=== PATIENT | male | born 1955 | race Caucasian/White ===

== ENCOUNTER → 2016-09-04 | Outpatient (CLI) | payer BC ==
[~2016-09-04] MED LIST: INVEGA TRINZA IM ONE
[2016-09-04 12:34] VITALS: BP 121/65; PULSE 86; RESP 16; TEMP 97.6
== END | disposition home or self-care (01) ==
LOC: PROCWHC3 11:57
PROVIDERS: ATTEND Psychiatry & Neurology Psychiatry
DX: F20.9 Schizophrenia, unspecified (principal)
CPT/HCPCS: 96372

== ENCOUNTER 2016-10-13 19:11 | Inpatient (IN) | payer BC ==
[2016-10-13] MEDS ORDERED: SODIUM CHLORIDE 0.9% 1,000 ML IV ONE (19:15)
[2016-10-13 19:44] LABS: Glucose,Whole Blood 87 mg/dL (75-99)
[2016-10-13 19:47] LABS: Basophils % (A) 0 %; CH 32.8; CHCM 34.3; Eosinophils % (A) 0 %; HCT 37.2 % (39.0-53.0); HDW 3.08; HGB 12.6 gm/dL (13.0-17.5); Luc # (Auto) 0.18; Luc % (Auto) 3; Lymphocytes # (A) 1.1 k/uL (1.0-4.8); Lymphocytes % (A) 20 %; MCH 32.5 pg (25.0-35.0); MCHC 33.8 g/dL (31.0-37.0); MCV 96.1 fL (80.0-100.0); Mean Platelet Volume 7.4; Monocytes # (A) 0.3 k/uL (0-1.0); Monocytes % (A) 6 %; Neutrophils # (A) 3.7 k/uL (1.3-7.7); Neutrophils % (A) 70 %; RBC 3.87 m/uL (4.30-5.90); RDW 12.3 % (11.5-15.5); WBC 5.4 k/uL (3.8-10.6); WBC (Perox) 5.71
[2016-10-13 20:05] LABS: ALT 32 U/L (21-72); AST 27 U/L (17-59); Acetaminophen <10.0 ug/mL; Alcohol <10 mg/dL; Alkaline Phosphatase 53 U/L (38-126); Anion Gap 12 mmol/L; Blood Urea Nitrogen 17 mg/dL (9-20); Carbon Dioxide 25 mmol/L (22-30); Chloride 107 mmol/L (98-107); Glucose 88 mg/dL (74-99); Non-African American GFR(MDRD) >60 (>60 ml/min/1.73 sqM); Potassium 3.7 mmol/L (3.5-5.1); Salicylate <1.0 mg/dL; Sodium 144 mmol/L (137-145); Total Bilirubin 0.4 mg/dL (0.2-1.3); Total Protein 6.4 g/dL (6.3-8.2)
[2016-10-13 20:11] LABS: Creatine Kinase 41 U/L (55-170)
--- NOTE | 2016-10-13 20:14 | CT ---
EXAMINATION TYPE: CT brain wo con DATE OF EXAM: 10/13/2016 8:08 PM COMPARISON: NONE HISTORY: 61-year-old male shows signs of altered mental status. Confusion. Poor historian. TECHNIQUE: Examination was done in axial plane without intravenous contrast. Coronal and sagittal r econstructions performed. CT DLP: 988.3 mGycm Automated exposure control for dose reduction was used. FINDINGS: There is no evidence of acute intracranial hemorrhage, acute ischemic changes, mass, mass-effect, or extra-axial fluid collection. There is no effacement of cerebral sulci or basal subarachnoid cister ns. There is no hydrocephalus. There is no midline shift. Perez-white matter distinction is preserv ed. Mild age-related supratentorial volume loss. Old blowout fracture medial right orbital wall. Minimal mucosal thickening posterior left ethmoid air cells. Mastoid air cells well pneumatized. IMPRESSION: No acute intracranial abnormality seen. Mild age-related atrophy.
[2016-10-13 20:22] LABS: INR 1.1 (<1.1)
[2016-10-13 20:23] LABS: Creatine Kinase MB 0.4 ng/mL (0.0-2.4); Partial Thromboplastin Time 22.1 sec (22.0-30.0); Troponin I <0.012 ng/mL (0.000-0.034)
--- NOTE | 2016-10-13 20:31 | XR ---
EXAMINATION TYPE: XR chest 2V DATE OF EXAM: 10/13/2016 8:15 PM COMPARISON: None HISTORY: 61 year-old male altered mental status, confusion, swollen legs TECHNIQUE: Frontal and lateral views FINDINGS: The cardiomediastinal silhouette, aorta, and pulmonary vasculature are within normal limits. There is mild bronchial wall thickening and mild hyperinflation. Otherwise, lungs and pleural spaces are anastasiya r. Subtle nipple shadow seen at the peripheral left base. IMPRESSION: Hyperinflation that could be from depth of inspiration or underlying emphysema. Some bronchial wall t hickening suggests bronchitis or chronic asthma. No infiltrates seen.
[2016-10-13 21:32] LABS: Appearance,Urine Clear (Clear); Bilirubin,Urine Negative (Negative); Glucose,Urine (UA) Negative (Negative); Ketones,Urine Negative (Negative); Leukocyte Esterase,Urine Trace (Negative); Mucus,Urine Rare /hpf; Nitrite,Urine Negative (Negative); PH, Urine 6.5 (5.0-8.0); Particle Count 1265; Protein,Urine Trace (Negative); RBC,Urine 79 /hpf (0-5); Specific Gravity,Urine 1.014 (1.001-1.035); UA Billing (MACRO vs. MICRO) MICRO; Urobilinogen,Urine <2.0 mg/dL (<2.0); WBC,Urine 12 /hpf (0-5)
--- NOTE | 2016-10-13 21:34 | ED ---
Altered Mental Status HPI - General Source: patient, EMS, RN notes reviewed Mode of arrival: EMS Limitations: altered mental status - History of Present Illness MD Complaint: altered mental status, other <Bryn Jeong - Last Filed: 10/13/16 21:34> <Binu Dorman - Last Filed: 10/13/16 22:59> - General Chief Complaint: Altered Mental Status Stated Complaint: Altered mental Time Seen by Provider: 10/13/16 19:11 - History of Present Illness Initial Comments: This is a 61-year-old male with a history of schizophrenia who is brought in by EMS for evaluation after being found walking on the street in just his underwear nares home. Patient denies any fevers chills nausea vomiting sweats or trauma he denies any drugs or alcohol. He is not very conversant however with answers. He apparently is on medications but states they are not working. He has no other complaints at this time. (Bryn Jeong) - Related Data Home Medications Medication Instructions Recorded Confirmed Simvastatin [Zocor] 40 mg PO HS 02/09/16 10/13/16 Paliperidone Palmitate [Invega 410 mg IM Q90D 09/04/16 10/13/16 Trinza] Acetaminophen with Codeine 1 tab PO TID PRN 10/13/16 10/13/16 [Tylenol w/codeine #4] Diazepam [Valium] 5 mg PO TID PRN 10/13/16 10/13/16 Allergies Allergy/AdvReac Type Severity Reaction Status Date / Time NSAIDS (Non-Steroidal AdvReac Nausea Verified 10/13/16 19:54 Anti-Inflamma Review of Systems ROS Other: All systems not noted in ROS Statement are negative. <Bryn Jeong - Last Filed: 10/13/16 21:34> ROS Other: All systems not noted in ROS Statement are negative. <Binu Dorman - Last Filed: 10/13/16 22:59> ROS Statement: Those systems with pertinent positive or pertinent negative responses have been documented in the HPI. Past Medical History Past Medical History: Hyperlipidemia History of Any Multi-Drug Resistant Organisms: None Reported Past Surgical History: Orthopedic Surgery Additional Past Surgical History / Comment(s): bilateral ankles, removal of skin cancer on l sabianism Past Psychological History: Anxiety, Bipolar, Depression, Schizoaffective Disorder Smoking Status: Former smoker Past Alcohol Use History: None Reported Past Drug Use History: None Reported <Bryn Jeong - Last Filed: 10/13/16 21:34> General Exam Limitations: altered mental status General appearance: alert Head exam: Present: atraumatic, normocephalic, normal inspection Eye exam: Present: normal appearance, PERRL, EOMI. Absent: scleral icterus, conjunctival injection, periorbital swelling ENT exam: Present: normal exam, mucous membranes moist Neck exam: Present: normal inspection. Absent: tenderness, meningismus, lymphadenopathy Respiratory exam: Present: normal lung sounds bilaterally. Absent: respiratory distress, wheezes, rales, rhonchi, stridor Cardiovascular Exam: Present: regular rate, normal rhythm, normal heart sounds. Absent: systolic murmur, diastolic murmur, rubs, gallop, clicks GI/Abdominal exam: Present: soft, normal bowel sounds. Absent: distended, tenderness, guarding, rebound, rigid Extremities exam: Present: normal inspection, full ROM, normal capillary refill. Absent: tenderness, pedal edema, joint swelling, calf tenderness Back exam: Present: normal inspection Neurological exam: Present: alert, oriented X3, CN II-XII intact Psychiatric exam: Present: depressed, flat affect Skin exam: Present: warm, dry, intact, normal color. Absent: rash <Bryn Jeong - Last Filed: 10/13/16 21:34> <Binu Dorman - Last Filed: 10/13/16 22:59> - General Exam Comments Initial Comments: Is a well-developed well-nourished awake alert but slow to respond male. (Bryn Jeong) Course <Bryn Jeogn - Last Filed: 10/13/16 21:34> <Binu Dorman - Last Filed: 10/13/16 22:59> Vital Signs 10/13/16 10/13/16 10/13/16 19:15 20:15 21:00 Temperature 97.5 F L Pulse Rate 72 70 67 Respiratory 18 18 18 Rate Blood Pressure 114/57 114/58 106/60 O2 Sat by Pulse 97 100 98 Oximetry 10/13/16 22:30 Temperature Pulse Rate 72 Respiratory 18 Rate Blood Pressure 115/58 O2 Sat by Pulse 99 Oximetry - Reevaluation(s) Reevaluation #1: 10/13/16 21:35 The patient will be evaluated by psychiatric service. Patient will be endorsed to Dr. Dorman who will make the final disposition (Bryn Jeong) Medical Decision Making - Lab Data Result diagrams: 10/13/16 19:25 10/13/16 19:25 - EKG Data -: EKG Interpreted by [facility] EKG shows normal: sinus rhythm (Sinus rhythm with a rate of 77 appear of 01 66 QRS duration 80 QT/QTC of 370/[address] complex [address]-t wave changes.) <Bryn Jeong - Last Filed: 10/13/16 21:34> - Lab Data Result diagrams: 10/13/16 19:25 10/13/16 19:25 <Binu Dorman - Last Filed: 10/13/16 22:59> - Lab Data Lab Results 10/13/16 10/13/16 10/13/16 Range/Units 19:25 19:25 19:25 WBC 5.4 (3.8-10.6) k/uL RBC 3.87 L (4.30-5.90) m/uL Hgb 12.6 L (13.0-17.5) gm/dL Hct 37.2 L (39.0-53.0) % MCV 96.1 (80.0-100.0) fL MCH 32.5 (25.0-35.0) pg MCHC 33.8 (31.0-37.0) g/dL RDW 12.3 (11.5-15.5) % Plt Count 199 (150-450) k/uL Neutrophils % 70 % Lymphocytes % 20 % Monocytes % 6 % Eosinophils % 0 % Basophils % 0 % Neutrophils # 3.7 (1.3-7.7) k/uL Lymphocytes # 1.1 (1.0-4.8) k/uL Monocytes # 0.3 (0-1.0) k/uL Eosinophils # 0.0 (0-0.7) k/uL Basophils # 0.0 (0-0.2) k/uL PT (9.0-12.0) sec INR (<1.1) APTT (22.0-30.0) sec Sodium 144 (137-145) mmol/L Potassium 3.7 (3.5-5.1) mmol/L Chloride 107 (98-107) mmol/L Carbon Dioxide 25 (22-30) mmol/L Anion Gap 12 mmol/L BUN 17 (9-20) mg/dL Creatinine 0.60 L (0.66-1.25) mg/dL Est GFR (MDRD) Af Amer >60 (>60 ml/min/1.73 sqM) Est GFR (MDRD) Non-Af >60 (>60 ml/min/1.73 sqM) Glucose 88 (74-99) mg/dL POC Glucose (mg/dL) (75-99) mg/dL POC Glu Pastry Supervisor ID Calcium 9.0 (8.4-10.2) mg/dL Magnesium 2.0 (1.6-2.3) mg/dL Total Bilirubin 0.4 (0.2-1.3) mg/dL AST 27 (17-59) U/L ALT 32 (21-72) U/L Alkaline Phosphatase 53 (38-126) U/L Ammonia (<30) umol/L Total Creatine Kinase 41 L (55-170) U/L CK-MB (CK-2) 0.4 (0.0-2.4) ng/mL CK-MB (CK-2) Rel Index 1.0 Troponin I <0.012 (0.000-0.034) ng/mL Total Protein 6.4 (6.3-8.2) g/dL Albumin 4.0 (3.5-5.0) g/dL Urine Color Urine Appearance (Clear) Urine pH (5.0-8.0) Ur Specific [place] (1.001-1.035) Urine Protein (Negative) Urine Glucose (UA) (Negative) Urine Ketones (Negative) Urine Blood (Negative) Urine Nitrite (Negative) Urine Bilirubin (Negative) Urine Urobilinogen (<2.0) mg/dL Ur Leukocyte Esterase (Negative) Urine RBC (0-5) /hpf Urine WBC (0-5) /hpf Urine Mucus (None) /hpf Salicylates <1.0 mg/dL Urine Opiates Screen (NotDetected) Ur Oxycodone Screen (NotDetected) Urine Methadone Screen (NotDetected) Ur Propoxyphene Screen (NotDetected) Acetaminophen <10.0 ug/mL Ur Barbiturates Screen (NotDetected) U Tricyclic Antidepress (NotDetected) Ur Phencyclidine Scrn (NotDetected) Ur Amphetamines Screen (NotDetected) U Methamphetamines Scrn (NotDetected) U Benzodiazepines Scrn (NotDetected) Urine Cocaine Screen (NotDetected) U Marijuana (THC) Screen (NotDetected) Serum Alcohol <10 mg/dL 10/13/16 10/13/16 10/13/16 Range/Units 19:25 19:25 19:43 WBC (3.8-10.6) k/uL RBC (4.30-5.90) m/uL Hgb (13.0-17.5) gm/dL Hct (39.0-53.0) % MCV (80.0-100.0) fL MCH (25.0-35.0) pg MCHC (31.0-37.0) g/dL RDW (11.5-15.5) % Plt Count (150-450) k/uL Neutrophils % % Lymphocytes % % Monocytes % % Eosinophils % % Basophils % % Neutrophils # (1.3-7.7) k/uL Lymphocytes # (1.0-4.8) k/uL Monocytes # (0-1.0) k/uL Eosinophils # (0-0.7) k/uL Basophils # (0-0.2) k/uL PT 11.0 (9.0-12.0) sec INR 1.1 (<1.1) APTT 22.1 (22.0-30.0) sec Sodium (137-145) mmol/L Potassium (3.5-5.1) mmol/L Chloride (98-107) mmol/L Carbon Dioxide (22-30) mmol/L Anion Gap mmol/L BUN (9-20) mg/dL Creatinine (0.66-1.25) mg/dL Est GFR (MDRD) Af Amer (>60 ml/min/1.73 sqM) Est GFR (MDRD) Non-Af (>60 ml/min/1.73 sqM) Glucose (74-99) mg/dL POC Glucose (mg/dL) 87 (75-99) mg/dL POC Glu Pastry Supervisor ID Elena Brand Calcium (8.4-10.2) mg/dL Magnesium (1.6-2.3) mg/dL Total Bilirubin (0.2-1.3) mg/dL AST (17-59) U/L ALT (21-72) U/L Alkaline Phosphatase (38-126) U/L Ammonia <9 (<30) umol/L Total Creatine Kinase (55-170) U/L CK-MB (CK-2) (0.0-2.4) ng/mL CK-MB (CK-2) Rel Index Troponin I (0.000-0.034) ng/mL Total Protein (6.3-8.2) g/dL Albumin (3.5-5.0) g/dL Urine Color Urine Appearance (Clear) Urine pH (5.0-8.0) Ur Specific [place] (1.001-1.035) Urine Protein (Negative) Urine Glucose (UA) (Negative) Urine Ketones (Negative) Urine Blood (Negative) Urine Nitrite (Negative) Urine Bilirubin (Negative) Urine Urobilinogen (<2.0) mg/dL Ur Leukocyte Esterase (Negative) Urine RBC (0-5) /hpf Urine WBC (0-5) /hpf Urine Mucus (None) /hpf Salicylates mg/dL Urine Opiates Screen (NotDetected) Ur Oxycodone Screen (NotDetected) Urine Methadone Screen (NotDetected) Ur Propoxyphene Screen (NotDetected) Acetaminophen ug/mL Ur Barbiturates Screen (NotDetected) U Tricyclic Antidepress (NotDetected) Ur Phencyclidine Scrn (NotDetected) Ur Amphetamines Screen (NotDetected) U Methamphetamines Scrn (NotDetected) U Benzodiazepines Scrn (NotDetected) Urine Cocaine Screen (NotDetected) U Marijuana (THC) Screen (NotDetected) Serum Alcohol mg/dL 10/13/16 10/13/16 Range/Units 21:00 21:00 WBC (3.8-10.6) k/uL RBC (4.30-5.90) m/uL Hgb (13.0-17.5) gm/dL Hct (39.0-53.0) % MCV (80.0-100.0) fL MCH (25.0-35.0) pg MCHC (31.0-37.0) g/dL RDW (11.5-15.5) % Plt Count (150-450) k/uL Neutrophils % % Lymphocytes % % Monocytes % % Eosinophils % % Basophils % % Neutrophils # (1.3-7.7) k/uL Lymphocytes # (1.0-4.8) k/uL Monocytes # (0-1.0) k/uL Eosinophils # (0-0.7) k/uL Basophils # (0-0.2) k/uL PT (9.0-12.0) sec INR (<1.1) APTT (22.0-30.0) sec Sodium (137-145) mmol/L Potassium (3.5-5.1) mmol/L Chloride (98-107) mmol/L Carbon Dioxide (22-30) mmol/L Anion Gap mmol/L BUN (9-20) mg/dL Creatinine (0.66-1.25) mg/dL Est GFR (MDRD) Af Amer (>60 ml/min/1.73 sqM) Est GFR (MDRD) Non-Af (>60 ml/min/1.73 sqM) Glucose (74-99) mg/dL POC Glucose (mg/dL) (75-99) mg/dL POC Glu Pastry Supervisor ID Calcium (8.4-10.2) mg/dL Magnesium (1.6-2.3) mg/dL Total Bilirubin (0.2-1.3) mg/dL AST (17-59) U/L ALT (21-72) U/L Alkaline Phosphatase (38-126) U/L Ammonia (<30) umol/L Total Creatine Kinase (55-170) U/L CK-MB (CK-2) (0.0-2.4) ng/mL CK-MB (CK-2) Rel Index Troponin I (0.000-0.034) ng/mL Total Protein (6.3-8.2) g/dL Albumin (3.5-5.0) g/dL Urine Color Yellow Urine Appearance Clear (Clear) Urine pH 6.5 (5.0-8.0) Ur Specific [place] 1.014 (1.001-1.035) Urine Protein Trace H (Negative) Urine Glucose (UA) Negative (Negative) Urine Ketones Negative (Negative) Urine Blood Moderate H (Negative) Urine Nitrite Negative (Negative) Urine Bilirubin Negative (Negative) Urine Urobilinogen <2.0 (<2.0) mg/dL Ur Leukocyte Esterase Trace H (Negative) Urine RBC 79 H (0-5) /hpf Urine WBC 12 H (0-5) /hpf Urine Mucus Rare H (None) /hpf Salicylates mg/dL Urine Opiates Screen Detected H (NotDetected) Ur Oxycodone Screen Not Detected (NotDetected) Urine Methadone Screen Not Detected (NotDetected) Ur Propoxyphene Screen Not Detected (NotDetected) Acetaminophen ug/mL Ur Barbiturates Screen Not Detected (NotDetected) U Tricyclic Antidepress Not Detected (NotDetected) Ur Phencyclidine Scrn Not Detected (NotDetected) Ur Amphetamines Screen Not Detected (NotDetected) U Methamphetamines Scrn Not Detected (NotDetected) U Benzodiazepines Scrn Detected H (NotDetected) Urine Cocaine Screen Not Detected (NotDetected) U Marijuana (THC) Screen Not Detected (NotDetected) Serum Alcohol mg/dL Disposition <Bryn Jeong - Last Filed: 10/13/16 21:34> Time of Disposition: 22:59 <Binu Dorman - Last Filed: 10/13/16 22:59> Clinical Impression: Acute exacerbation of chronic schizophrenia Disposition: ADMITTED IP TO THIS HOSP Referrals: Ashish Card MD [Primary Care Provider] - 1-2 days
[2016-10-13] MEDS ORDERED: cefTRIAXone 1,000 MG VIAL IM STA (22:58)
[2016-10-14] MEDS ORDERED: ACETAMINOPHEN TAB 325 MG TAB PO PRN (00:31)
[2016-10-14] MEDS ORDERED: MAG HYDROX/AL HYDROX/SIMETH 30 ML CUP PO PRN (00:31)
[2016-10-14] MEDS ORDERED: MAGNESIUM HYDROXIDE 2,400 MG/10 ML CUP PO PRN (00:31)
[2016-10-14] MEDS ORDERED: NICOTINE 21MG/24HR PATCH TRANSDERM STA (00:39)
[2016-10-14] MEDS ORDERED: WATER FOR INJECTION, STERILE 10 ML IV ONE (00:55)
[2016-10-14] MEDS ORDERED: ZIPRASIDONE 20 MG VIAL IM ONE (00:55)
[2016-10-14] MEDS: LORazepam 2 MG/ML SYRINGE IM PRN (00:58)
[2016-10-14] MEDS: ZIPRASIDONE 20 MG VIAL IM PRN (00:58)
[2016-10-14] MEDS: PALIPERIDONE 6 MG TAB.ER.24 PO SCH (09:02)
[2016-10-14] MEDS: NICOTINE 21MG/24HR PATCH TRANSDERM SCH (09:03)
--- NOTE | 2016-10-14 10:25 | P.HP ---
Psychiatric H&P - . H&P Date: 10/14/16 History & Physical: IDENTIFYING DATA: Mr. Barraza is a 61-year-old male who has a history of schizophrenia. HISTORY OF PRESENT ILLNESS: I reviewed the medical record and interviewed him. EMS brought him to the emergency room because he is walking outside his apartment wearing only his underwear. In the emergency room she appeared confused and provided no historical information. The emergency room physician evaluated him for an acute change in mental status. There was no evidence of an acute infectious or metabolic process. CT scanned showed only age-related cortical changes and a chest x-ray was only suggestive of bronchitis or chronic asthma. He provided little information to the EPS nurse. His daughter was at the bedside but she was not informed or has been involved in her father's condition. She stated that her uncle, the patient's brother, is the caregiver; however he is in [place] and there was no alternative plan in place for the care and supervision or her father during his absence. During our interview he provided little information. He responded to questions with single word answers, shaking or nodding his head, or holding up fingers in response to questions that may be answered with a number. He mentioned that he been frightened but would provide no additional information. He nodded his head to the affirmative when I inquired about anxiety. He gestured to indicate "no" when I asked about depression. When I asked about psychotic symptoms he stared blankly and would not gesture or speak. PAST PSYCHIATRIC HISTORY: He has a history of schizophrenia and at least 4 prior admissions to this unit. His last admission was in January 2009. His discharge diagnoses included psychotic disorder not otherwise specified, major depressive disorder recurrent, history of nicotine dependence and history of alcohol use as well as encephalopathy associated with psychotropic medication and interaction with narcotics and muscle relaxers. His discharge plan included risperidone 3 mg at night, Ativan 1 mg 3 times a day when necessary and Dalmane 15 mg to 30 mg at bedtime for sleep. According to the record he has been followed and [facility]. His current provider is Dr. Peterson. Current psychotropic medications include Invega Intrinza 410 mg IM every 90 days and Valium 5 mg 3 times a day when necessary. His last clinic visit was in August 2016. PAST MEDICAL HISTORY: He would not provide information about past medical history. According to the record is no history of major medical illness. ALLERGIES: NSAIDs. SUBSTANCE USE HISTORY: He would not provide information about substance use or substance use history. According to the record's history of alcohol use and possible narcotic use problems. FAMILY PSYCHIATRIC/SUBSTANCE USE HISTORY: The record, a brother committed suicide. LEGAL HISTORY: According to the record, he has no history of legal problems. SOCIAL HISTORY: He stated that he lives alone in a condominium. His brother is his technology sales consultant. He has one child with whom he has no contact. MENTAL STATUS EXAM: He presented as a tall, thin and pale appearing elderly male with long abdi unkempt brandt. He made eye contact and appeared to attend to interview. He had no prominent physical abnormalities. He had a flat facial expression. He was alert and oriented to person, place and time. He showed marked psychomotor retardation but no abnormal involuntary movements. His gait was slow but steady. His speech was not spontaneous. He spoke no more than 1 or 2 words. He appeared guarded and suspicious. He shook her said tonight. When I asked about suicidal ideation or wishes. He would not answer questions about depressive cognitions such as hopelessness, helplessness or worthlessness. He stared blankly when I asked about auditory or visual hallucinations, ideas reference, thought insertion, thought broadcasting or thought control. He had such an extreme paucity of speech that was difficult to evaluate his thought content or process. He did not appear to be responding to internal stimuli during our interview. Global impression of intellect is average. He appears to be aware of his illness and need for mental health treatment. STRENGTHS: Stable housing, stable income, supportive family, engagement with mental health treatment. WEAKNESSES: Absence of primary technology sales consultant. IMPRESSION: He is a 61-year-old male with history of schizophrenia. He presented to the unit with increased confusion. He appears guarded and suspicious. He provided little information on had marked poverty of speech during the interview. He should be treated on an inpatient basis with a combination of psychopharmacology and multimodal therapy. PRINCIPLE DIAGNOSIS: Schizophrenia, rule out unspecified cognitive disorder, rule out schizoaffective disorder, rule out alcohol use disorder RECOMMENDATION: Continue inpatient psychiatric hospitalization. Suicide precautions with 15 minute checks. Obtain collateral information from family. Consult medicine for initial physical exam and medical history. Begin Invega 6 mg per day until we can verify stated last administration of Invega Intrinza. Lorazepam 1 mg by mouth 3 times a day when necessary for anxiety or agitation. Geodon 20 mg IM twice a day when necessary for acute agitation or psychosis. Encourage participation in therapeutic groups and activities as tolerated. Encourage attendance to personal hygiene. Evaluate clinical status response to treatment on a daily basis. Allergies Allergy/AdvReac Type Severity Reaction Status Date / Time NSAIDS (Non-Steroidal AdvReac Nausea Verified 10/13/16 19:54 Anti-Inflamma Vital Signs Temp 97.8 F 10/14/16 06:12 Pulse 85 10/14/16 06:12 Resp 17 10/14/16 06:12 BP 92/54 10/14/16 06:12 Pulse Ox 96 10/14/16 06:12 Intake & Output 10/13/16 10/14/16 10/14/16 18:59 06:59 18:59 Weight 65.771 kg Laboratory Last Values WBC 5.4 k/uL (3.8-10.6) 10/13/16 19:25 RBC 3.87 m/uL (4.30-5.90) L 10/13/16 19:25 Hgb 12.6 gm/dL (13.0-17.5) L 10/13/16 19:25 Hct 37.2 % (39.0-53.0) L 10/13/16 19:25 MCV 96.1 fL (80.0-100.0) 10/13/16 19:25 MCH 32.5 pg (25.0-35.0) 10/13/16 19:25 MCHC 33.8 g/dL (31.0-37.0) 10/13/16 19:25 RDW 12.3 % (11.5-15.5) 10/13/16 19:25 Plt Count 199 k/uL (150-450) 10/13/16 19:25 Neutrophils % 70 % 10/13/16 19:25 Lymphocytes % 20 % 10/13/16 19:25 Monocytes % 6 % 10/13/16 19:25 Eosinophils % 0 % 10/13/16 19:25 Basophils % 0 % 10/13/16 19:25 Neutrophils # 3.7 k/uL (1.3-7.7) 10/13/16 19:25 Lymphocytes # 1.1 k/uL (1.0-4.8) 10/13/16 19:25 Monocytes # 0.3 k/uL (0-1.0) 10/13/16 19:25 Eosinophils # 0.0 k/uL (0-0.7) 10/13/16 19:25 Basophils # 0.0 k/uL (0-0.2) 10/13/16 19:25 PT 11.0 sec (9.0-12.0) 10/13/16 19:25 INR 1.1 (<1.1) 10/13/16 19:25 APTT 22.1 sec (22.0-30.0) 10/13/16 19:25 Sodium 144 mmol/L (137-145) 10/13/16 19:25 Potassium 3.7 mmol/L (3.5-5.1) 10/13/16 19:25 Chloride 107 mmol/L (98-107) 10/13/16 19:25 Carbon Dioxide 25 mmol/L (22-30) 10/13/16 19:25 Anion Gap 12 mmol/L 10/13/16 19:25 BUN 17 mg/dL (9-20) 10/13/16 19:25 Creatinine 0.60 mg/dL (0.66-1.25) L 10/13/16 19:25 Est GFR (MDRD) Af Amer >60 (>60 ml/min/1.73 sqM) 10/13/16 19:25 Est GFR (MDRD) Non-Af >60 (>60 ml/min/1.73 sqM) 10/13/16 19:25 Glucose 88 mg/dL (74-99) 10/13/16 19:25 POC Glucose (mg/dL) 87 mg/dL (75-99) 10/13/16 19:43 POC Glu Digital Retoucher ID Elena Brand 10/13/16 19:43 Calcium 9.0 mg/dL (8.4-10.2) 10/13/16 19:25 Magnesium 2.0 mg/dL (1.6-2.3) 10/13/16 19:25 Total Bilirubin 0.4 mg/dL (0.2-1.3) 10/13/16 19:25 AST 27 U/L (17-59) 10/13/16 19:25 ALT 32 U/L (21-72) 10/13/16 19:25 Alkaline Phosphatase 53 U/L (38-126) 10/13/16: Ammonia <9 umol/L (<30) 10/13/16 19:25 Total Creatine Kinase 41 U/L (55-170) L 10/13/16:25 CK-MB (CK-2) 0.4 ng/mL (0.0-2.4) 10/13/16: CK-MB (CK-2) Rel Index 1.0 10/13/16: Troponin I <0.012 ng/mL (0.000-0.034) 10/13/16: Total Protein 6.4 g/dL (6.3-8.2) 10/13/16: Albumin 4.0 g/dL (3.5-5.0) 10/13/16: Urine Color Yellow 10/13/16 21:00 Urine Appearance Clear (Clear) 10/13/16 21:00 Urine pH 6.5 (5.0-8.0) 10/13/16 21:00 Ur Specific [place] 1.014 (1.001-1.035) 10/13/16 21:00 Urine Protein Trace (Negative) H 10/13/16 21:00 Urine Glucose (UA) Negative (Negative) 10/13/16 21:00 Urine Ketones Negative (Negative) 10/13/16 21:00 Urine Blood Moderate (Negative) H 10/13/16 21:00 Urine Nitrite Negative (Negative) 10/13/16 21:00 Urine Bilirubin Negative (Negative) 10/13/16 21:00 Urine Urobilinogen <2.0 mg/dL (<2.0) 10/13/16 21:00 Ur Leukocyte Esterase Trace (Negative) H 10/13/16 21:00 Urine RBC 79 /hpf (0-5) H 10/13/16 21:00 Urine WBC 12 /hpf (0-5) H 10/13/16 21:00 Urine Mucus Rare /hpf (None) H 10/13/16 21:00 Salicylates <1.0 mg/dL 10/13/16 19:25 Urine Opiates Screen Detected (NotDetected) H 10/13/16 21:00 Ur Oxycodone Screen Not Detected (NotDetected) 10/13/16 21:00 Urine Methadone Screen Not Detected (NotDetected) 10/13/16 21:00 Ur Propoxyphene Screen Not Detected (NotDetected) 10/13/16 21:00 Acetaminophen <10.0 ug/mL 10/13/16 19:25 Ur Barbiturates Screen Not Detected (NotDetected) 10/13/16 21:00 U Tricyclic Antidepress Not Detected (NotDetected) 10/13/16 21:00 Ur Phencyclidine Scrn Not Detected (NotDetected) 10/13/16 21:00 Ur Amphetamines Screen Not Detected (NotDetected) 10/13/16 21:00 U Methamphetamines Scrn Not Detected (NotDetected) 10/13/16 21:00 U Benzodiazepines Scrn Detected (NotDetected) H 10/13/16 21:00 Urine Cocaine Screen Not Detected (NotDetected) 10/13/16 21:00 U Marijuana (THC) Screen Not Detected (NotDetected) 10/13/16 21:00 Serum Alcohol <10 mg/dL 10/13/16 19:25 10/14/16 07:51 10/14/16 09:56
[2016-10-14] MEDS: ATORVASTATIN 40 MG TAB PO SCH (21:39)
[2016-10-14] MEDS: LORazepam 1 MG TAB PO PRN (21:40)
[2016-10-15] MEDS ORDERED: WATER FOR INJECTION, STERILE 10 ML IV ONE ×2 (02:27→17:11)
[2016-10-15] MEDS ORDERED: ZIPRASIDONE 20 MG VIAL IM ONE ×2 (02:27→17:12)
[2016-10-15] MEDS: ZIPRASIDONE 20 MG VIAL IM PRN ×2 (02:30→17:24)
--- NOTE | 2016-10-15 05:29 | CONS ---
DATE OF CONSULTATION: CHIEF COMPLAINT: Acute psychosis. HISTORY OF PRESENT ILLNESS: This is another admission for this 61-year-old schizophrenic gentleman. Apparently he started to have difficulty and was brought to the emergency room where he was admitted with an acute psychosis. REVIEW OF SYSTEMS: He has had no cough, chest pain, fever, chills, abdominal pain, vomiting, diarrhea, etc. Past medical history, family history, and personal and social histories reveal that he is allergic to NSAIDs. His current medications include Invega intramuscular injection 117 mg per 0.75 mL every 3 months, Valium 5 t.i.d. p.r.n., Tylenol for t.i.d. p.r.n., simvastatin 40 at bedtime. The remainder of his history is unremarkable and can be found in his admitting summary. PHYSICAL EXAMINATION: Blood pressure 112/70, pulse 90, respirations 16. He is afebrile. GENERAL: He appeared to be well developed, well nourished, no acute distress. Skin color is normal. Skin is warm and dry. Lymph nodes are not enlarged. Head, ears, eyes, nose, mouth, and throat were normal. Carotids were normal. Chest is clear. Cardiac exam was normal. ABDOMEN: Soft and nontender. EXTREMITIES: Normal. IMPRESSION: 1. Acute psychosis. 2. Schizophrenia. RECOMMENDATIONS: None.
[2016-10-15] MEDS: PALIPERIDONE 6 MG TAB.ER.24 PO SCH (08:25)
[2016-10-15] MEDS: LORazepam 1 MG TAB PO PRN (08:25)
[2016-10-15] MEDS: NICOTINE 21MG/24HR PATCH TRANSDERM SCH (08:25)
[2016-10-15] MEDS: DIAZEPAM 5 MG TAB PO SCH ×3 (11:13→21:04)
--- NOTE | 2016-10-15 13:05 | P.PN ---
Progress Note - Text SUBJECTIVE: I reviewed the medical record, interviewed Mr. Haas and discuss his treatment and treatment plan during team meeting. He complained of feeling anxious. I explained that I reviewed his outpatient medications and wrote an order to continue his outpatient dose of diazepam. He was mute when asked him why he was walking around the unit last night naked. He is unaware when his brother will return to the [place]. OBJECTIVE: He presented as a thin, pale and frail appearing 61-year-old male who is laying on his back in his bed. He refused to get up for the interview. He did not make eye contact but attended to the interview. He had a flat facial expression. He was alert and oriented to person, place and time. He showed psychomotor retardation but no abnormal involuntary movements. Her speech was not spontaneous and decreased rate, rhythm and volume. His affect was flat. He denied suicidal ideation or wishes. He did not expressed feeling hopeless, helpless or worthless. He did not express phobias, ideas of reference or paranoid ideation. He denied hallucinations and did not appear to be responding to internal stimuli. He demonstrated poverty of speech and poverty of content. Medical consult appreciated I reviewed his recent outpatient notes. His current medications include diazepam 5 mg 3 times a day and either Invega Sustenna 117 mg monthly or Invega Trinzar 410 mg every 3 months. Handwritten is a note indicating Invega Trinza was started in May 2016 and he receives his injections through the [facility]. ASSESSMENT: He has slow chronically and severely mentally ill. His decompensation appears to be related to the absence of his brother who is his primary access rep. Overall he appears severely mentally ill and minimally improve from admission. PLAN: Continue inpatient hospitalization. youth support worker is attempting to contact his daughter and/or has brother. Continue Invega 6 mg daily. Begin Valium 5 mg 3 times a day when necessary for anxiety. Encourage participation in therapeutic groups and activities. Evaluate clinical status response to treatment on a daily basis.
[2016-10-15] MEDS: ATORVASTATIN 40 MG TAB PO SCH (21:04)
[2016-10-16] MEDS: PALIPERIDONE 6 MG TAB.ER.24 PO SCH (09:57)
[2016-10-16] MEDS: DIAZEPAM 5 MG TAB PO SCH ×3 (09:57→21:38)
[2016-10-16] MEDS: NICOTINE 21MG/24HR PATCH TRANSDERM SCH (09:58)
[2016-10-16] MEDS ORDERED: WATER FOR INJECTION, STERILE 10 ML IV ONE (12:21)
[2016-10-16] MEDS: ZIPRASIDONE 20 MG VIAL IM PRN (12:32)
--- NOTE | 2016-10-16 14:13 | P.PN ---
Progress Note - Text SUBJECTIVE: I reviewed the medical record, attempted to interview Mr. Barraza and discussed his treatment and treatment plan during team meeting. He was laying in bed in the wrong room. Nursing staff have repeatedly attempted to redirect him to his room but he returns to another room. He was laying on his stomach in a position as though he were ready to do a push up. He stood up and began to posture. He stared blankly when I asked him questions. He gave conflicting answers to questions. For example, in response to questions about auditory hallucinations he replied "no" then later shook his head to the affirmative. OBJECTIVE: He presented as a disheveled, pale and confused appearing 59-year- old male with a long unkempt brandt. He was wearing a hospital gown and backwards direction. He did not appear to attend to the interview. He was markedly internally preoccupied. He postured intermittently during the interview but did not hold the past year for a sustained period of time. He showed marked psychomotor retardation and periods of catatonia. His speech was not spontaneous. He showed poverty of speech and poverty of content. His affect was flat unreactive. I was unable to fully evaluate his thought content his thought process. However, she appeared guarded and suspicious. At times he appeared to be responding to internal stimuli. He received 20 mg of Geodon IM this afternoon for restlessness and sustained posturing in the hallway. ASSESSMENT: He appears markedly mentally ill and mentally improve from admission. He showed little improvement to the current dose of haloperidol. PLAN: Continue inpatient hospitalization. Continue suicide precautions with 15 minute checks. Continue Invega 6 mg daily. If it were not for his history of noncompliance I would start clozapine. Consider a trial of another antipsychotic, possibly first-generation, that is available as a long-acting injectable. Continue Valium 5 mg 3 times a day, Geodon 20 mg IM twice a day when necessary for agitation acute psychosis and lorazepam 1 mg IM every 8 hours for agitation or acute anxiety. He will need close nursing supervision. Evaluate clinical status and response to treatment on a daily basis.
[2016-10-16] MEDS: ATORVASTATIN 40 MG TAB PO SCH (21:38)
[2016-10-17] MEDS: PALIPERIDONE 6 MG TAB.ER.24 PO SCH (09:19)
[2016-10-17] MEDS: DIAZEPAM 5 MG TAB PO SCH ×2 (09:19→20:54)
[2016-10-17] MEDS: NICOTINE 21MG/24HR PATCH TRANSDERM SCH (09:19)
--- NOTE | 2016-10-17 09:19 | P.PN ---
Progress Note - Text Interval history: The patient is found in the hallway he follows me to an interview room. The patient remains acutely psychotic. In the hallway he is observed holding a variety of bizarre poses briefly appearing catatonic. He does follow verbal redirection after 2-3 attempts. The patient has no spontaneous speech. He will stare for several minutes without speaking. He did under a few one-word responses. He describes his mood is "not good". He is known to me from the outpatient clinic as I have overseeing his psychiatric care for the last several years. He does have a known history of schizophrenia. We had recently started him on an invega trinza with his last dose being 410 mg on 09/04/2016. Prior to that he was successfully treated with invega systemic 117 mg monthly. He is currently been supplemented with invega 6 mg orally. The patient has a chronic history of back pain his primary care physician Dr. Card prescribes him opiate analgesics and Valium. The patient does have a history of overusing those in the past it is not clear if he has been more recently. His urinalysis did have some abnormal values with a white blood count of 12. We will see if that is available for culture or we will repeat a UA. Staff have been assisting the patient with eating. Mental status exam: The patient is a thin male appearing older than his stated age he has short hair he is a very long white brandt. He is dressed in hospital attire. Eye contact is staring in nature affect is flat he demonstrates no spontaneous speech. He offered approximate 3 one-word answers to questions asked. He often stares. He will hold bizarre poses for 1-2 minutes at a time and then change to another poses. He does not respond to questions regarding hallucinations or specific delusions. The patient is not oriented other than correctly name in the years 2017. Insight and judgment are poor. He is not demonstrating any verbal or physical aggressiveness. Plan: We will continue with the oral dose of invega 6 mg daily. We may consider atypical antipsychotic in its place. We will explore the possibility of a urinary tract infection. Vital signs reviewed blood pressure normal he does demonstrate some tachycardia. We will discuss his oral intake with team meeting. The patient requires hospitalization due to his acute psychosis. His current symptoms are not part of his baseline. He does have paranoid thoughts at baseline but he is able to demonstrate a much higher level of function than his current status.
--- NOTE | 2016-10-17 11:08 | P.PN ---
Progress Note - Text Received a phone call from the nursing staff on the mental health unit. Nursing indicates that the patient has been afebrile no white count and since patient may need an antibiotic chest x-ray shows bronchial wall thickening suggestive of bronchitis or chronic asthma. No infiltrate seen. The urinalysis that was obtained on the moderate amount of blood. Trace leukocytes. We'll start patient on doxycycline 1 to treat the bronchitis an attempt to repeat a urine. No further recommendations at this time The above dictated assessment and findings were discussed with dr philippe Impression and the plan of care have been dictated as directed. Debby Nixon nurse practitioner acting as a scribe for dr philippe
[2016-10-17] MEDS: DOXYCYCLINE 50 MG CAP PO SCH ×3 (11:35→20:55)
[2016-10-17] MEDS ORDERED: WATER FOR INJECTION, STERILE 10 ML IV ONE (11:49)
[2016-10-17] MEDS ORDERED: ZIPRASIDONE 20 MG VIAL IM ONE (11:49)
[2016-10-17] MEDS: ZIPRASIDONE 20 MG VIAL IM PRN (11:55)
[2016-10-17 15:05] VITALS: BMI 21.4
[2016-10-17] MEDS: ATORVASTATIN 40 MG TAB PO SCH (20:07)
[2016-10-17] MEDS ORDERED: MELATONIN 5 MG TABLET PO SCH (21:00)
[2016-10-18 08:50] LABS: Basophils % (A) 1 %; CH 32.9; Eosinophils % (A) 0 %; HDW 2.96; HGB 13.8 gm/dL (13.0-17.5); Luc # (Auto) 0.21; Luc % (Auto) 3; Lymphocytes # (A) 0.8 k/uL (1.0-4.8); Lymphocytes % (A) 11 %; MCH 33.5 pg (25.0-35.0); MCHC 34.5 g/dL (31.0-37.0); MCV 97.2 fL (80.0-100.0); Mean Platelet Volume 7.1; Monocytes # (A) 0.4 k/uL (0-1.0); Monocytes % (A) 6 %; Neutrophils # (A) 5.3 k/uL (1.3-7.7); Neutrophils % (A) 79 %; RBC 4.11 m/uL (4.30-5.90); RDW 12.4 % (11.5-15.5); WBC 6.7 k/uL (3.8-10.6); WBC (Perox) 6.76
--- NOTE | 2016-10-18 09:00 | P.PN ---
Progress Note - Text Interval history: The patient is found in the hallway with assistance he follows me to the library. The patient does not wish to sit and remains standing. During the time we spoke he demonstrated odd gesturing with his upper extremities. He would move his hands in front of him and behind him. He also held a salute for over 1 minute. Oftentimes when he is asked to ambulate he will begin walking backwards but he is easily redirected to turn around and walk forward. It's documented at he only slept 2 hours last evening. He reports feeling tired. He has been compliant with medication. He was seen by his primary care team again he was started on an antibiotic for possible bronchitis. We will try to repeat the urinalysis. The patient remains clearly psychotic he is functioning poorly without much direction from staff. Mental status exam: The patient is alert he has poor hygiene grooming he is dressed in his own clothing today with assistance from staff. Staff report that they continue to find him inappropriately closed exposing himself. He endorses no hallucinations he endorses no specific delusions but clearly he is psychotic. His thought process is poorly organized. He demonstrates psychomotor slowing. He continues to demonstrate odd posturing of his upper extremities but he does not appear to be rigid area eye contact is staring in nature affect is flat. He is oriented to being at [facility] on the third floor and to month and year. He demonstrates no verbal or physical aggressiveness. Insight and judgment are poor. Plan: The patient will continue on the oral Invega we will increase to 9 mg daily. I will consider augmenting with atypical antipsychotic such as Haldol or Prolixin. We will continue exploring other medical etiologies to his presentation. We are joined blood work today including CMP and CBC. We will continue to monitor him for safety and provide reality orientation when needed. The patient is acutely psychotic he is functioning poorly independently and requires continued psychiatric hospitalization. Vital signs reviewed blood pressure within normal limits he continues to demonstrate some tachycardia. We will continue to track his by mouth intake.
[2016-10-18] MEDS: NICOTINE 21MG/24HR PATCH TRANSDERM SCH (09:13)
[2016-10-18 09:16] LABS: ALT 26 U/L (21-72); AST 45 U/L (17-59); Alkaline Phosphatase 53 U/L (38-126); Anion Gap 15 mmol/L; Blood Urea Nitrogen 19 mg/dL (9-20); Calcium 9.9 mg/dL (8.4-10.2); Carbon Dioxide 27 mmol/L (22-30); Chloride 105 mmol/L (98-107); Glucose 118 mg/dL (74-99); Non-African American GFR(MDRD) >60 (>60 ml/min/1.73 sqM); Potassium 3.8 mmol/L (3.5-5.1); Sodium 147 mmol/L (137-145); Total Bilirubin 1.2 mg/dL (0.2-1.3); Total Protein 7.6 g/dL (6.3-8.2)
[2016-10-18] MEDS: DIAZEPAM 5 MG TAB PO SCH ×2 (12:27→19:56)
[2016-10-18] MEDS: DOXYCYCLINE 50 MG CAP PO SCH ×2 (12:27→19:56)
[2016-10-18] MEDS: PALIPERIDONE 3 MG TAB.ER.24 PO SCH (12:28)
[2016-10-18] MEDS: ATORVASTATIN 40 MG TAB PO SCH (19:56)
[2016-10-18] MEDS: traZODone HCL 50 MG TAB PO SCH (19:56)
[2016-10-18] MEDS: ZIPRASIDONE 20 MG VIAL IM PRN (20:24)
[2016-10-18] MEDS ORDERED: ZIPRASIDONE 20 MG VIAL IM ONE (20:24)
[2016-10-18] MEDS ORDERED: WATER FOR INJECTION, STERILE 10 ML IV ONE (20:24)
[2016-10-19] MEDS: NICOTINE 21MG/24HR PATCH TRANSDERM SCH (08:07)
[2016-10-19] MEDS: DIAZEPAM 5 MG TAB PO SCH ×3 (08:08→21:35)
[2016-10-19] MEDS: DOXYCYCLINE 50 MG CAP PO SCH ×3 (08:08→21:35)
[2016-10-19] MEDS: PALIPERIDONE 3 MG TAB.ER.24 PO SCH (08:08)
--- NOTE | 2016-10-19 15:42 | PN ---
DATE OF SERVICE: 10/19/2016 Mr. Yayo Barraza is a 61-year-old male who was seen, evaluated, examined on the mental health unit while covering for Dr. Ashish Card. Patient has some bronchitis for which he has been started on doxycycline. He has severe degree of catatonic behavior for which he is undergoing therapy for his schizophrenia by psychiatric services. The patient likes to lie down on the floor. He was able to answer some simple questions though. His hemodynamic status is stable His last set of vitals include blood pressure is 110/60, respiratory rate 17, pulse 101, temperature 98, saturation of 99% on room air. HEENT: Unremarkable. Atraumatic, normocephalic. Pharynx is clear. NECK: Supple without lymphadenopathy, jugular venous distention or carotid bruit. LUNGS: Bilateral good air entry is present without any significant rales, rhonchi, or rub. HEART: Regular rate and rhythm. S1 and S2 audible. ABDOMEN: Soft. No rebound or rigidity. EXTREMITIES: +1 peripheral pulses. NEUROLOGICAL EXAMINATION: Otherwise, awake and alert. Medications reviewed. Laboratory data reviewed. Urinalysis a few WBCs, RBCs are seen. The chemistry is significant for hypernatremia, sodium 147. Glucose is 118. CBC within normal limits. The last chest x-ray performed at the time of admission revealed prominent bronchial markings likely emphysema and hyperinflation. IMPRESSION: 1. Severe schizophrenia with catatonic behavior. Patient is undergoing psychiatric evaluation and therapy. 2. Tracheobronchitis. Clinically patient is doing well on doxycycline, tolerating the therapy well. 3. History of smoking and nicotine use, baseline chronic obstructive pulmonary disease. 4. Acute psychosis. PLAN AND RECOMMENDATIONS: Continue psychiatric intervention, continue supportive care. Continue doxycycline for 7 to 10 days. Breathing treatments as needed. Patient has component of dyslipidemia. Has been on simvastatin as well. Patient likely will require pulmonary evaluation on outpatient basis. Will set him up for that.
[2016-10-19] MEDS: traZODone HCL 50 MG TAB PO SCH ×2 (20:23→21:35)
[2016-10-19] MEDS: ATORVASTATIN 40 MG TAB PO SCH ×2 (20:23→21:35)
--- NOTE | 2016-10-19 21:02 | P.PN ---
Progress Note - Text Date of service:10/19/2016 Chief complaint: Subjective: The patient has been seen today as follow-up, chart reviewed, case discussed with the treatment team. patient was found laying down in the hallway, and he presented very disorganized, catatonic with certain position that he refused to come up and he refused to change his position. According to the prior record the patient might respond to ambulate and begin walking back ordonez and he always presented in this or gesture and walking. The patient has been compliant with medication, and no reports of a change in behavior, agitation, or manic symptoms. Objective: Vitals has been reviewed. Mental status examination: the patient is been alert but he is in very poor hygiene, poorly dressed and groomed. According to the staff the reported continue to find him inappropriately closed exposing himself. Patient couldn't answer any question to address his mood thought process, or orientation. the patient presented very bizarre in his shirt and his behavior. He appears responding to internal stimuli and internally preoccupied. He couldn't answer question about perceptual problems or hearing voices. The patient looks disoriented and he has no insight about his mental illness. Patient appears was very poor or no judgment but he continued to take his medication. Assessment: schizophrenia Plan: genuine patient level of care continue intake 9 mg daily for psychotic symptoms consider augmenting with other atypical antipsychotic medication as per her primary team including Prolixin or Haldol Blood work including CMP and CBC has been ordered Kat monitoring for safety
[2016-10-20] MEDS: DIAZEPAM 5 MG TAB PO SCH ×2 (08:30→19:57)
[2016-10-20] MEDS: PALIPERIDONE 3 MG TAB.ER.24 PO SCH (08:30)
[2016-10-20] MEDS: NICOTINE 21MG/24HR PATCH TRANSDERM SCH (08:30)
[2016-10-20] MEDS: DOXYCYCLINE 50 MG CAP PO SCH ×2 (08:30→19:57)
--- NOTE | 2016-10-20 15:42 | P.PN ---
Progress Note - Text Date of service: 10/20/2016 Chief complaint: The patient refused to talk Subjective: The patient has been seen today as follow-up, chart reviewed, case discussed with the treatment team. The patient has been seen at the hallway, as he was laying on his back on the floor and he refused to get up or talk to me. The patient was not responding to any redirection and presented the same as yesterday , disorganized, catatonic. According to the prior record the patient might respond to ambulate and begin walking. Nursing was able to get him up to eat and probably to take a shower. The patient continued to be compliant with medication, and no reports of a change in his disorganized and catatonic behavior. No agitation, and in no manic symptoms reported. Objective: Vitals has been reviewed. Mental status examination: the patient is been alert but continue to be in poor hygiene, poorly dressed and groomed. According to the staff the reported continue to find him inappropriately closed exposing himself. Patient couldn't answer any question to address his mood thought process, or orientation. the patient presented disorganized in his speech and his behavior. He appears responding to internal stimuli and internally preoccupied. He couldn't answer question about perceptual problems or hearing voices. The patient looks disoriented and he has no insight about his mental illness. Patient appears to have very poor or no judgment but he continued to take his medication. Assessment: schizophrenia Plan: genuine patient level of care continue Invega 9 mg daily for psychotic symptoms Continue Valium 5 mg by mouth twice a day for catatonic behavior consider augmenting with other atypical antipsychotic medication as per her primary team including Prolixin or Haldol Blood work including CMP and CBC has been ordered by the primary team Continue monitoring for safety
[2016-10-20] MEDS: traZODone HCL 50 MG TAB PO SCH (19:57)
[2016-10-20] MEDS: ATORVASTATIN 40 MG TAB PO SCH (19:57)
[2016-10-21] MEDS: LORazepam 2 MG/ML SYRINGE IM PRN (02:58)
[2016-10-21] MEDS ORDERED: LORazepam 2 MG/ML SYRINGE IM STA (09:01)
[2016-10-21] MEDS: DIAZEPAM 5 MG TAB PO SCH ×3 (09:10→21:06)
[2016-10-21] MEDS: NICOTINE 21MG/24HR PATCH TRANSDERM SCH (10:57)
[2016-10-21] MEDS: DOXYCYCLINE 50 MG CAP PO SCH ×2 (10:58→21:07)
[2016-10-21] MEDS: PALIPERIDONE 3 MG TAB.ER.24 PO SCH (10:58)
--- NOTE | 2016-10-21 12:45 | P.PN ---
Progress Note - Text SUBJECTIVE: I reviewed the medical record and attempted to interview Mr. Barraza. He was laying face down on the floor in the hallway. He would not respond but after much encouragement and the assistance of nursing staff stood up. In the morning, he was mute to questioning. After we administered 2 mg of lorazepam he stopped posturing. He answered questions with 1 or 2 words. He continues to gesture and at one point appeared to be mimicking masturbating himself. His answers were tangential. For example, in response to the question "how are you" he made a cryptic statement about his eyes. OBJECTIVE: He presented as a disheveled 61-year-old thin and pale male with a long unkempt abdi brandt. He did not make eye contact and did not appear to attend to my attempts to communicate with him. He had a flat facial expression. He showed marked psychomotor retardation and periods of unresponsiveness. He also has catatonic posturing. He lay on the floor twice this morning. His speech was not spontaneous. His affect was flat. His thinking was disorganized, illogical and incoherent. At times, he appears to be responding to internal stimuli. ASSESSMENT: He appeared to show a slight decrease in his catatonic posturing and was a bit more verbally responsive after receive 2 mg lorazepam IM. Overall , she is severely mentally ill and minimally improve from admission. PLAN: Continue inpatient hospitalization. Continue Invega 9 mg daily. Increase diazepam to 10 mg twice a day. Continue Lipitor 40 mg at bedtime, erythromycin 100 mg twice a day and trazodone 50 mg at bedtime. Evaluate clinical status response to treatment on daily basis.
[2016-10-21] MEDS: ATORVASTATIN 40 MG TAB PO SCH (21:06)
[2016-10-21] MEDS: traZODone HCL 50 MG TAB PO SCH (21:07)
[2016-10-22 03:27] VITALS: TEMP 97.8
[2016-10-22] MEDS ORDERED: BENZTROPINE MESYLATE 1 MG TAB PO SCH (09:30)
--- NOTE | 2016-10-22 09:36 | P.PN ---
Progress Note - Text Interval history: The patient is found in the library seated in a wheelchair at a table with his breakfast tray in front of him. The patient is holding his arms and upright flexed posture. He is able to move those on his own. He provides no relevant verbal responses to my questions this morning. Staff report that the patient continues to disrobe in public areas. He continues to demonstrate odd posturing in chairs and on the floor. For the most part he has been cooperative with medications with coaching from nursing. Mental status exam: The patient is a disheveled male he is dressed in hospital gowns he seated in a wheelchair he makes no eye contact he stares forward at the TV. He has his breakfast tray in front of him but is not eating he holds his arms up in a flexed posture. He demonstrates no spontaneous speech. He demonstrates no verbal or physical aggressiveness. He continues to demonstrate catatonic poses. He provides no verbal responses to several of my questions. Insight and judgment are poor. No tremor appreciated. Plan: The patient symptoms of psychosis have not improved over the past several days. We have tried to augment with an oral dose of invega and that medication was titrated during the course of this stay. His catatonic features have not responded to benzodiazepines. I will go ahead and initiate Cogentin 1 mg twice daily to see if that will provide benefit. I will discontinue the invega and we will initiate Haldol 2 mg twice daily. We will continue to monitor him for safety and provide reality orientation when possible and assist him with his ADLs. Vital signs reviewed. Input from internal medicine reviewed.
[2016-10-22] MEDS: PALIPERIDONE 3 MG TAB.ER.24 PO SCH (11:28)
[2016-10-22 11:43] LABS: ALT 36 U/L (21-72); AST 62 U/L (17-59); Alkaline Phosphatase 58 U/L (38-126); Anion Gap 10 mmol/L; Blood Urea Nitrogen 25 mg/dL (9-20); Calcium 9.9 mg/dL (8.4-10.2); Carbon Dioxide 32 mmol/L (22-30); Chloride 105 mmol/L (98-107); Glucose 169 mg/dL (74-99); Non-African American GFR(MDRD) >60 (>60 ml/min/1.73 sqM); Potassium 3.7 mmol/L (3.5-5.1); Sodium 147 mmol/L (137-145); Total Bilirubin 0.9 mg/dL (0.2-1.3); Total Protein 7.4 g/dL (6.3-8.2)
[2016-10-22 12:41] VITALS: BP 111/56; PULSE 97; RESP 16
[2016-10-22] MEDS ORDERED: DIAZEPAM 5 MG TAB PO SCH (12:45)
[2016-10-22] MEDS: DIAZEPAM 5 MG TAB PO SCH (13:13)
[2016-10-22] MEDS: DOXYCYCLINE 50 MG CAP PO SCH (13:14)
[2016-10-22] MEDS: NICOTINE 21MG/24HR PATCH TRANSDERM SCH (13:14)
[2016-10-22 20:19] LABS: Glucose,Whole Blood 184 mg/dL (75-99)
[2016-10-22] MEDS ORDERED: HALOPERIDOL 2 MG TAB PO SCH (21:00)
[2016-10-22 21:34] LABS: Basophils % (A) 1 %; CH 32.8; CHCM 33.4; Eosinophils % (A) 0 %; HCT 37.9 % (39.0-53.0); HDW 2.88; HGB 12.5 gm/dL (13.0-17.5); Luc # (Auto) 0.12; Luc % (Auto) 2; Lymphocytes # (A) 0.3 k/uL (1.0-4.8); Lymphocytes % (A) 4 %; MCH 32.5 pg (25.0-35.0); MCHC 32.9 g/dL (31.0-37.0); MCV 98.7 fL (80.0-100.0); Mean Platelet Volume 7.1; Monocytes # (A) 0.3 k/uL (0-1.0); Monocytes % (A) 5 %; Neutrophils # (A) 6.1 k/uL (1.3-7.7); Neutrophils % (A) 88 %; RBC 3.85 m/uL (4.30-5.90); RDW 12.2 % (11.5-15.5); WBC 6.9 k/uL (3.8-10.6); WBC (Perox) 6.92
[2016-10-22 21:47] LABS: ALT 28 U/L (21-72); AST 52 U/L (17-59); Alkaline Phosphatase 54 U/L (38-126); Anion Gap 8 mmol/L; Blood Urea Nitrogen 27 mg/dL (9-20); Calcium 9.9 mg/dL (8.4-10.2); Carbon Dioxide 33 mmol/L (22-30); Chloride 106 mmol/L (98-107); Glucose 166 mg/dL (74-99); Non-African American GFR(MDRD) >60 (>60 ml/min/1.73 sqM); Potassium 3.8 mmol/L (3.5-5.1); Sodium 147 mmol/L (137-145); Total Bilirubin 0.7 mg/dL (0.2-1.3); Total Protein 6.9 g/dL (6.3-8.2)
--- NOTE | 2016-11-01 10:02 | P.DS ---
Providers Date of admission: 10/13/16 23:09 Expected date of discharge: 10/22/16 Attending physician: Morales Peterson Consults: 10/14/16 00:31 Consult Physician Routine Consulting Provider: Ashish Card Consult Reason/Comments: H & P and medical follow up Do you want consulting provider notified?: Yes, Notify in am Primary care physician: Ashish Card - Discharge Diagnosis(es) (1) Schizophrenia Status: Acute Priority: High Hospital Course: This patient is a 61-year-old male who was admitted originally to the mental health unit with acute symptoms of psychosis. He presented with catatonic features. He is known to my outpatient practice and had decompensated in terms of his psychotic symptoms. For full details please refer to the psychiatric evaluation. Summary of hospital course: The patient was admitted to the mental health unit for treatment of his psychotic symptoms. He presented with catatonic features. We initially tried supplementing with invega orally. The patient's psychosis did not improve. He did not engage in treatment he struggled with eating and became dehydrated. The decision was made to transfer the patient to the medical floor for IV hydration and further medical workup. Mental status exam: The patient continued to demonstrate symptoms of psychosis with catatonic features. Impressions: Schizophrenia Plan: The patient was transferred to the medical floor for IV hydration and further medical workup. Patient Condition at Discharge: Serious Plan - Discharge Summary New Discharge Prescriptions: No Action Simvastatin [Zocor] 40 mg PO HS Paliperidone Palmitate [Invega Trinza] 410 mg IM Q90D Diazepam [Valium] 5 mg PO TID PRN PRN Reason: Anxiety Acetaminophen with Codeine [Tylenol w/codeine #4] 1 tab PO TID PRN PRN Reason: Pain Amoxic-Pot Clav 875-125Mg [Augmentin 875-125] 1 each PO Q12HR #14 tab Tamsulosin [Flomax] 0.4 mg PO PC-BRKFST #30 cap Acetaminophen Tab [Tylenol] 650 mg PO Q6HR PRN tab PRN Reason: for fever or pain 1-5 Haloperidol [Haldol] 2 mg PO BID tab Discharge Medication List Simvastatin [Zocor] 40 mg PO HS 02/09/16 [History] Paliperidone Palmitate [Invega Trinza] 410 mg IM Q90D 09/04/16 [History] Acetaminophen with Codeine [Tylenol w/codeine #4] 1 tab PO TID PRN 10/13/16 [ History] Diazepam [Valium] 5 mg PO TID PRN 10/13/16 [History] Acetaminophen Tab [Tylenol] 650 mg PO Q6HR PRN tab 10/31/16 [Rx] Amoxic-Pot Clav 875-125Mg [Augmentin 875-125] 1 each PO Q12HR #14 tab 10/31/16 [ Rx] Haloperidol [Haldol] 2 mg PO BID tab 10/31/16 [Rx] Tamsulosin [Flomax] 0.4 mg PO PC-BRKFST #30 cap 10/31/16 [Rx] Follow up Appointment(s)/Referral(s): Ashish Card MD [Primary Care Provider] - 1-2 days Justin Wolfe MD [STAFF PHYSICIAN] - 1 Week Discharge Disposition: TRANSFER TO SHORT TERM HOSP
== END 2016-10-22 21:47 | disposition short-term general hospital (02) | DRG 885 ==
LOC: EC 19:11 → 3MHU 23:09
PROVIDERS: ADMIT Psychiatry & Neurology Psychiatry; ATTEND Psychiatry & Neurology Psychiatry
DX: F25.9 Schizoaffective disorder, unspecified (principal); J44.0 Chronic obstructive pulmonary disease with (acute) lower respiratory infection; E78.5 Hyperlipidemia, unspecified; Z79.899 Other long term (current) drug therapy; Z85.828 Personal history of other malignant neoplasm of skin; Z87.891 Personal history of nicotine dependence; J40 Bronchitis, not specified as acute or chronic
CPT/HCPCS: 36415; 70450; 71020; 80053; 80306; 80320; 81001; 82140; 82550; 82553; 83520; 83735; 84443; 84484; 85025; 85610; 85730; 93005; 96360; 96361; 99285

== ENCOUNTER 2016-10-22 21:10 | Inpatient (IN) | payer BC ==
[2016-10-22 22:28] VITALS: BMI 21.3
[2016-10-22] MEDS ORDERED: SODIUM CHLORIDE 0.9% 500 ML IV ONE (22:45)
[2016-10-22 23:12] LABS: Appearance,Urine Clear (Clear); Bilirubin,Urine Negative (Negative); Calcium Oxalate Crystals,Urine Rare /hpf; Glucose,Urine (UA) Negative (Negative); Ketones,Urine 1+ (Negative); Leukocyte Esterase,Urine Negative (Negative); Mucus,Urine Rare /hpf; Nitrite,Urine Negative (Negative); PH, Urine 6.5 (5.0-8.0); Particle Count 1868; Protein,Urine Trace (Negative); RBC,Urine 44 /hpf (0-5); Specific Gravity,Urine 1.014 (1.001-1.035); Squamous Epithelial Cell,Urine <1 /hpf (0-4); UA Billing (MACRO vs. MICRO) MICRO; Urobilinogen,Urine <2.0 mg/dL (<2.0); WBC,Urine 9 /hpf (0-5)
[2016-10-23] MEDS: SODIUM CHLORIDE 0.9% 1,000 ML IV SCH ×4 (00:10→20:28)
--- NOTE | 2016-10-23 11:37 | P.CN ---
Psychiatric Consult - . Consult:: 10/23/16 11:30 Interval history: This patient is a 61-year-old single male who is known to my outpatient practice. He was admitted to the mental health unit for an acute exacerbation of psychosis. He presented with psychotic thinking and catatonic features. During the course of the hospitalization it appears he became dehydrated and was suffering from urinary retention. The patient is found lying in bed his arms are held up in a flexed posture. The patient's did undergo urinary catheterization. He is receiving IV fluids. He reports his mood is "fine". I did discuss his care with his current nurse and the primary medical team. Past psychiatric history: The patient has a history of numerous psychiatric admissions he has a established diagnosis of schizophrenia. He was previously treated with Invega Sustenna monthly this was recently changed to invega trinza. I work with him as an outpatient for medication management. For past medical history, income occult dependency history, family psychiatric history please refer to psychiatric evaluation. Mental status exam: The patient is a 61-year-old male he is lying in bed he is dressed in hospital attire. He has a disheveled appearance he has a very long white brandt. Eye contact is poor he appears tired but is not lethargic. He is holding his arms and a flexed posture he is able to passively extend them. He demonstrates some tremor of his right upper extremity. He is reporting no suicidal ideation. He clearly continues to experience symptoms of psychosis demonstrating catatonic features. Insight and judgment are poor. He is demonstrating no verbal or physical aggressiveness. He is oriented to being in a hospital he knows his name. Impressions 1. Schizophrenia 2. Urinary retention, rule out urinary tract infection, dehydration Plan: As of yesterday we had started to initiate Haldol 2 mg twice daily and Cogentin 1 mg twice daily. We have used scheduled benzodiazepines to try to reduce catatonic features with no success. I will continue to follow patient while medically admitted I expect he will be transferred back to the mental health unit once medically stabilized.
[2016-10-23 12:05] LABS: Basophils % (A) 0 %; CH 32.8; CHCM 33.8; Eosinophils % (A) 1 %; HCT 34.3 % (39.0-53.0); HDW 2.98; HGB 11.4 gm/dL (13.0-17.5); Luc # (Auto) 0.25; Luc % (Auto) 3; Lymphocytes % (A) 13 %; MCH 32.4 pg (25.0-35.0); MCHC 33.3 g/dL (31.0-37.0); MCV 97.3 fL (80.0-100.0); Mean Platelet Volume 7.2; Monocytes # (A) 0.4 k/uL (0-1.0); Monocytes % (A) 5 %; Neutrophils % (A) 77 %; RBC 3.52 m/uL (4.30-5.90); RDW 11.7 % (11.5-15.5); WBC 7.7 k/uL (3.8-10.6); WBC (Perox) 7.99
[2016-10-23 12:26] LABS: ALT 32 U/L (21-72); AST 42 U/L (17-59); Alkaline Phosphatase 50 U/L (38-126); Anion Gap 7 mmol/L; Blood Urea Nitrogen 19 mg/dL (9-20); Calcium 8.8 mg/dL (8.4-10.2); Carbon Dioxide 26 mmol/L (22-30); Chloride 114 mmol/L (98-107); Glucose 90 mg/dL (74-99); Non-African American GFR(MDRD) >60 (>60 ml/min/1.73 sqM); Potassium 3.6 mmol/L (3.5-5.1); Sodium 147 mmol/L (137-145); Total Bilirubin 0.9 mg/dL (0.2-1.3); Total Protein 5.9 g/dL (6.3-8.2)
[2016-10-23] MEDS: BENZTROPINE MESYLATE 1 MG TAB PO SCH ×2 (13:16→20:29)
[2016-10-23] MEDS: HALOPERIDOL 2 MG TAB PO SCH ×2 (13:16→20:29)
--- NOTE | 2016-10-23 14:05 | P.HPIM ---
History of Present Illness H&P Date: 10/23/16 Chief Complaint: A 61-year-old was seen on the mental health unit on October 22 after nursing staff activated A team which did respond to the mental health unit in a patient who was experiencing altered mental status nonverbal hypotensive in a catatonic episode. Nursing reports on the mental health unit patient had been not drinking adequately Patient was given a 500 mL fluid bolus of normal saline. Nursing also on the mental health unit indicate the patient needed to be straight cathed and indwelling Sanches catheter was inserted. Patient was transferred from the mental unit to a [facility] bed. Patient is being seen this morning on the F floor patient will open eyes to verbal stimuli only does have an indwelling Sanches catheter in. Nursing reports patient will not take a diet this morning. Does not make eye contact. Patient continues to experience symptoms of psychosis demonstrating catatonic features. This is a 61-year-old male who is known to the mental health service has a history of schizophrenia. Patient had been on the mental health unit undergoing treatment when this event occurred. Patient was recently treated with invega sustenna monthly this was recently changed by the mental health psychiatrist to invegatrinza Review of Systems is a poor historian not able to obtain information Past Medical History Past Medical History: Hyperlipidemia History of Any Multi-Drug Resistant Organisms: None Reported Past Surgical History: Orthopedic Surgery Additional Past Surgical History / Comment(s): bilateral ankles, removal of skin cancer on l [employer] Past Psychological History: Anxiety, Bipolar, Depression, Schizoaffective Disorder Smoking Status: Current some day smoker Past Alcohol Use History: None Reported Past Drug Use History: None Reported - Past Family History Father History Unknown: Yes Medications and Allergies Home Medications Medication Instructions Recorded Confirmed Type Simvastatin [Zocor] 40 mg PO HS 02/09/16 10/22/16 History Paliperidone Palmitate [Invega 410 mg IM Q90D 09/04/16 10/22/16 History Trinza] Acetaminophen with Codeine 1 tab PO TID PRN 10/13/16 10/22/16 History [Tylenol w/codeine #4] Diazepam [Valium] 5 mg PO TID PRN 10/13/16 10/22/16 History Allergies Allergy/AdvReac Type Severity Reaction Status Date / Time NSAIDS (Non-Steroidal AdvReac Nausea Verified 10/13/16 19:54 Anti-Inflamma Physical Exam Vitals: Vital Signs Temp Pulse Resp BP Pulse Ox 10/23/16 07:00 99.2 F 78 20 100/57 95 10/22/16 23:00 98.3 F 108 H 14 108/58 98 Intake and Output 10/22/16 10/23/16 10/23/16 22:59 06:59 14:59 Intake Total 0 Output Total 900 Balance -900 Intake: Oral 0 Output: Urine 900 Other: Voiding Method Indwelling Catheter Weight 65.5 kg GENERAL APPEARANCE: 61 year old male thin unkempt does not make eye contact does not follow simple commands no acute distress. VITAL SIGNS: reviewed HEENT: Head is normocephalic and atraumatic. Pupils are equal and reactive. The nares are patent. Oropharynx is clear without lesions. NECK: Supple without lymphadenopathy. Traches midline. HEART: S1, S2. Regular rate and rhythm. no murmur noted LUNGS: No crackles or wheezes are heard. on room air no cough ABDOMEN: Soft, nontender, nondistended with good bowel sounds. No peritoneal signs. No palpable organomegaly or masses. indwelling Sanches catheter in place EXTREMITIES: Normal skin color and turgor. No cyanosis, rash, ulceration, clubbing or edema. Radial pedal pulses are 2/4 bilaterally. . Results CBC & Chem 7: 10/23/16 11:47 10/23/16 11:44 Labs: Abnormal Lab Results - Last 24 Hours (Table) 10/22/16 Range/Units 20:50 Urine Protein Trace H (Negative) Urine Ketones 1+ H (Negative) Urine Blood Trace H (Negative) Urine RBC 44 H (0-5) /hpf Urine WBC 9 H (0-5) /hpf Calcium Oxalate Crystal Rare H (None) /hpf Urine Mucus Rare H (None) /hpf Microbiology - Last 24 Hours (Table) 10/22/16 20:50 Urine Culture - Preliminary Urine,Catheterized Assessment and Plan Plan: Impression Present on admission psychotic thinking with catatonic features in a patient with acute exacerbation of psychosis in a patient with history of schizophrenia Schizophrenia Present on admission clinical dehydration poor oral intake likely due to acute exacerbation of psychosis with catatonic features in a patient with schizophrenia New onset urinary retention needing to have indwelling Sanches catheter inserted Chronic nicotine dependency greater than a 20 year history History of numerous psychiatric admissions No evidence of UTI per urinalysis Present on admission hypotensive necessitating fluid bolus resuscitation suspect due to poor oral intake A recent treatment for tracheobronchitis per chest x-ray October 13 completed antibiotic course of doxycycline Plan continue recommendations by the psychiatric service defer to Continue IV fluid as ordered Resume meds as appropriate Continue recommendations from mental health service Haldol 2 mg daily with Cogentin 1 mg daily monitor the response Follow-up on chest x-ray Follow-up on pending urine culture Further recommendations pending The above dictated assessment and findings were discussed with dr jose martin Suarez and the plan of care have been dictated as directed. Debby Nixon nurse practitioner acting as a scribe for tea
--- NOTE | 2016-10-23 14:37 | XR ---
EXAMINATION TYPE: XR chest 1V portable DATE OF EXAM: 10/23/2016 COMPARISON: NONE INDICATION: Evaluate for atelectasis TECHNIQUE: Single frontal view of the chest is obtained. FINDINGS: The heart size is normal. The pulmonary vasculature is normal. The lungs are clear. IMPRESSION: 1. No acute pulmonary process.
[2016-10-23] MEDS: ATORVASTATIN 20 MG TAB PO SCH (20:29)
[2016-10-24] MEDS: SODIUM CHLORIDE 0.9% 1,000 ML IV SCH ×3 (02:30→16:26)
[2016-10-24] MEDS: HALOPERIDOL 2 MG TAB PO SCH ×2 (09:12→20:03)
[2016-10-24] MEDS: BENZTROPINE MESYLATE 1 MG TAB PO SCH ×2 (09:12→20:04)
[2016-10-24 09:30] LABS: ALT 32 U/L (21-72); AST 33 U/L (17-59); Alkaline Phosphatase 49 U/L (38-126); Anion Gap 9 mmol/L; Blood Urea Nitrogen 18 mg/dL (9-20); Calcium 8.3 mg/dL (8.4-10.2); Carbon Dioxide 23 mmol/L (22-30); Chloride 112 mmol/L (98-107); Glucose 71 mg/dL (74-99); Non-African American GFR(MDRD) >60 (>60 ml/min/1.73 sqM); Potassium 3.8 mmol/L (3.5-5.1); Sodium 144 mmol/L (137-145); Total Bilirubin 1.1 mg/dL (0.2-1.3)
--- NOTE | 2016-10-24 11:18 | P.PN ---
Progress Note - Text Interval history: The patient is found in his bed awake. The patient indicates his mood is better but is not able to describe how. He still is not able to participate in a relevant conversation. He does recognize me on approach he is aware that he is in "[facility]". Staff have indicated that he has not been eating or drinking he remains on IV fluids. He has been compliant with medications. He states that he did eat this morning. Mental status exam: The patient is alert he is lying in bed he holds his upper extremities and a flexed position but is able to lower them. Eye contact is poor. Speech is nonspontaneous brief and soft. He continues to appear impaired with psychosis. Thought process is not well organized. He demonstrates some tangential thinking or loose associations with brief speech. Insight and judgment are poor. He demonstrates no verbal or physical aggressiveness. He is not reliably answering questions regarding hallucinations or specific delusions. Plan: The patient will continue on the Haldol 2 mg twice daily Cogentin 1 mg twice daily. Vital signs reviewed recent lab values reviewed. I did speak with the patient's nurse for today regarding overnight behavior. We will continue to follow patient while medically admitted. At this point our concern is his lack of by mouth intake.
--- NOTE | 2016-10-24 13:32 | P.PN ---
Subjective 61-year-old male being seen and examined this morning. Currently is more awake more alert as feeding self. Patient reportedly has been cooperative according to nursing staff. Patient makes eye contact but does not consistently follow simple commands. Nursing reports patient has not been demonstrating any physical or verbal aggressiveness. Patient has had episodes of confusion has been pulling on his Sanches catheter and pulled his IV out. Nursing reports the patient will drink water but is hesitant to eat Objective - Vital Signs Vital signs: Vital Signs Temp 99.2 F 10/24/16 07:00 Pulse 78 10/24/16 07:00 Resp 16 10/24/16 07:00 BP 99/58 10/24/16 07:00 Pulse Ox 96 10/24/16 07:00 Intake & Output 10/23/16 10/24/16 10/24/16 18:59 06:59 18:59 Intake Total 1200 100 Output Total 650 950 Balance 550 -850 Intake: IV 1200 Sodium Chloride 0.9% 1, 1200 000 ml @ 150 mls/hr IV . Q6H40M [facility] Rx#:[id number] Oral 100 Output: Urine 650 950 Other: Voiding Method Indwelling Catheter Indwelling Catheter Indwelling Catheter - Exam Physical exam 61-year-old male sitting up in bed drinking water. Is more awake more alert. Does not make eye contact. Lungs essentially clear with adequate air movement currently on room air sats are 96% Heart S1-S2 audible regular no murmur noted Abdomen soft nontender indwelling Sanches catheter in place lillie urine Extremities no edema noted - Labs CBC & Chem 7: 10/23/16 11:47 10/24/16 08:42 Labs: Abnormal Lab Results - Last 24 Hours (Table) 10/24/16 Range/Units 08:42 Chloride 112 H (98-107) mmol/L Creatinine 0.54 L (0.66-1.25) mg/dL Glucose 71 L (74-99) mg/dL Calcium 8.3 L (8.4-10.2) mg/dL Total Protein 6.0 L (6.3-8.2) g/dL Albumin 3.4 L (3.5-5.0) g/dL Microbiology - Last 24 Hours (Table) 10/22/16 20:50 Urine Culture - Preliminary Urine,Catheterized Assessment and Plan Plan: Impression Present on admission psychotic thinking with catatonic features in a patient with acute exacerbation of psychosis in a patient with history of schizophrenia Schizophrenia Present on admission clinical dehydration poor oral intake likely due to acute exacerbation of psychosis with catatonic features in a patient with schizophrenia New onset urinary retention needing to have indwelling Sanches catheter inserted Chronic nicotine dependency greater than a 20 year history History of numerous psychiatric admissions No evidence of UTI per urinalysis Present on admission hypotensive necessitating fluid bolus resuscitation suspect due to poor oral intake A recent treatment for tracheobronchitis per chest x-ray October 13 completed antibiotic course of doxycycline Plan continue recommendations by the psychiatric service defer to Continue IV fluid as ordered Resume meds as appropriate Continue recommendations from mental health service Haldol 2 mg daily with Cogentin 1 mg daily monitor the response Follow-up on chest x-ray Follow-up on pending urine culture Further recommendations pending The above dictated assessment and findings were discussed with dr jose martin Suarez and the plan of care have been dictated as directed. Debby Nixon nurse practitioner acting as a scribe for tea
--- NOTE | 2016-10-24 15:30 | XR ---
EXAMINATION TYPE: XR chest 1V portable DATE OF EXAM: 10/24/2016 COMPARISON: Prior chest x-ray 10/23/2016 HISTORY: Pneumonia TECHNIQUE: Single frontal view of the chest is obtained. FINDINGS: There is no pleural effusion, or pneumothorax seen. Airspace disease is present at the rig ht costophrenic angle level. Patient is rotated. There are overlying cardiac leads. The cardiac silh ouette size is within normal limits. The osseous structures are intact. IMPRESSION: Right lower lobe pneumonia, correlate.
[2016-10-24] MEDS: Acetaminophen-Codeine 300-30mg TAB PO PRN (16:25)
[2016-10-24 16:50] LABS: Basophils % (A) 0 %; CHCM 34.7; Eosinophils % (A) 0 %; HCT 35.1 % (39.0-53.0); HDW 3.04; HGB 12.1 gm/dL (13.0-17.5); Luc % (Auto) 2; Lymphocytes # (A) 0.4 k/uL (1.0-4.8); Lymphocytes % (A) 5 %; MCH 32.9 pg (25.0-35.0); MCHC 34.4 g/dL (31.0-37.0); MCV 95.4 fL (80.0-100.0); Mean Platelet Volume 7.1; Monocytes # (A) 0.4 k/uL (0-1.0); Monocytes % (A) 5 %; Neutrophils # (A) 7.3 k/uL (1.3-7.7); Neutrophils % (A) 87 %; RBC 3.68 m/uL (4.30-5.90); RDW 11.5 % (11.5-15.5); WBC 8.3 k/uL (3.8-10.6); WBC (Perox) 8.98
--- NOTE | 2016-10-24 17:37 | PN ---
DATE OF SERVICE: 10/24/2016 CHIEF COMPLAINT: Catatonia. HISTORY OF PRESENT ILLNESS: This gentleman was a little bit more awake and alert. He was apparently admitted when he became motionless and unresponsive on the psych unit. PHYSICAL EXAMINATION: VITAL SIGNS: Hydration is adequate. Chest is clear. CARDIAC: Normal. ABDOMEN: Soft, nontender. IMPRESSION: 1. Catatonia. 2. Schizophrenia. PLAN: Possibly back to the psych service today.
--- NOTE | 2016-10-24 17:45 | HP ---
DATE OF ADMISSION: 10/22/2016 CHIEF COMPLAINT: Unresponsiveness. HISTORY OF PRESENT ILLNESS: This is another admission for this 61-year-old male. He is on the psych floor when he was found to be unresponsive and "comatose". Vital signs are normal. It was difficult to tell if this was due to a medical issues or psychiatric one. He was moved to the medical floor. REVIEW OF SYSTEMS: Not obtainable. Past medical history, family history and personal and social histories are all detailed in his admitting. He has a long standing history of psychiatric issues, which had been poorly controlled. He also has a propensity for angiolytics and analgesics. PHYSICAL EXAMINATION: VITAL SIGNS: Blood pressure 142/74 with a pulse of 70, respirations 15 and he is afebrile. GENERAL: Appeared to be in no acute distress. He was not easily aroused. HEENT: Head, ears, eyes, nose, mouth, and throat were normal. CHEST: Clear. CARDIAC: Normal. ABDOMEN: Soft, nontender. He had no focal neurologic deficits. He is admitted to the diagnoses: 1. Mental status changes, coma and lethargy. 2. Possible catatonia. 3. Schizophrenia. PLAN: 1. Bed rest. 2. IV fluids. 3. Appropriate laboratory studies. 4. Frequent monitoring of his neurologic status and vital signs.
--- NOTE | 2016-10-24 18:16 | PN ---
DATE OF SERVICE: 10/23/2016 CHIEF COMPLAINT: Catatonia. HISTORY OF PRESENT ILLNESS: This gentleman is doing a little bit better. He is starting to move a bit more and there have been no other abnormalities identified. IMPRESSION: 1. Catatonia. 2. Schizophrenia. PLAN: No change in program.
[2016-10-24] MEDS: ATORVASTATIN 20 MG TAB PO SCH (20:03)
[2016-10-24] MEDS: ACETAMINOPHEN TAB 325 MG TAB PO PRN (22:54)
[2016-10-25] MEDS: SODIUM CHLORIDE 0.9% 1,000 ML IV SCH ×3 (00:17→22:40)
[2016-10-25] MEDS: HALOPERIDOL 2 MG TAB PO SCH ×2 (07:42→20:54)
[2016-10-25] MEDS: BENZTROPINE MESYLATE 1 MG TAB PO SCH ×2 (07:42→20:54)
[2016-10-25 09:51] LABS: Basophils % (A) 0 %; CH 32.5; CHCM 33.4; Eosinophils # (A) 0.1 k/uL (0-0.7); Eosinophils % (A) 1 %; HCT 34.1 % (39.0-53.0); HDW 2.92; HGB 11.3 gm/dL (13.0-17.5); Luc # (Auto) 0.18; Luc % (Auto) 2; Lymphocytes # (A) 0.9 k/uL (1.0-4.8); Lymphocytes % (A) 11 %; MCH 32.2 pg (25.0-35.0); MCV 97.6 fL (80.0-100.0); Mean Platelet Volume 7.1; Monocytes # (A) 0.4 k/uL (0-1.0); Monocytes % (A) 5 %; Neutrophils # (A) 6.8 k/uL (1.3-7.7); Neutrophils % (A) 81 %; RBC 3.49 m/uL (4.30-5.90); RDW 11.8 % (11.5-15.5); WBC 8.4 k/uL (3.8-10.6); WBC (Perox) 8.23
[2016-10-25 10:03] LABS: ALT 24 U/L (21-72); AST 22 U/L (17-59); Alkaline Phosphatase 51 U/L (38-126); Anion Gap 8 mmol/L; Blood Urea Nitrogen 20 mg/dL (9-20); Calcium 8.2 mg/dL (8.4-10.2); Carbon Dioxide 23 mmol/L (22-30); Chloride 113 mmol/L (98-107); Glucose 91 mg/dL (74-99); Non-African American GFR(MDRD) >60 (>60 ml/min/1.73 sqM); Potassium 3.6 mmol/L (3.5-5.1); Sodium 144 mmol/L (137-145); Total Bilirubin 0.8 mg/dL (0.2-1.3); Total Protein 5.5 g/dL (6.3-8.2)
--- NOTE | 2016-10-25 11:05 | P.PN ---
Progress Note - Text Interval history: The patient is found seated upright in bed. He is alert. He reports that his mood is sad. Again there is an element of confusion and he does not provide consistent answers to questions asked. Vital signs reviewed labs reviewed a recent chest x-ray suggests a right lower lobe pneumonia possibly secondary to aspiration. I did speak with the primary medical team antibiotics have been prescribed they will consult pulmonology. Mental status exam: The patient continues to have a disheveled appearance impaired hygiene he seated upright in bed he is dressed in hospital attire. He maintains eye contact only briefly then looks away. He demonstrates continued psychomotor slowing. He is oriented to being at "[facility]" he is able to identify the correct month and year. There are significant delays in providing responses to questions asked however. He provides different responses in describing his mood. He demonstrates no aggressive behavior. Insight and judgment are poor. He struggles with answering questions related to screening for symptoms of psychosis. Assessment plan: Schizophrenia, rule out delirium The patient will continue on the Haldol and Cogentin as prescribed. We will continue to follow him while medically admitted.
[2016-10-25] MEDS: IPRATROPIUM-ALBUTEROL 3 ML NEB INHALATION SCH ×4 (11:22→23:38)
--- NOTE | 2016-10-25 11:46 | P.PN ---
Subjective 61-year-old male being seen this morning currently is more awake and alert. Patient's been pleasant and cooperative nursing states patient's been taking his medication and will take his diet does need encouragement. Patient is being followed by the mental health service. Patients being treated for schizophrenia rule out delirium. did note the patient did have a temp of 100 at 2 in the morning. currently temp 97.7 yesterday afternoon at 3:00 the temp was 101.2. a chest x-ray was obtained on the first october it did show right lower lobe pneumonia. white counts morning is down to 8.4. and the urinalysis is negative. Patient has been started on IV antibiotics to cover the right lobe pneumonia. Pulmonary consultation is also been requested Objective - Vital Signs Vital signs: Vital Signs Temp 98.7 F 10/25/16 07:00 Pulse 77 10/25/16 11:23 Resp 16 10/25/16 07:00 BP 102/60 10/25/16 07:00 Pulse Ox 94 L 10/25/16 07:00 Intake & Output 10/24/16 10/25/16 10/25/16 18:59 06:59 18:59 Output Total 450 350 Balance -450 -350 Output: Urine 450 350 Other: Voiding Method Indwelling Catheter # Voids 0 - Exam Physical exam 61-year-old male sitting up in bed drinking water. Is more awake more alert. patient is verbalizing more this morning is able to identify the place he said Lungs essentially clear with adequate air movement currently on room air sats are 96% Heart S1-S2 audible regular no murmur noted Abdomen soft nontender indwelling Sanches catheter in place lillie urine Extremities no edema noted - Labs CBC & Chem 7: 10/25/16 08:50 10/25/16 08:50 Labs: Abnormal Lab Results - Last 24 Hours (Table) 10/24/16 10/25/16 10/25/16 Range/Units 16:14 08:50 08:50 RBC 3.68 L 3.49 L (4.30-5.90) m/uL Hgb 12.1 L 11.3 L (13.0-17.5) gm/dL Hct 35.1 L 34.1 L (39.0-53.0) % Plt Count 145 L (150-450) k/uL Lymphocytes # 0.4 L 0.9 L (1.0-4.8) k/uL Chloride 113 H (98-107) mmol/L Creatinine 0.57 L (0.66-1.25) mg/dL Calcium 8.2 L (8.4-10.2) mg/dL Total Protein 5.5 L (6.3-8.2) g/dL Albumin 3.0 L (3.5-5.0) g/dL Microbiology - Last 24 Hours (Table) 10/22/16 20:50 Urine Culture - Final Urine,Catheterized Assessment and Plan Plan: Impression Present on admission psychotic thinking with catatonic features in a patient with acute exacerbation of psychosis in a patient with history of schizophrenia Schizophrenia Present on admission clinical dehydration poor oral intake likely due to acute exacerbation of psychosis with catatonic features in a patient with schizophrenia New onset urinary retention needing to have indwelling Sanches catheter inserted Chronic nicotine dependency greater than a 20 year history History of numerous psychiatric admissions No evidence of UTI per urinalysis Present on admission hypotensive necessitating fluid bolus resuscitation suspect due to poor oral intake A recent treatment for tracheobronchitis per chest x-ray October 13 completed antibiotic course of doxycycline Plan continue recommendations by the psychiatric service defer to Resume meds as appropriate Continue recommendations from mental health service Haldol 2 mg daily with Cogentin 1 mg daily monitor the response start IV antibiotics Rocephin and Zithromax Pulmonary consultation requested Continue IV fluid as ordered Further recommendations pending The above dictated assessment and findings were discussed with dr jose martin Suarez and the plan of care have been dictated as directed. Debby Nixon nurse practitioner acting as a scribe for tea
--- NOTE | 2016-10-25 13:08 | P.CNPUL ---
History of Present Illness Consult date: 10/25/16 Reason for consult: pneumonia Chief complaint: Pneumonia History of present illness: This is a 61-year-old male who was transferred from the mental health unit to the inpatient unit. The patient apparently had fevers and was obtunded. A chest x-ray was obtained and shows a right lower lobe infiltrate. The patient states he does smoke. According to the medical record he smokes about 2 packs per day. He does have schizophrenia and further history is difficult to obtain. The patient did have documented fevers over the last 24 hours. The patient's T-max is 101.2. Review of Systems All systems: negative Past Medical History Past Medical History: Hyperlipidemia History of Any Multi-Drug Resistant Organisms: None Reported Past Surgical History: Orthopedic Surgery Additional Past Surgical History / Comment(s): bilateral ankles, removal of skin cancer on l [employer] Past Psychological History: Anxiety, Bipolar, Depression, Schizoaffective Disorder Smoking Status: Current some day smoker Past Alcohol Use History: None Reported Past Drug Use History: None Reported - Past Family History Father History Unknown: Yes Medications and Allergies Home Medications Medication Instructions Recorded Confirmed Type Simvastatin [Zocor] 40 mg PO HS 02/09/16 10/22/16 History Paliperidone Palmitate [Invega 410 mg IM Q90D 09/04/16 10/22/16 History Trinza] Acetaminophen with Codeine 1 tab PO TID PRN 10/13/16 10/22/16 History [Tylenol w/codeine #4] Diazepam [Valium] 5 mg PO TID PRN 10/13/16 10/22/16 History Allergies Allergy/AdvReac Type Severity Reaction Status Date / Time NSAIDS (Non-Steroidal AdvReac Nausea Verified 10/13/16 19:54 Anti-Inflamma Physical Exam Osteopathic Statement: *. No significant issues noted on an osteopathic structural exam other than those noted in the History and Physical/Consult. Vitals: Vital Signs Temp Pulse Pulse Resp BP Pulse Ox 10/25/16 11:35 76 10/25/16 11:23 77 10/25/16 07:00 98.7 F 77 16 102/60 94 L 10/25/16 02:23 100 F H 10/24/16 23:00 100.6 F H 75 17 88/50 94 L 10/24/16 20:02 97.5 F L 10/24/16 15:00 101.2 F H 92 16 103/53 94 L Intake and Output 10/24/16 10/25/16 10/25/16 22:59 06:59 14:59 Output Total 350 Balance -350 Output: Urine 350 Other: # Voids 1 0 Gen.: Patient is alert, oriented to place Cardiovascular: Regular rate and rhythm, S1/S2 Lungs: Coarse breath sounds bilaterally Abdomen: Soft nontender nondistended positive bowel sounds Extremities: No edema Results - Laboratory Findings CBC and BMP: 10/25/16 08:50 10/25/16 08:50 Abnormal lab findings: Abnormal Labs 10/22/16 10/23/16 10/23/16 20:50 11:44 11:47 RBC 3.52 L Hgb 11.4 L Hct 34.3 L Plt Count Lymphocytes # Sodium 147 H Chloride 114 H Creatinine 0.60 L Glucose Calcium Total Protein 5.9 L Albumin Urine Protein Trace H Urine Ketones 1+ H Urine Blood Trace H Urine RBC 44 H Urine WBC 9 H Calcium Oxalate Crystal Rare H Urine Mucus Rare H 10/24/16 10/24/16 10/25/16 08:42 16:14 08:50 RBC 3.68 L 3.49 L Hgb 12.1 L 11.3 L Hct 35.1 L 34.1 L Plt Count 145 L Lymphocytes # 0.4 L 0.9 L Sodium Chloride 112 H Creatinine 0.54 L Glucose 71 L Calcium 8.3 L Total Protein 6.0 L Albumin 3.4 L Urine Protein Urine Ketones Urine Blood Urine RBC Urine WBC Calcium Oxalate Crystal Urine Mucus 10/25/16 08:50 RBC Hgb Hct Plt Count Lymphocytes # Sodium Chloride 113 H Creatinine 0.57 L Glucose Calcium 8.2 L Total Protein 5.5 L Albumin 3.0 L Urine Protein Urine Ketones Urine Blood Urine RBC Urine WBC Calcium Oxalate Crystal Urine Mucus - Diagnostic Findings Chest x-ray: report reviewed, image reviewed Assessment and Plan Plan: Acute right lower lobe pneumonia, possible aspiration Pyrexia, 1 out of 4 SIRS Toxic metabolic encephalopathy Schizophrenia Anemia Mild thrombocytopenia Acute psychosis Dehydration Urinary retention Active tobacco abuse O2 to maintain saturation greater than or equal to 88%, patient currently on room air IV antibiotics Avoid systemic steroids Duo nebs Pulmicort Sputum culture Serial chest x-rays Psychiatric recommendations IV fluids Encourage enteral nutrition Consult dietitian and speech therapy Smoking cessation is recommended GI and DVT prophylaxis Thank you for this consultation we'll continue to follow along
[2016-10-25] MEDS: AZITHROMYCIN 500 MG in SODIUM CHLORIDE 0.9% 250 ML IVPB SCH (15:35)
--- NOTE | 2016-10-25 16:35 | CONS ---
DATE OF CONSULTATION: 10/25/2016 REASON FOR CONSULTATION: Fever and antibiotic recommendation. HISTORY OF PRESENT ILLNESS: The patient is a 61-year-old male with past medical history significant for schizophrenia, rule out delirium. Patient apparently has been on mental health services; however, he has been transferred to the medical unit for treatment of underlying acute fever of 101.2 degrees Fahrenheit. Patient did have a chest x-ray obtained which was reported to be negative. Another chest x-ray obtained yesterday did show evidence of right lower lobe pneumonia. Patient was started on Rocephin and azithromycin. ID was consulted for further recommendations regarding antibiotic therapy. The R.N. who is taking care of this patient did mention that the patient did not have any difficulty swallowing and no choking has been noticed, and apparently the patient did have a swallow evaluation completed while on the mental health unit that was reported to be negative for any aspiration. Patient overall feels better and has improved. Patient did have a UA that was negative. Patient is not a very good historian, so most of the information has been obtained from review of the chart and talking to the nursing staff. Review of systems could not be reliably obtained, but the positive findings have been mentioned in the HPI. Spot. His past medical history is significant for: 1. Schizoaffective disorder. 2. Depression. 3. Bipolar. 4. Anxiety. 5. Hyperlipidemia. PAST SURGICAL HISTORY: 1. Bilateral ankle surgery. 2. Removal of skin cancer from the left alevism. SOCIAL HISTORY: The patient is a current everyday smoker; smokes about a pack a day. No drinking or any drug use. FAMILY HISTORY: No pertinent findings were noticed. ALLERGIES: NON-STEROIDAL ANTI-INFLAMMATORY MEDICATION. Medications currently include: 1. Tylenol. 2. DuoNeb. 3. Lipitor. 4. Azithromycin. 5. Cogentin. 6. Pulmicort. 7. Rocephin. 8. Valium. 9. Haldol. On examination, blood pressure is 102/60 with a pulse of 77, temperature 98.7. He is 94% on room air. General description is a middle-aged male lying in bed in no distress. No tachypnea or accessory muscle of respiration use. HEENT examination shows no pallor or scleral icterus. Oral cavity could not be examined; patient wouldn't open his oral cavity. NECK: Examination limited because of the patient's . LUNGS: Unlabored breathing with decreased breath sounds at the bases. No wheeze. HEART: S1, S2. Regular rate and rhythm. ABDOMEN: Soft. No tenderness. No guarding or rigidity. EXTREMITIES: No edema of feet. SKIN EXAMINATION: No rash or mass palpable. NEUROLOGICAL: Patient is awake and alert; however, he is not communicative; hence orientation and mood and affect could not be determined. LABS: Hemoglobin 11.3, white count 8.4. BUN of 20, creatinine 0.57. Electrolytes have been normal. Urine has been negative. Blood cultures were obtained which are currently pending. Chest x-ray report as mentioned above. DIAGNOSTIC IMPRESSION AND PLAN: Patient with an acute fever of 101 degrees Fahrenheit. Source is likely right lower lobe pneumonia with a question of possible community-acquired pathogen. Underlying aspiration could not be entirely excluded; however, the R.N. did mention that patient is able to eat and drink without any choking or coughing. Apparently he did have a swallow evaluation that was reported to be negative. Unfortunately I was unable to obtain the report of the same. In view of overall improvement continue Rocephin and azithromycin , same antibiotic for now with careful observation during feeding to make sure the patient does not have any problem with aspiration. PLAN: 1. Rocephin 1 gram IV piggyback daily. Continue with azithromycin. 2. Obtain sputum for Gram stain and culture and sensitivity. 3. Will follow up on the clinical condition and cultures to further adjust medication if needed. Thank you for this consultation. Will follow this patient along with you. SETH
[2016-10-25] MEDS: BUDESONIDE 0.5 MG/2 ML NEBU INHALATION SCH (19:45)
[2016-10-25] MEDS: ATORVASTATIN 20 MG TAB PO SCH (20:54)
--- NOTE | 2016-10-25 21:04 | PN ---
DATE OF SERVICE: 10/25/2016 CHIEF COMPLAINT: Catatonia. HISTORY OF PRESENT ILLNESS: This gentleman is doing well and was to go back to the psych floor yesterday, but then he spiked a temperature. He is not coughing or complaining of any urinary difficulties. Appropriate cultures were obtained along with an x-ray. He did have a Sanches catheter and it has just been removed. PHYSICAL EXAMINATION: CHEST: Clear. CARDIAC: Normal. ABDOMEN: Soft and nontender. Neurologically he is a little bit more alert and active. IMPRESSION: 1. Catatonia. 2. Fever of unknown origin. 3. Probable aspiration pneumonia or urinary tract infection. PLAN: Await cultures and continue with IV fluids and monitoring.
[2016-10-26] MEDS: ACETAMINOPHEN TAB 325 MG TAB PO PRN ×2 (01:07→17:39)
[2016-10-26] MEDS: SODIUM CHLORIDE 0.9% 1,000 ML IV SCH ×2 (01:47→17:59)
[2016-10-26] MEDS: IPRATROPIUM-ALBUTEROL 3 ML NEB INHALATION SCH ×6 (03:29→23:32)
[2016-10-26] MEDS: BUDESONIDE 0.5 MG/2 ML NEBU INHALATION SCH ×2 (08:23→18:36)
[2016-10-26 08:44] LABS: Basophils % (A) 0 %; CH 32.7; Eosinophils # (A) 0.1 k/uL (0-0.7); Eosinophils % (A) 1 %; HCT 31.6 % (39.0-53.0); HDW 2.99; HGB 10.5 gm/dL (13.0-17.5); Luc # (Auto) 0.19; Luc % (Auto) 3; Lymphocytes % (A) 14 %; MCH 32.2 pg (25.0-35.0); MCHC 33.3 g/dL (31.0-37.0); MCV 96.8 fL (80.0-100.0); Monocytes # (A) 0.5 k/uL (0-1.0); Monocytes % (A) 7 %; Neutrophils # (A) 4.9 k/uL (1.3-7.7); Neutrophils % (A) 74 %; RBC 3.26 m/uL (4.30-5.90); RDW 11.9 % (11.5-15.5); WBC 6.6 k/uL (3.8-10.6)
[2016-10-26 09:01] LABS: ALT 25 U/L (21-72); AST 19 U/L (17-59); Alkaline Phosphatase 46 U/L (38-126); Anion Gap 8 mmol/L; Blood Urea Nitrogen 11 mg/dL (9-20); Calcium 7.9 mg/dL (8.4-10.2); Carbon Dioxide 23 mmol/L (22-30); Chloride 110 mmol/L (98-107); Glucose 91 mg/dL (74-99); Non-African American GFR(MDRD) >60 (>60 ml/min/1.73 sqM); Potassium 3.3 mmol/L (3.5-5.1); Sodium 141 mmol/L (137-145); Total Bilirubin 0.5 mg/dL (0.2-1.3); Total Protein 4.9 g/dL (6.3-8.2)
[2016-10-26] MEDS: HALOPERIDOL 2 MG TAB PO SCH ×2 (09:21→20:07)
[2016-10-26] MEDS: BENZTROPINE MESYLATE 1 MG TAB PO SCH ×2 (09:21→20:07)
[2016-10-26] MEDS: AZITHROMYCIN 500 MG in SODIUM CHLORIDE 0.9% 250 ML IVPB SCH (10:00)
--- NOTE | 2016-10-26 16:10 | PN ---
He feels quite weak. He has some mild shortness of breath. On physical examination his blood pressure 105/62, respiratory rate of 20, pulse rate of 68, temperature 97.3. HEENT is unremarkable. Chest reveals prolonged expiration, no clear wheeze. Cardiovascular system reveals S1 and S2. Abdomen is soft. There is no edema. Labs were reviewed. IMPRESSION: 1. Aspiration-type pneumonia, possibly secondary to metabolic encephalopathy and history of schizophrenia. 2. Active psychosis. 3. Medical debility. Continue IV antibiotics, bronchodilators, aerosolized steroids. Increase his activity level. His prognosis is guarded.
[2016-10-26] MEDS: ATORVASTATIN 20 MG TAB PO SCH (20:07)
--- NOTE | 2016-10-26 22:50 | PN ---
CHIEF COMPLAINT: Catatonia. HISTORY OF PRESENT ILLNESS: This gentleman is doing well and he has not had a temp over the last 24 hours. PHYSICAL EXAM: Chest is clear and cardiac is normal. ABDOMEN: Soft, nontender. IMPRESSION: 1. Catatonia. 2. Fever of unknown origin. 3. Probable aspiration pneumonia. 4. Schizophrenia. PLAN: Continue to treat pneumonia.
[2016-10-27] MEDS: IPRATROPIUM-ALBUTEROL 3 ML NEB INHALATION SCH ×5 (03:26→20:05)
[2016-10-27] MEDS: SODIUM CHLORIDE 0.9% 1,000 ML IV SCH ×2 (03:36→16:10)
[2016-10-27] MEDS: BUDESONIDE 0.5 MG/2 ML NEBU INHALATION SCH ×2 (07:16→20:05)
[2016-10-27 08:06] LABS: Basophils % (A) 0 %; CH 32.9; CHCM 35.4; Eosinophils # (A) 0.1 k/uL (0-0.7); Eosinophils % (A) 1 %; HCT 31.4 % (39.0-53.0); HDW 3.19; HGB 10.9 gm/dL (13.0-17.5); Luc # (Auto) 0.17; Luc % (Auto) 2; Lymphocytes # (A) 0.8 k/uL (1.0-4.8); Lymphocytes % (A) 10 %; MCH 32.3 pg (25.0-35.0); MCHC 34.7 g/dL (31.0-37.0); MCV 93.1 fL (80.0-100.0); Mean Platelet Volume 7.4; Monocytes # (A) 0.3 k/uL (0-1.0); Monocytes % (A) 4 %; Neutrophils % (A) 82 %; RBC 3.37 m/uL (4.30-5.90); RDW 11.4 % (11.5-15.5); WBC 7.3 k/uL (3.8-10.6); WBC (Perox) 8.06
[2016-10-27 08:14] LABS: ALT 29 U/L (21-72); AST 19 U/L (17-59); Alkaline Phosphatase 51 U/L (38-126); Anion Gap 8 mmol/L; Blood Urea Nitrogen 11 mg/dL (9-20); Calcium 8.1 mg/dL (8.4-10.2); Carbon Dioxide 24 mmol/L (22-30); Chloride 109 mmol/L (98-107); Glucose 108 mg/dL (74-99); Non-African American GFR(MDRD) >60 (>60 ml/min/1.73 sqM); Potassium 3.5 mmol/L (3.5-5.1); Sodium 141 mmol/L (137-145); Total Bilirubin 0.3 mg/dL (0.2-1.3); Total Protein 4.8 g/dL (6.3-8.2)
[2016-10-27] MEDS: BENZTROPINE MESYLATE 1 MG TAB PO SCH ×2 (08:22→20:27)
[2016-10-27] MEDS: Acetaminophen-Codeine 300-30mg TAB PO PRN ×2 (08:39→20:30)
[2016-10-27] MEDS: HALOPERIDOL 2 MG TAB PO SCH ×3 (08:43→20:27)
[2016-10-27] MEDS: AZITHROMYCIN 500 MG in SODIUM CHLORIDE 0.9% 250 ML IVPB SCH (10:16)
--- NOTE | 2016-10-27 19:08 | PN ---
DATE OF SERVICE: 10/27/2016. He has been hemodynamically stable. He is not short of breath. His blood pressure is 102/60, respiratory rate 24, pulse is 74, temperature 98.8, O2 sat on room air is 94%. HEENT is unremarkable. Chest reveals decreased breath sounds. Cardiovascular S1 and S2. ABDOMEN: Soft. There is no edema. IMPRESSION: 1. Aspiration-type pneumonia. 2. Psychosis. 3. Medical debility. Increase his activity level. His prognosis at time is fair.
[2016-10-27] MEDS: ATORVASTATIN 20 MG TAB PO SCH (20:27)
[2016-10-27] MEDS ORDERED: IPRATROPIUM-ALBUTEROL 3 ML NEB INHALATION PRN (20:53)
[2016-10-28] MEDS: SODIUM CHLORIDE 0.9% 1,000 ML IV SCH ×2 (00:17→11:54)
[2016-10-28] MEDS: BUDESONIDE 0.5 MG/2 ML NEBU INHALATION SCH (07:24)
[2016-10-28 07:59] LABS: Basophils % (A) 0 %; CH 32.6; CHCM 34.1; Eosinophils # (A) 0.1 k/uL (0-0.7); Eosinophils % (A) 2 %; HCT 31.1 % (39.0-53.0); HDW 3.04; HGB 10.5 gm/dL (13.0-17.5); Luc # (Auto) 0.17; Luc % (Auto) 3; Lymphocytes % (A) 17 %; MCH 32.4 pg (25.0-35.0); MCHC 33.9 g/dL (31.0-37.0); MCV 95.8 fL (80.0-100.0); Mean Platelet Volume 7.2; Monocytes # (A) 0.5 k/uL (0-1.0); Monocytes % (A) 8 %; Neutrophils # (A) 4.3 k/uL (1.3-7.7); Neutrophils % (A) 71 %; RBC 3.25 m/uL (4.30-5.90); RDW 11.8 % (11.5-15.5); WBC (Perox) 6.32
[2016-10-28] MEDS ORDERED: IPRATROPIUM-ALBUTEROL 3 ML NEB INHALATION SCH (08:00)
--- NOTE | 2016-10-28 08:08 | PN ---
DATE OF SERVICE: 10/27/2016 Reason for followup is pneumonia. INTERVAL HISTORY: The patient is afebrile. He is more awake, alert. Breathing comfortably. Denies significant chest pain. Occasional cough. No abdominal pain. No vomiting has been noticed. No diarrhea. On examination, blood pressure is 115/68 with a pulse of 71, temperature 97.3. He is 96% on room air. General description is a middle-age male up in the bed in no distress. RESPIRATORY SYSTEM: Unlabored breathing, some decreased breath sounds at the bases. No wheeze. HEART: S1, S2. Regular rate and rhythm. ABDOMEN: Soft. No tenderness. LABS: Hemoglobin is 10.9, white count 7.3 with a BUN of 11, creatinine 0.50. DIAGNOSTIC IMPRESSION AND PLAN: Patient with right lower lobe pneumonia more likely community acquired. The patient did show overall improvement on the Rocephin and Zithromax. Blood culture so far negative. The patient continues to improve. Hopefully finish therapy with p.o. Ceftin. Continue supportive care. [facility]ERShel[facility]
[2016-10-28 08:42] LABS: ALT 28 U/L (21-72); AST 23 U/L (17-59); Alkaline Phosphatase 50 U/L (38-126); Anion Gap 6 mmol/L; Blood Urea Nitrogen 8 mg/dL (9-20); Calcium 8.1 mg/dL (8.4-10.2); Carbon Dioxide 27 mmol/L (22-30); Chloride 109 mmol/L (98-107); Glucose 88 mg/dL (74-99); Non-African American GFR(MDRD) >60 (>60 ml/min/1.73 sqM); Potassium 3.4 mmol/L (3.5-5.1); Sodium 142 mmol/L (137-145); Total Bilirubin 0.6 mg/dL (0.2-1.3); Total Protein 5.2 g/dL (6.3-8.2)
[2016-10-28] MEDS: BENZTROPINE MESYLATE 1 MG TAB PO SCH ×2 (08:53→21:30)
[2016-10-28] MEDS: HALOPERIDOL 2 MG TAB PO SCH ×2 (08:53→21:30)
[2016-10-28] MEDS: Acetaminophen-Codeine 300-30mg TAB PO PRN ×2 (09:03→17:46)
[2016-10-28] MEDS: AZITHROMYCIN 500 MG in SODIUM CHLORIDE 0.9% 250 ML IVPB SCH (09:39)
--- NOTE | 2016-10-28 09:57 | P.PN ---
Subjective 61-year-old male seen and evaluated this morning's increasingly more awake and alert make eye contact will verbalize answering questions appropriately currently is taking a diet feeding self. Patient has been experiencing urinary retention. Nursing reports bladder scan showed greater than 900 on October 27 necessitating the need inserted indwelling Sanches catheter. Nursing reports patient has been pulling on the indwelling Sanches catheter. Patients being followed by pulmonology being treated for right lobe pneumonia. Temp this morning is 97.2. Labs were reviewed. The white count is 6 hemoglobin 10.5 potassium 3.4 creatinine 0.5 liver enzymes normal currently indwelling Sanches catheter in place Objective - Vital Signs Vital signs: Vital Signs Temp 97.2 F L 10/28/16 07:00 Pulse 76 10/28/16 07:35 Resp 14 10/28/16 07:00 BP 93/44 10/28/16 07:00 Pulse Ox 95 10/28/16 07:00 Intake & Output 10/27/16 10/28/16 10/28/16 18:59 06:59 18:59 Output Total 400 3975 Balance -400 -3975 Output: Urine 400 3975 Other: Voiding Method Indwelling Catheter Indwelling Catheter Indwelling Catheter # Voids 1 # Bowel Movements 1 - Exam Physical exam 61-year-old male sitting up in bed is more awake more alert will answer questions making eye contact currently feeding self with diet taking fluids Lungs essentially clear with adequate air movement on room air sats are 95% Heart S1-S2 audible and regular Abdomen soft nontender bowel tones present nursing reports patient had a bowel movement the day before indwelling Sanches catheter in place Extremities no edema noted - Labs CBC & Chem 7: 10/28/16 07:04 10/28/16 07:00 Labs: Abnormal Lab Results - Last 24 Hours (Table) 10/28/16 10/28/16 Range/Units 07:00 07:04 RBC 3.25 L (4.30-5.90) m/uL Hgb 10.5 L (13.0-17.5) gm/dL Hct 31.1 L (39.0-53.0) % Potassium 3.4 L (3.5-5.1) mmol/L Chloride 109 H (98-107) mmol/L BUN 8 L (9-20) mg/dL Creatinine 0.50 L (0.66-1.25) mg/dL Calcium 8.1 L (8.4-10.2) mg/dL Total Protein 5.2 L (6.3-8.2) g/dL Albumin 2.7 L (3.5-5.0) g/dL Microbiology - Last 24 Hours (Table) 10/24/16 16:14 Blood Culture - Preliminary Blood No Growth after 72 hours Assessment and Plan Plan: Impression Present on admission psychotic thinking with catatonic features in a patient with acute exacerbation of psychosis in a patient with history of schizophrenia Schizophrenia Present on admission clinical dehydration poor oral intake likely due to acute exacerbation of psychosis with catatonic features in a patient with schizophrenia New onset urinary retention needing to have indwelling Sanches catheter inserted Chronic nicotine dependency greater than a 20 year history History of numerous psychiatric admissions No evidence of UTI per urinalysis Present on admission hypotensive necessitating fluid bolus resuscitation suspect due to poor oral intake due to psychotic catatonic features patient with acute exacerbation of psychosis A recent treatment for tracheobronchitis per chest x-ray October 13 completed antibiotic course of doxycycline Chest x-ray shows acute right lower lobe pneumonia suspected aspiration Plan continue recommendations by the psychiatric service defer to Resume meds as appropriate Continue recommendations from mental health service Haldol 2 mg daily with Cogentin 1 mg daily monitor the response Zithromax 500 mg daily for 7 more days Start Flomax 0.4mg daily Hep-Lock IV fluid Bladder scan every shift straight cath if greater than 600 From a medical perspective patient is felt to be appropriate to transfer back to the psychiatric unit for further mental health care PT OT ernestine The above dictated assessment and findings were discussed with dr jose martin Suarez and the plan of care have been dictated as directed. Debby Nixon nurse practitioner acting as a scribe for tea
[2016-10-28] MEDS: POTASSIUM CHLORIDE ER 20 MEQ TAB.ER PO SCH ×2 (11:55→15:05)
[2016-10-28] MEDS: TAMSULOSIN 0.4 MG CAP.ER.24H PO SCH (11:55)
--- NOTE | 2016-10-28 12:05 | P.PN ---
Progress Note - Text Interval history: The patient is found in his room he is seated upright in a chair next to his bed. The patient has no spontaneous speech she does not spontaneously make eye contact. After saying his name 2-3 times he eventually looks over and makes eye contact. He continues to describe his mood as "better " but does not specify how it is improved. It appears that the IV hydration has been discontinued he does still have an indwelling Sanches catheter at this time. The plan is for the catheter to be removed. He continues to retain urine and is undergoing bladder scans per shift. The patient has been seen by pulmonology and infectious disease. The patient has demonstrated no agitated behavior. Mental status exam: The patient is alert he does briefly make eye contact he continues to demonstrate significant psychomotor slowing. He has a poverty of speech. Thought process is not well organized he will answer some questions briefly and appropriately but with others he will provide irrelevant responses. He is not a reliable historian. He is endorsing no symptoms of psychosis but he continues to appear psychotic. Insight and judgment are impaired. He demonstrates no verbal or physical aggressiveness. He reports no suicidal or homicidal ideation. Impression/plan: Schizophrenia, likely delirium due to pneumonia The patient will be continued on his current psychotropic medications. The Sanches catheter will be discontinued we will see today if he is able to urinate on his own, I was informed that Flomax is being initiated. Nursing reports that the patient did consume some of his breakfast and they have been pushing oral hydration. The patient will be transferred to the psychiatric unit once he is medically stabilized we will reassess his status tomorrow.
--- NOTE | 2016-10-28 13:48 | P.PN ---
Subjective Principal diagnosis: Right lower lobe pneumonia Patient seen and examined. Patient states he did have a cough earlier today. He states he did cough up some phlegm. He denies any fevers or chills. He states he is hungry and would like lunch. He has no other needs or complaints at this time. Objective - Vital Signs Vital signs: Vital Signs Temp 97.2 F L 10/28/16 07:00 Pulse 76 10/28/16 07:35 Resp 14 10/28/16 07:00 BP 93/44 10/28/16 07:00 Pulse Ox 95 10/28/16 07:00 Intake & Output 10/27/16 10/28/16 10/28/16 18:59 06:59 18:59 Output Total 400 3975 1000 Balance -400 -3975 -1000 Output: Urine 400 3975 1000 Other: Voiding Method Indwelling Catheter Indwelling Catheter Indwelling Catheter # Voids 1 # Bowel Movements 1 - Exam Gen.: Patient is alert, oriented to place Cardiovascular: Regular rate and rhythm, S1/S2 Lungs: Diminished breath sounds bilaterally otherwise clear Abdomen: Soft nontender nondistended positive bowel sounds Extremities: No edema - Labs CBC & Chem 7: 10/28/16 07:04 10/28/16 07:00 Labs: Abnormal Lab Results - Last 24 Hours (Table) 10/28/16 10/28/16 Range/Units 07:00 07:04 RBC 3.25 L (4.30-5.90) m/uL Hgb 10.5 L (13.0-17.5) gm/dL Hct 31.1 L (39.0-53.0) % Potassium 3.4 L (3.5-5.1) mmol/L Chloride 109 H (98-107) mmol/L BUN 8 L (9-20) mg/dL Creatinine 0.50 L (0.66-1.25) mg/dL Calcium 8.1 L (8.4-10.2) mg/dL Total Protein 5.2 L (6.3-8.2) g/dL Albumin 2.7 L (3.5-5.0) g/dL Microbiology - Last 24 Hours (Table) 10/24/16 16:14 Blood Culture - Preliminary Blood No Growth after 72 hours Assessment and Plan Plan: Acute right lower lobe pneumonia, possible aspiration Pyrexia, 1 out of 4 SIRS Toxic metabolic encephalopathy Schizophrenia Anemia Mild thrombocytopenia Hypokalemia Acute psychosis Dehydration Urinary retention Active tobacco abuse O2 to maintain saturation greater than or equal to 88%, patient currently on room air Antibiotics - Azithromycin, add Clinda to cover aspiration Duo nebs Pulmicort Sputum culture pending Serial chest x-rays Psychiatric recommendations Encourage enteral nutrition Smoking cessation is recommended GI and DVT prophylaxis
[2016-10-28] MEDS: ACETAMINOPHEN TAB 325 MG TAB PO PRN (15:01)
[2016-10-28] MEDS: CLINDAMYCIN 150 MG CAP PO SCH ×2 (17:47→21:30)
--- NOTE | 2016-10-28 19:42 | PN ---
DATE OF SERVICE: 10/28/2016 REASON FOR FOLLOWUP: Pneumonia. INTERVAL HISTORY: The patient is afebrile. She is more awake, alert, up in the chair. Denies significant chest pain or cough. No abdominal pain. On examination, blood pressure is 93/44, pulse of 76, temperature 97.8, 95% on room air. GENERAL: A middle-age male up in chair in no distress. RESPIRATORY: Unlabored breathing. HEART: S1, S2 regular rate and rhythm. ABDOMEN: Soft, no tenderness. LABS: Hemoglobin 10.5, white count 6.0, BUN of 8, creatinine 0.50. DIAGNOSTIC IMPRESSION AND PLAN: Patient with fever. source likely pneumonia, likely community acquired. The patient is showing overall improvement on Rocephin and azithromycin. , cultures pending. Continue supportive care. MTDD
[2016-10-28] MEDS: ATORVASTATIN 20 MG TAB PO SCH (21:30)
[2016-10-29] MEDS: DIAZEPAM 5 MG TAB PO PRN ×2 (00:41→09:45)
[2016-10-29 08:31] LABS: ALT 26 U/L (21-72); AST 28 U/L (17-59); Alkaline Phosphatase 53 U/L (38-126); Anion Gap 9 mmol/L; Blood Urea Nitrogen 9 mg/dL (9-20); Calcium 8.9 mg/dL (8.4-10.2); Carbon Dioxide 26 mmol/L (22-30); Chloride 107 mmol/L (98-107); Glucose 89 mg/dL (74-99); Non-African American GFR(MDRD) >60 (>60 ml/min/1.73 sqM); Potassium 3.9 mmol/L (3.5-5.1); Sodium 142 mmol/L (137-145); Total Bilirubin 0.6 mg/dL (0.2-1.3); Total Protein 5.8 g/dL (6.3-8.2)
[2016-10-29] MEDS ORDERED: AZITHROMYCIN 500 MG TAB PO SCH (09:00)
[2016-10-29] MEDS: TAMSULOSIN 0.4 MG CAP.ER.24H PO SCH (09:44)
[2016-10-29] MEDS: HALOPERIDOL 2 MG TAB PO SCH ×2 (09:45→21:45)
[2016-10-29] MEDS: BENZTROPINE MESYLATE 1 MG TAB PO SCH (09:45)
[2016-10-29] MEDS: CLINDAMYCIN 150 MG CAP PO SCH (09:45)
[2016-10-29] MEDS: IPRATROPIUM-ALBUTEROL 3 ML NEB INHALATION PRN (10:47)
--- NOTE | 2016-10-29 10:48 | P.PN ---
Subjective 61-year-old male being seen and examined this morning event noted last evening. Around 3:00 in the morning nursing reports the bed alarm went off they found the patient on the floor patient had an unwitnessed fall currently this morning the patient is able to verbalize that he did fall. Patient is denying any pain when questioning. Patient is currently sitting up in bed taking a diet feeding self and drinking water. Patients being followed by the mental health service. Patient did need to be straight cathed last night. Flomax has been initiated. Patient currently is cooperative pleasant is not demonstrating any agitation behavior Objective - Vital Signs Vital signs: Vital Signs Temp 97.4 F L 10/29/16 07:00 Pulse 72 10/29/16 07:00 Resp 14 10/29/16 07:00 BP 118/68 10/29/16 07:00 Pulse Ox 94 L 10/29/16 07:00 Intake & Output 10/28/16 10/29/16 10/29/16 18:59 06:59 18:59 Output Total 1999 4300 Balance -2000 -4300 Output: Urine 1999 4300 Straight 600 2150 Other: Voiding Method Indwelling Catheter Indwelling Catheter # Voids 1 - Exam Physical exam 61-year-old male sitting up in bed taking a diet feeding self pleasant cooperative oriented to person and place was able to recall falling last evening. Patient is stating that he is thirsty Lungs essentially clear adequate air movement on room air Heart S1-S2 audible and regular Abdomen soft not distended bowel tones present no stool reportedly had a bowel movement on October 27 continues to need to be straight cathed is not initiating ability to urinate on his own no incontinence of urine nontender Extremities no edema noted - Labs CBC & Chem 7: 10/28/16 07:04 10/29/16 07:32 Labs: Abnormal Lab Results - Last 24 Hours (Table) 10/29/16 Range/Units 07:32 Creatinine 0.50 L (0.66-1.25) mg/dL Total Protein 5.8 L (6.3-8.2) g/dL Albumin 3.1 L (3.5-5.0) g/dL Microbiology - Last 24 Hours (Table) 10/24/16 16:14 Blood Culture - Preliminary Blood No Growth after 96 hours Assessment and Plan Plan: Impression Present on admission psychotic thinking with catatonic features in a patient with acute exacerbation of psychosis in a patient with history of schizophrenia Schizophrenia Present on admission clinical dehydration poor oral intake likely due to acute exacerbation of psychosis with catatonic features in a patient with schizophrenia New onset urinary retention needing to have indwelling Sanches catheter inserted Chronic nicotine dependency greater than a 20 year history History of numerous psychiatric admissions No evidence of UTI per urinalysis Present on admission hypotensive necessitating fluid bolus resuscitation suspect due to poor oral intake due to psychotic catatonic features patient with acute exacerbation of psychosis A recent treatment for tracheobronchitis per chest x-ray October 13 completed antibiotic course of doxycycline Chest x-ray shows acute right lower lobe pneumonia suspected aspiration Plan continue recommendations by the psychiatric service defer to Resume meds as appropriate Continue recommendations from mental health service Haldol 2 mg daily with Cogentin 1 mg daily monitor the response Zithromax 500 mg daily for 7 more days Start Flomax 0.4mg daily Hep-Lock IV fluid Bladder scan every shift straight cath if greater than 600 From a medical perspective patient is felt to be appropriate to transfer back to the psychiatric unit for further mental health care PT OT ernestine The above dictated assessment and findings were discussed with dr jose martin Suarez and the plan of care have been dictated as directed. Debby Nixon nurse practitioner acting as a scribe for tea
--- NOTE | 2016-10-29 11:52 | P.PN ---
Progress Note - Text Interval history: The patient is found in his room lying in bed. He has family at bedside including his brother and 2 sisters. His brother has been out of the country and has just returned. We discussed the patient's symptoms precipitating the admission his course on the mental health unit and his course on the medical floor. The patient reports that he has been eating better and trying to hydrate more. He is not on IV hydration. He does continue to retain urine and has required straight catheterizations. Nursing reports that the patient experienced a fall trying to get out of bed last evening. He states he was trying to get to the restroom. He is endorsing no hallucinations or specific delusions he is endorsing no thoughts of self-harm. Mental status exam: The patient is alert he continues to demonstrate significant psychomotor slowing. He has no spontaneous speech he quietly answers questions briefly. He is noted to have a resting tremor of his right upper extremity. There is no verbal or physical aggressiveness. He is disheveled hygiene impaired. He is dressed in hospital attire. He is making efforts to interact with family. Affect remains flat he is oriented to person place days a week a month and year. Impression: Schizophrenia, delirium resolving Plan: The patient will be continued on the Haldol we will discontinue the Cogentin in case it is contributing to urinary retention. He has been started on Flomax. The medical staff believe he is medically cleared for transfer back to the mental health unit. He will be assessed by the emergency psychiatric nurse. His family members questions were answered.
--- NOTE | 2016-10-29 13:58 | PN ---
DATE OF SERVICE: 10/29/2016 Reason for followup is pneumonia, likely community-acquired with a question of possible aspiration. INTERVAL HISTORY: The patient is afebrile. He seems to be breathing comfortably, up in the bed; however, did not answer any questions when asked specifically about his breathing or cough. On examination, blood pressure is 118/68 with a pulse of 72, temperature is 97.4, he is 94% on room air. General description is a middle-aged male, up in the bed in no distress. RESPIRATORY SYSTEM: Unlabored breathing. Some decreased breath sounds at the base. No wheeze. HEART: S1, S2. Regular rate and rhythm. ABDOMEN: Soft, no tenderness. LABS: BUN of 9, creatinine 0.50. DIAGNOSTIC IMPRESSION AND PLAN: Patient with pneumonia, right lower lobe with a question of possible community-acquired versus aspiration. Antibiotic with adjusted to Augmentin to cover for both etiologies which he will continue for about 7 to 10 days. Continue supportive care.
[2016-10-29 15:51] LABS: Appearance,Urine Clear (Clear); Bilirubin,Urine Negative (Negative); Glucose,Urine (UA) Negative (Negative); Ketones,Urine Negative (Negative); Leukocyte Esterase,Urine Negative (Negative); Nitrite,Urine Negative (Negative); Protein,Urine Negative (Negative); Specific Gravity,Urine 1.007 (1.001-1.035); UA Billing (MACRO vs. MICRO) CHEM; Urobilinogen,Urine <2.0 mg/dL (<2.0)
[2016-10-29] MEDS: AMOXIC-POT CLAV 875-125MG 1 EACH TAB PO SCH (21:45)
[2016-10-29] MEDS: ATORVASTATIN 20 MG TAB PO SCH (21:45)
--- NOTE | 2016-10-29 22:43 | P.PN ---
Subjective Principal diagnosis: Aspiration pneumonia Patient seen and examined. Patient states his breathing is good, he has no SOB or chest pain. He says his cough is improving. He is asking to take a shower today. He has no other concerns or needs at this time. Objective - Vital Signs Vital signs: Vital Signs Temp 97.4 F L 10/29/16 15:00 Pulse 90 10/29/16 15:00 Resp 16 10/29/16 15:00 BP 111/64 10/29/16 15:00 Pulse Ox 92 L 10/29/16 15:00 Intake & Output 10/29/16 10/29/16 10/30/16 06:59 18:59 06:59 Output Total 4300 3350 Balance -4300 -3350 Output: Urine 4300 3350 Straight 2150 2350 Other: Voiding Method Indwelling Catheter Indwelling Catheter # Voids 1 - Exam Gen.: Patient is alert, oriented to place Cardiovascular: Regular rate and rhythm, S1/S2 Lungs: Diminished breath sounds bilaterally otherwise clear Abdomen: Soft nontender nondistended positive bowel sounds Extremities: No edema - Labs CBC & Chem 7: 10/28/16 07:04 10/29/16 07:32 Labs: Abnormal Lab Results - Last 24 Hours (Table) 10/29/16 Range/Units 07:32 Creatinine 0.50 L (0.66-1.25) mg/dL Total Protein 5.8 L (6.3-8.2) g/dL Albumin 3.1 L (3.5-5.0) g/dL Microbiology - Last 24 Hours (Table) 10/24/16 16:14 Blood Culture - Preliminary Blood No Growth after 120 hours 10/29/16 15:45 Urine Culture - Preliminary Urine,Catheterized Assessment and Plan Plan: Acute right lower lobe pneumonia, possible aspiration Pyrexia, 1 out of 4 SIRS Toxic metabolic encephalopathy Schizophrenia Anemia Mild thrombocytopenia Hypokalemia Acute psychosis Dehydration Urinary retention Active tobacco abuse O2 to maintain saturation greater than or equal to 88%, patient currently on room air Antibiotics - Azithromycin, add Clinda to cover aspiration Duo nebs Pulmicort Sputum culture pending Psychiatric recommendations Encourage enteral nutrition Smoking cessation is recommended GI and DVT prophylaxis Ok to DC from pulmonary standpoint. Respiratory status is stable. Complete ABX course.
--- NOTE | 2016-10-30 06:39 | PN ---
CHIEF COMPLAINT: Catatonia, dehydration, schizophrenia. HISTORY OF PRESENT ILLNESS: This gentleman started to become a little bit more awake and alert. His catatonia does fluctuate. PHYSICAL EXAM: His eyes are open and he responds only slowly and minimally. Chest is clear. Cardiac exam is normal. ABDOMEN: Soft and nontender. IMPRESSION: 1. Catatonia. 2. Schizophrenia. 3. Dehydration. PLAN: Continue to hold him on the medical floor until he is stable enough to go back to psych.
--- NOTE | 2016-10-30 06:54 | PN ---
CHIEF COMPLAINT: Schizophrenia and catatonia. HISTORY OF PRESENT ILLNESS: This gentleman's condition is about the same. He has not improved a great deal over the last several days. PHYSICAL EXAM: He is pale. Chest is clear. Cardiac exam is normal. ABDOMEN: Soft, nontender. IMPRESSION: Schizophrenia and catatonia. PLAN: Continue management on the medical floor until it is deemed that he can go back and participate in the program on .
--- NOTE | 2016-10-30 07:10 | PN ---
CHIEF COMPLAINT: Schizophrenia and catatonia. HISTORY OF PRESENT ILLNESS: The gentleman is a little bit worse today. He seems less responsive and communicative than yesterday. Physical exam is normal otherwise. IMPRESSION: Schizophrenia and catatonia. PLAN: Await further directions from Psychiatry.
[2016-10-30] MEDS: TAMSULOSIN 0.4 MG CAP.ER.24H PO SCH (07:49)
[2016-10-30] MEDS: AMOXIC-POT CLAV 875-125MG 1 EACH TAB PO SCH ×2 (07:49→21:26)
[2016-10-30] MEDS: DIAZEPAM 5 MG TAB PO PRN ×2 (07:50→21:26)
[2016-10-30] MEDS: HALOPERIDOL 2 MG TAB PO SCH ×2 (07:50→21:26)
[2016-10-30] MEDS: IPRATROPIUM-ALBUTEROL 3 ML NEB INHALATION PRN (08:23)
--- NOTE | 2016-10-30 12:06 | P.PN ---
Subjective Principal diagnosis: Aspiration pneumonia Patient seen and examined. Patient states he is feeling good today. He denies shortness of breath. He was able to ambulate to the bathroom. He ate breakfast and had a bowel movement today. He is currently on room air. Objective - Vital Signs Vital signs: Vital Signs Temp 98.9 F 10/30/16 07:00 Pulse 80 10/30/16 08:32 Resp 16 10/30/16 07:00 BP 105/59 10/30/16 07:00 Pulse Ox 94 L 10/30/16 07:00 Intake & Output 10/29/16 10/30/16 10/30/16 18:59 06:59 18:59 Intake Total 320 Output Total 3350 3750 800 Balance -3350 -3430 -800 Intake: Oral 320 Output: Urine 3350 2500 800 Straight 2350 1250 800 Post Void Residual 1250 - Exam Gen.: Patient is alert, oriented to place Cardiovascular: Regular rate and rhythm, S1/S2 Lungs: Diminished breath sounds bilaterally otherwise clear Abdomen: Soft nontender nondistended positive bowel sounds Extremities: No edema - Labs CBC & Chem 7: 10/28/16 07:04 10/29/16 07:32 Labs: Microbiology - Last 24 Hours (Table) 10/24/16 16:14 Blood Culture - Preliminary Blood No Growth after 120 hours 10/29/16 15:45 Urine Culture - Preliminary Urine,Catheterized Assessment and Plan Plan: Acute right lower lobe pneumonia, possible aspiration Pyrexia, 1 out of 4 SIRS Toxic metabolic encephalopathy Schizophrenia Anemia Mild thrombocytopenia Hypokalemia Acute psychosis Dehydration Urinary retention Active tobacco abuse O2 to maintain saturation greater than or equal to 88%, patient currently on room air Antibiotics - Azithromycin, add Clinda to cover aspiration Duo nebs Pulmicort Sputum culture pending Psychiatric recommendations Encourage enteral nutrition Smoking cessation is recommended GI and DVT prophylaxis Ok to DC from pulmonary standpoint. Respiratory status is stable. Complete ABX course.
--- NOTE | 2016-10-30 12:55 | P.PN ---
Subjective 61-year-old male being seen and examined this morning continues to be more awake more alert pleasant and cooperative. Nursing reports the patient is able to ambulate to the bathroom with standby assist. Patient is able to feed self today and is taking a diet. Patient had a bowel movement this morning Currently no labs pending this morning Continues to need to be straight cathed patient states he feels urge to void but not able to initiate Objective - Vital Signs Vital signs: Vital Signs Temp 98.9 F 10/30/16 07:00 Pulse 80 10/30/16 08:32 Resp 16 10/30/16 07:00 BP 105/59 10/30/16 07:00 Pulse Ox 94 L 10/30/16 07:00 Intake & Output 10/29/16 10/30/16 10/30/16 18:59 06:59 18:59 Intake Total 320 240 Output Total 3350 3750 800 Balance -3350 -3430 -560 Intake: Oral 320 240 Output: Urine 3350 2500 800 Straight 2350 1250 800 Post Void Residual 1250 - Exam Physical exam 61-year-old male pleasant cooperative following simple commands was able to ambulate from the bed to the bathroom able to feed self Lungs essentially clear adequate air movement on room air Heart S1-S2 audible and regular Abdomen soft not distended bowel tones present reportedly had a bowel movement on October 30 continues to need to be straight cathed is not initiating ability to urinate on his own no incontinence of urine Extremities no edema noted - Labs CBC & Chem 7: 10/28/16 07:04 10/29/16 07:32 Labs: Microbiology - Last 24 Hours (Table) 10/24/16 16:14 Blood Culture - Preliminary Blood No Growth after 120 hours 10/29/16 15:45 Urine Culture - Preliminary Urine,Catheterized Assessment and Plan Plan: Impression Present on admission psychotic thinking with catatonic features in a patient with acute exacerbation of psychosis in a patient with history of schizophrenia Schizophrenia Present on admission clinical dehydration poor oral intake likely due to acute exacerbation of psychosis with catatonic features in a patient with schizophrenia New onset urinary retention needing to have indwelling Sanches catheter inserted Chronic nicotine dependency greater than a 20 year history History of numerous psychiatric admissions No evidence of UTI per urinalysis Present on admission hypotensive necessitating fluid bolus resuscitation suspect due to poor oral intake due to psychotic catatonic features patient with acute exacerbation of psychosis A recent treatment for tracheobronchitis per chest x-ray October 13 completed antibiotic course of doxycycline Present on admission Chest x-ray shows acute right lower lobe pneumonia suspected aspiration suspect due to acute exacerbation of psychosis Present on admission toxic encephalopathy slowly resolving suspect due to an acute exacerbation of psychosis with catatonic features Plan continue recommendations by the psychiatric service defer to Resume meds as appropriate Continue recommendations from mental health service Haldol 2 mg daily with Cogentin 1 mg daily monitor the response Augmentin as ordered Start Flomax 0.4mg daily Hep-Lock IV fluid Bladder scan every shift straight cath if greater than 600 From a medical perspective patient is felt to be appropriate to transfer back to the psychiatric unit for further mental health care PT OT eval The above dictated assessment and findings were discussed with dr jose martin Suarez and the plan of care have been dictated as directed. Debby Nixon nurse practitioner acting as a scribe for tea
--- NOTE | 2016-10-30 21:05 | P.GSCN ---
History of Present Illness Consult date: 10/30/16 History of present illness: The patient is a 61-year-old gentleman in the hospital with an acute schizophrenic episode. He is in the medical Hospital because of dehydration. He had an indwelling catheter now is on intermittent catheterization. The patient's dehydration is improved and is apparently going to be transferred back to the psychiatric unit however we are asked see the patient because of his inability to void. The patient is interviewed at the bedside. How reliable the history is is indeterminate. He states that he may have had problems urinating over the last several weeks. He states that he did not get up at night. He states that he may have been incontinent. He is not real clear to his status. Per the nursing staff he has not voided. He has required intermittent catheterization. Review of Systems ROS unobtainable: due to mental status Past Medical History Past Medical History: Hyperlipidemia History of Any Multi-Drug Resistant Organisms: None Reported Past Surgical History: Orthopedic Surgery Additional Past Surgical History / Comment(s): bilateral ankles, removal of skin cancer on [facility] Past Psychological History: Anxiety, Bipolar, Depression, Schizoaffective Disorder Smoking Status: Current some day smoker Past Alcohol Use History: None Reported Past Drug Use History: None Reported - Past Family History Father History Unknown: Yes Medications and Allergies Home Medications Medication Instructions Recorded Confirmed Type Simvastatin [Zocor] 40 mg PO HS 02/09/16 10/22/16 History Paliperidone Palmitate [Invega 410 mg IM Q90D 09/04/16 10/22/16 History Trinza] Acetaminophen with Codeine 1 tab PO TID PRN 10/13/16 10/22/16 History [Tylenol w/codeine #4] Diazepam [Valium] 5 mg PO TID PRN 10/13/16 10/22/16 History Allergies Allergy/AdvReac Type Severity Reaction Status Date / Time NSAIDS (Non-Steroidal AdvReac Nausea Verified 10/13/16 19:54 Anti-Inflamma Surgical - Exam Vital Signs Temp Pulse Resp BP Pulse Ox 98.3 F 108 H 14 108/58 98 10/22/16 23:00 10/22/16 23:00 10/22/16 23:00 10/22/16 23:00 10/22/16 23:00 - General The patient has a very flat affect and communicates in a limited fashion verbally. well developed, well nourished, other - ENT no hearing loss - Neck trachea midline - Respiratory normal respiratory effort - Abdomen Abdomen: soft, non tender - Genitourinary The prostate is 20-30 g soft and benign. There is soft stool in the rectum. testicles present - Rectum Rectum: normal sphincter tone - Neurologic normal sensation Results - Labs 10/28/16 07:04 10/29/16 07:32 Microbiology - Last 24 Hours (Table) 10/29/16 15:45 Urine Culture - Final Urine,Catheterized 10/24/16 16:14 Blood Culture - Final Blood No Growth after 144 hours Assessment and Plan Plan: Impression: Schizophrenic, catatonic type. Dehydration resolved. Urine retention of indeterminate cause. Recommendation: The patient is on CIC and was just started on Flomax. Difficult to say why he is struggling to void. We will see how he response to the Flomax.
[2016-10-30] MEDS: ATORVASTATIN 20 MG TAB PO SCH (21:26)
--- NOTE | 2016-10-30 21:58 | PN ---
CHIEF COMPLAINT: Catatonia. HISTORY OF PRESENT ILLNESS: This gentleman is just about the same, and there has been no interval change. We are wondering about moving him to a alf. PHYSICAL EXAMINATION: He still remains minimally responsive and still catatonic. CHEST: Clear. CARDIAC: Normal. ABDOMEN: Soft. IMPRESSION: 1. Catatonia. 2. Schizophrenia. PLAN: Continue to follow up, but he should probably be discharged to a recovery facility, at least for a period of time.
--- NOTE | 2016-10-30 23:25 | PN ---
DATE OF SERVICE: 10/30/2016 REASON FOR FOLLOWUP: Pneumonia; question of community-acquired versus aspiration. INTERVAL HISTORY: The patient is afebrile. He seems to be more awake, alert. He did complain of some cough; not bringing up significant sputum. No chest pain. No abdominal pain or any diarrhea. On examination, blood pressure is 90/53 with a pulse of 82, temperature 97.4. He is 94% on room air. General description is a middle-aged male up in the chair in no distress. RESPIRATORY SYSTEM: Unlabored breathing with decreased breath sounds at the base. No wheeze. HEART: S1, S2. Regular rate and rhythm. ABDOMEN: Soft. No tenderness. LABS: UA has been negative. No other labs have been obtained today. Blood culture has been negative. DIAGNOSTIC IMPRESSION AND PLAN: Patient admitted to hospital with a fever and concern for right lower lobe pneumonia with a question of possible community-acquired versus aspiration. He is currently on oral Augmentin. All his cultures have been negative. Recommend keeping the patient on oral Augmentin for another 8 to 10 days to finish a course of therapy. Continue supportive care.
[2016-10-31] MEDS: TAMSULOSIN 0.4 MG CAP.ER.24H PO SCH (08:07)
[2016-10-31] MEDS: HALOPERIDOL 2 MG TAB PO SCH (08:07)
[2016-10-31] MEDS: AMOXIC-POT CLAV 875-125MG 1 EACH TAB PO SCH (08:07)
[2016-10-31] MEDS: Acetaminophen-Codeine 300-30mg TAB PO PRN (08:13)
--- NOTE | 2016-10-31 12:29 | P.DS ---
Providers Date of admission: 10/22/16 21:50 Expected date of discharge: 10/31/16 Attending physician: Ashish Card Consults: 10/24/16 09:57 Consult Physician Routine Consulting Provider: Morales Peterson Consult Reason/Comments: SCHIZOPHRENIA Do you want consulting provider notified?: Already Contacted 10/24/16 15:14 Consult Physician Urgent Consulting Provider: Lazaro Keith Consult Reason/Comments: Recommendations if antibiotics are indicated Do you want consulting provider notified?: Yes 10/25/16 11:00 Consult Physician Stat Consulting Provider: Marcela Ibarra Consult Reason/Comments: pnumonia Do you want consulting provider notified?: Yes 10/30/16 14:26 Consult Physician Stat Consulting Provider: Hema Sánchez Consult Reason/Comments: Urinary retention Do you want consulting provider notified?: Yes Primary care physician: Ashish Card [facility] Course: A 61-year-old was seen on the mental health unit on October 22 after nursing staff activated A team which did respond to the mental health unit in a patient who was experiencing altered mental status nonverbal hypotensive in a catatonic episode. Nursing reports on the mental health unit patient had been not drinking adequately Patient was given a 500 mL fluid bolus of normal saline. Nursing also on the mental health unit indicate the patient needed to be straight cathed and indwelling Sanches catheter was inserted. Patient was transferred from the mental unit to a [facility] bed. Additionally patient was experiencing urinary retention and indwelling Sanches catheter was inserted which the patient pulled out on 2 occasions. Patient continued to experience symptoms of psychosis demonstrating catatonic features over the course of the hospitalization the symptoms significantly improved. At the time of transferring back to the mental health unit patient was able to feed self with assistance could toilet self. Patient was followed throughout the hospitalization by psychiatric service with recommendations noted and appreciated. Additionally PT OT participate in the plan of care. patient psychotic features improved patient was able to ambulate with the use of rolled walker with standby assist Urology recommended continuing with intermittent catheterization continue with the Flomax continue to monitor. Additionally patient was seen by pulmonology after chest x-ray on admission showed right lower lobe infiltrate suspect from aspiration. Patient did have a temp of 101.2. Patient was started on IV antibiotics and monitored closely. Over the course of the hospitalization pulmonary status continued to improve patient could complete a course of Augmentin for another 8 days. There were no O2 needs identified. Patient was felt to be appropriate to transfer back to the mental health unit for further care Impression Present on admission psychotic thinking with catatonic features in a patient with acute exacerbation of psychosis in a patient with history of schizophrenia Schizophrenia Present on admission clinical dehydration poor oral intake likely due to acute exacerbation of psychosis with catatonic features in a patient with schizophrenia New onset urinary retention needing to have indwelling Sanches catheter inserted Chronic nicotine dependency greater than a 20 year history History of numerous psychiatric admissions No evidence of UTI per urinalysis Present on admission hypotensive necessitating fluid bolus resuscitation suspect due to poor oral intake due to psychotic catatonic features patient with acute exacerbation of psychosis A recent treatment for tracheobronchitis per chest x-ray October 13 completed antibiotic course of doxycycline Present on admission Chest x-ray shows acute right lower lobe pneumonia suspected aspiration suspect due to acute exacerbation of psychosis Present on admission toxic encephalopathy slowly resolving suspect due to an acute exacerbation of psychosis with catatonic features The above dictated assessment and findings were discussed with dr jose martin Suarez and the plan of care have been dictated as directed. Debby Nixon nurse practitioner acting as a scribe for tea Plan - Discharge Summary New Discharge Prescriptions: New Amoxic-Pot Clav 875-125Mg [Augmentin 875-125] 1 each PO Q12HR #14 tab Tamsulosin [Flomax] 0.4 mg PO PC-BRKFST #30 cap Acetaminophen Tab [Tylenol] 650 mg PO Q6HR PRN tab PRN Reason: for fever or pain 1-5 Haloperidol [Haldol] 2 mg PO BID tab Continue Simvastatin [Zocor] 40 mg PO HS Paliperidone Palmitate [Invega Trinza] 410 mg IM Q90D Diazepam [Valium] 5 mg PO TID PRN PRN Reason: Anxiety Acetaminophen with Codeine [Tylenol w/codeine #4] 1 tab PO TID PRN PRN Reason: Pain Discharge Medication List Simvastatin [Zocor] 40 mg PO HS 02/09/16 [History] Paliperidone Palmitate [Invega Trinza] 410 mg IM Q90D 09/04/16 [History] Acetaminophen with Codeine [Tylenol w/codeine #4] 1 tab PO TID PRN 10/13/16 [ History] Diazepam [Valium] 5 mg PO TID PRN 10/13/16 [History] Acetaminophen Tab [Tylenol] 650 mg PO Q6HR PRN tab 10/31/16 [Rx] Amoxic-Pot Clav 875-125Mg [Augmentin 875-125] 1 each PO Q12HR #14 tab 10/31/16 [ Rx] Haloperidol [Haldol] 2 mg PO BID tab 10/31/16 [Rx] Tamsulosin [Flomax] 0.4 mg PO PC-BRKFST #30 cap 10/31/16 [Rx] Follow up Appointment(s)/Referral(s): Ashish Card MD [Primary Care Provider] - 1 Week Patient Instructions/Handouts: Dehydration (DC), Schizophrenia (DC) Activity/Diet/Wound Care/Special Instructions: Low fat diet. NO smoking- cessation information given. Discharge Disposition: TRANSFER TO PSYCH HOSP/UNIT
[2016-10-31 15:47] VITALS: BP 121/69; PULSE 86; RESP 20; TEMP 97.7
--- NOTE | 2016-10-31 17:59 | PN ---
DATE OF SERVICE: 10/31/2016 Reason for follow-up: Pneumonia. INTERVAL HISTORY: The patient is afebrile. He is breathing comfortably. He did have some cough. Unable to quantify any further. No significant abdominal pain. On examination, blood pressure is 106/54 with a pulse of 80, temperature 98.2. He is 98% on room air. General description is a middle age male lying in bed in no distress. RESPIRATORY SYSTEM: Unlabored breathing. Decreased breath sounds. No wheeze. HEART: S1, S2 regular rate and rhythm. ABDOMEN: Soft, no tenderness. LABS: He did have a urine that is negative. Blood culture has been negative. DIAGNOSTIC IMPRESSION AND PLAN: Patient with a fever. Source right lower lobe with a question of possible community acquired versus aspiration, overall improvement, currently on oral Augmentin. Continue another 7 to 10 days to finish course. Continue supportive care.
--- NOTE | 2016-10-31 18:57 | PN ---
CHIEF COMPLAINT: Catatonia. HISTORY OF PRESENT ILLNESS: The gentleman is getting a little bit worse. He is more lethargic and not as responsive. He has tremor in the right hand. He has had no fever or chills. PHYSICAL EXAMINATION: He is slightly pale. CHEST: Clear. CARDIAC: Normal. ABDOMEN: Soft, nontender. IMPRESSION: Schizophrenia with catatonia. PLAN: There will have to be an alternative consideration given to discharging this gentleman. He clearly cannot benefit by going back to the psychiatric unit and he certainly cannot be at home alone. We will look for an extended-care situation.
--- NOTE | 2016-11-01 21:44 | PN ---
CHIEF COMPLAINT: Dehydration, schizophrenia and catatonia with tardive dyskinesia. HISTORY OF PRESENT ILLNESS: This gentleman is just about ( ) is not significantly improving. He still may be taken back to the psych service, if so, this will be arranged by the nurse practitioner.
== END 2016-10-31 16:29 | disposition short-term general hospital (02) | DRG 177 ==
LOC: 4MS4W 21:50
PROVIDERS: ADMIT Family Medicine; ATTEND Family Medicine
DX: J69.0 Pneumonitis due to inhalation of food and vomit (principal); G92 Toxic encephalopathy; F20.2 Catatonic schizophrenia; F23 Brief psychotic disorder; I95.9 Hypotension, unspecified; D69.6 Thrombocytopenia, unspecified; E86.0 Dehydration; F32.9 Major depressive disorder, single episode, unspecified; E78.5 Hyperlipidemia, unspecified; E87.6 Hypokalemia; F17.210 Nicotine dependence, cigarettes, uncomplicated; F41.9 Anxiety disorder, unspecified; R33.9 Retention of urine, unspecified; D64.9 Anemia, unspecified; Z79.899 Other long term (current) drug therapy; Z85.828 Personal history of other malignant neoplasm of skin; Z88.6 Allergy status to analgesic agent; W06.XXXA Fall from bed, initial encounter; Y92.230 Patient room in hospital as the place of occurrence of the external cause
CPT/HCPCS: 71010; 80053; 81001; 81003; 85025; 87040; 87086; 94640

== ENCOUNTER 2016-10-31 15:07 | Inpatient (IN) | payer BC, MEDICARE ==
[2016-10-31] MEDS ORDERED: MAG HYDROX/AL HYDROX/SIMETH 30 ML CUP PO PRN (16:13)
[2016-10-31] MEDS ORDERED: MAGNESIUM HYDROXIDE 2,400 MG/10 ML CUP PO PRN (16:13)
[2016-10-31] MEDS: HALOPERIDOL 2 MG TAB PO SCH (21:41)
[2016-10-31] MEDS: AMOXIC-POT CLAV 875-125MG 1 EACH TAB PO SCH (21:41)
[2016-10-31] MEDS: ATORVASTATIN 20 MG TAB PO SCH (21:41)
[2016-11-01] MEDS: traZODone HCL 50 MG TAB PO PRN (02:12)
[2016-11-01] MEDS: TAMSULOSIN 0.4 MG CAP.ER.24H PO SCH (09:47)
[2016-11-01] MEDS: HALOPERIDOL 2 MG TAB PO SCH (09:47)
[2016-11-01] MEDS: AMOXIC-POT CLAV 875-125MG 1 EACH TAB PO SCH ×2 (09:47→20:57)
--- NOTE | 2016-11-01 10:11 | P.HP ---
Psychiatric H&P - . History & Physical: Allergies Allergy/AdvReac Type Severity Reaction Status Date / Time NSAIDS (Non-Steroidal AdvReac Nausea Verified 10/13/16 19:54 Anti-Inflamma Vital Signs Temp 97.9 F 11/01/16 06:41 Pulse 74 11/01/16 06:41 Resp 14 11/01/16 06:41 BP 107/58 11/01/16 06:41 Pulse Ox 97 10/31/16 17:19 Intake & Output 10/31/16 11/01/16 11/01/16 18:59 06:59 18:59 Intake Total 120 480 Output Total 1230 Balance -1110 480 Weight 65.5 kg Intake: Oral 120 480 Output: Urine 1230 Other: # Voids 1 11/01/16 10:03 IDENTIFYING DATA: This patient is a 61-year-old male who re-presents to the mental health unit from the fourth floor for continued treatment of his acute psychosis. HPI: The patient presents with acute symptoms of psychosis in the context of an ongoing diagnosis of schizophrenia. The patient is well-known to my outpatient practice. He was admitted to this unit originally but required transfer to the medical floor for dehydration and treatment of pneumonia. On the medical floor he developed urinary retention and now requires straight catheterization per shift. The patient had been stabilized on Invega Sustenna for quite some time. In the recent past we transitioned him to invega Trinza. The patient has experienced a decompensation in terms of psychosis. We did try to supplement orally with invega without success. He has been treated for pneumonia with antibiotics. I did try Haldol to address symptoms of psychosis. Benzodiazepines have not improved his catatonic features. Cogentin did not improve any presumed extraparametal symptoms. The patient's continues to demonstrate symptoms of catatonia and psychosis. He is able to verbalize more and conversation. He informs me this morning that he does not like the Haldol he feels his eyes rolled back in his head with it area he is noticed to have a tremor of his right upper extremity as well. Staff have been assisting him with feeding and toileting. He is on one-to-one supervision due to fall risk. PAST PSYCHIATRIC HISTORY: The patient has had a history of several psychiatric admissions he is diagnosed with schizophrenia. He has done well with invega systemic in the past. PMH: Recent pneumonia, urinary retention, history of back pain ALLERGIES: NSAIDs MEDICATIONS: Refer to [facility] CHEMICAL DEPENDENCY HISTORY: No reported use of alcohol or illicit drugs FAMILY PSYCHIATRIC HISTORY: Unknown FAMILY CHEMICAL DEPENDENCY HISTORY: Unknown SOCIAL HISTORY: The patient resides alone in his own condominium. He does have the support of his brother and 2 sisters. I believe he does have a daughter however she does not participate in his care to my knowledge MENTAL STATUS EXAM: The patient is an alert male appearing older than his stated age. He has a disheveled appearance and overgrown brandt he is dressed in hospital gowns. He keeps his eyes closed during the course of our discussion this morning. He moves his arms about his head in awaiting fashion indicating that he is praying. In terms of mood he states "not too good" he is noticed to have a resting tremor of his right upper extremity. He is oriented to person place month and year. He is not able to spell world backwards at this time. This is likely due to symptoms of psychosis and thought disorganization that is present. Insight and judgment are impaired. He demonstrates no verbal or physical aggressiveness. He provides some bizarre answers to questions asked. He is a partial historian. He reports no current suicidal or homicidal ideation but indicates that that could change. STRENGTHS/WEAKNESSES: Strengths: Housing, income, family support weaknesses acute exacerbation of psychosis INTELLECTUAL FUNCTIONING: Average IMPRESSIONS: [] 1. Schizophrenia 2. Right lower lobe pneumonia, urinary retention, history of back pain PLAN: The patient has been admitted to the mental health unit voluntarily. We have had little success so far ameliorating his symptoms of psychosis. I will discontinue the Haldol as he does appear to be having some extraparametal side effects. For an extended period of time he has done well with invega systemic. I will retry the oral dose of invega. It does appear to some small extent with IV hydration and treatment of the pneumonia his affect has improved. We will continue him on one-to-one supervision for safety in terms of fall risk. We will track his oral intake. He continues to undergo bladder scans per shift with straight catheterization as needed.
[2016-11-01 10:12] LABS: ALT 36 U/L (21-72); AST 29 U/L (17-59); Alkaline Phosphatase 67 U/L (38-126); Anion Gap 13 mmol/L; Blood Urea Nitrogen 13 mg/dL (9-20); Calcium 9.6 mg/dL (8.4-10.2); Carbon Dioxide 27 mmol/L (22-30); Chloride 101 mmol/L (98-107); Glucose 130 mg/dL (74-99); Non-African American GFR(MDRD) >60 (>60 ml/min/1.73 sqM); Potassium 4.2 mmol/L (3.5-5.1); Sodium 141 mmol/L (137-145); Total Bilirubin 0.5 mg/dL (0.2-1.3)
[2016-11-01 10:14] LABS: Basophils % (A) 1 %; CH 32.5; CHCM 33.6; Eosinophils # (A) 0.2 k/uL (0-0.7); Eosinophils % (A) 3 %; HCT 40.6 % (39.0-53.0); HDW 3.01; Luc # (Auto) 0.12; Luc % (Auto) 2; Lymphocytes # (A) 1.1 k/uL (1.0-4.8); Lymphocytes % (A) 17 %; MCH 31.1 pg (25.0-35.0); MCV 97.2 fL (80.0-100.0); Mean Platelet Volume 6.6; Monocytes # (A) 0.3 k/uL (0-1.0); Monocytes % (A) 5 %; Neutrophils # (A) 4.5 k/uL (1.3-7.7); Neutrophils % (A) 72 %; RBC 4.17 m/uL (4.30-5.90); RDW 11.8 % (11.5-15.5); WBC 6.3 k/uL (3.8-10.6); WBC (Perox) 6.02
--- NOTE | 2016-11-01 16:56 | CONS ---
DATE OF CONSULTATION: CHIEF COMPLAINT: Acute psychosis with catatonia. HISTORY OF PRESENT ILLNESS: This gentleman was transferred down from the medical floor after he became catatonic and unresponsive. He is improved somewhat but still is very inactive and marginally communicative. He is also developing increasing tremor in the right upper extremity, which is probably part of his tardive dyskinesia. REVIEW OF SYSTEMS: He denies any headaches, chest pain or shortness of breath, abdominal pain, etc. Past medical history, family history and personal and social histories are all unchanged from his prior stay in the psychiatric unit as well as -. PHYSICAL EXAMINATION: VITAL SIGNS: Blood pressure is 119/76 with a pulse of 84, respirations 16. He is afebrile. GENERAL: Appeared to be with tremor in the right upper extremity is increasing. HEENT: Head, ears, eyes, nose, mouth, and throat are normal. Breath sounds heard on both sides. CARDIAC: Demonstrated sinus rhythm with no murmurs. ABDOMEN: Flat, soft, nontender. EXTREMITIES: Normal. NEUROLOGIC: He is at bed rest and has no focal neurologic deficits. IMPRESSION: 1. Schizophrenia. 2. Catatonia. 3. History of dehydration. PLAN: Deferred to psychiatry.
[2016-11-01] MEDS: ATORVASTATIN 20 MG TAB PO SCH (20:57)
[2016-11-01] MEDS: PALIPERIDONE 6 MG TAB.ER.24 PO SCH (20:57)
[2016-11-02] MEDS: TAMSULOSIN 0.4 MG CAP.ER.24H PO SCH (09:28)
[2016-11-02] MEDS: AMOXIC-POT CLAV 875-125MG 1 EACH TAB PO SCH ×2 (09:28→21:46)
--- NOTE | 2016-11-02 12:53 | P.PN ---
Progress Note - Text Interval history: Patient is seen with one-to-one staff present. He is seen in his room lying in bed with the covers over his body. When I asked him to remove the covers from his face so that I can see him he does not. His answers to questions are very brief. He seems to relay that he is not eating well but per staff he did eat breakfast. He is currently on invega. Mental status exam: He is found lying in bed with covers over his whole body. He when not move the covers off of his face when asked to do so. His answers to questions are very brief. When asked about thoughts of harm to self he denies, then reports that he has thoughts of harm to others, when asked regarding who he has thoughts of harm to he says himself. He does not show any agitation. Plan: Maintain current psychotropic medication. Maintain one-to-one precautions at this time. We'll continue to monitor for any medication side effects and continue to cover this patient for Dr. Peterson through the weekend.
[2016-11-02] MEDS: ATORVASTATIN 20 MG TAB PO SCH (21:46)
[2016-11-02] MEDS: PALIPERIDONE 6 MG TAB.ER.24 PO SCH (21:46)
[2016-11-03] MEDS: AMOXIC-POT CLAV 875-125MG 1 EACH TAB PO SCH ×2 (08:31→21:25)
[2016-11-03] MEDS: TAMSULOSIN 0.4 MG CAP.ER.24H PO SCH (08:31)
--- NOTE | 2016-11-03 11:42 | P.GSCN ---
History of Present Illness Consult date: 11/03/16 Reason for Consult: Urinary retention Requesting physician: Morales Peterson History of present illness: The patient is a 61-year-old white male hospitalized with dehydration and schizophrenia. He has been noted to have urinary retention, and was seen several days ago by Dr. Strange for this reason. He is currently receiving tamsulosin, and was being straight catheterized. However, he has been able to void much better for the past 24 hours, and it appears to the nurses that he is emptying his bladder adequately based on bladder scan volumes. Review of Systems - Genitourinary Denies dysuria, Denies hematuria - Psychiatric Reports as per HPI Past Medical History Past Medical History: Hyperlipidemia History of Any Multi-Drug Resistant Organisms: None Reported Past Surgical History: Orthopedic Surgery Additional Past Surgical History / Comment(s): bilateral ankles, removal of skin cancer on l [employer] Past Psychological History: Anxiety, Bipolar, Depression, Schizoaffective Disorder Smoking Status: Current some day smoker Past Alcohol Use History: None Reported Past Drug Use History: None Reported - Past Family History Father History Unknown: Yes Medications and Allergies Home Medications Medication Instructions Recorded Confirmed Type Simvastatin [Zocor] 40 mg PO HS 02/09/16 10/31/16 History Paliperidone Palmitate [Invega 410 mg IM Q90D 09/04/16 10/31/16 History Trinza] Acetaminophen with Codeine 1 tab PO TID PRN 10/13/16 10/31/16 History [Tylenol w/codeine #4] Diazepam [Valium] 5 mg PO TID PRN 10/13/16 10/31/16 History Allergies Allergy/AdvReac Type Severity Reaction Status Date / Time NSAIDS (Non-Steroidal AdvReac Nausea Verified 10/13/16 19:54 Anti-Inflamma Surgical - Exam Vital Signs Temp Pulse Resp BP Pulse Ox 98.2 F 95 16 118/57 97 10/31/16 17:19 10/31/16 17:19 10/31/16 17:19 10/31/16 17:19 10/31/16 17:19 - General well developed, well nourished, no distress - Abdomen Abdomen: soft - Genitourinary normal penis with no external lesions, testicles present Results - Labs 11/01/16 09:22 11/01/16 09:22 Assessment and Plan (1) Retention of urine Status: Acute Plan: Continue tamsulosin. If bladder scans show residuals consistently below 150 mL , I would suggest it would then be unnecessary to continue performing them unless his voiding symptoms worsen. Time with Patient: Less than 30
--- NOTE | 2016-11-03 13:56 | P.PN ---
Progress Note - Text Interval history: Patient seen in cross coverage today for Dr. Peterson. He was seen in the hallway not long prior to the evaluation walking with staff member. Per staff he has done approximately 3 blocks today. He says he is eating " too much." He seems to relay he didn't sleep that well last night. Mental status exam: He is alert and found lying in bed today. He was seen just prior walking in the hallway with staff. His answers are brief. He describes his mood as "fair to middlin'" he does not respond when asked about thoughts of harm to self or others. He does not verbalize any hallucinations. He does not show any agitation. Plan: Patient will be maintained on current psychotropic medication regimen. We will monitor for any adverse psychotropic medication side effects. Dr. Peterson to resume care this patient starting tomorrow.
[2016-11-03] MEDS: PALIPERIDONE 6 MG TAB.ER.24 PO SCH (21:25)
[2016-11-03] MEDS: ATORVASTATIN 20 MG TAB PO SCH (21:25)
[2016-11-03] MEDS ORDERED: AMOXIC-POT CLAV 400-57MG/5ML 50 ML BOTTLE PO SCH (22:00)
[2016-11-03] MEDS: AMOXIC-POT CLAV 400-57MG/5ML 50 ML BOTTLE PO SCH (22:50)
[2016-11-04] MEDS: TAMSULOSIN 0.4 MG CAP.ER.24H PO SCH (08:26)
--- NOTE | 2016-11-04 09:16 | P.PN ---
Progress Note - Text Interval history: The patient is found in the hallway he very slowly follows me to an interview room. He has one-to-one supervision. He is ambulating with a walker and requires frequent redirection to get into the office. He has no spontaneous verbal interaction. Staff report that the patient seems to have times where he does better and in others were he appears more psychotic. He was seen by urology Flomax has been continued its documented that the patient has been voiding on his own more successfully. Mental status exam: The patient is alert he is a frail-appearing male. He is dressed in 2 hospital gowns he is ambulate slowly with a walker. As he walks he moves the walker in a twisting motion. He demonstrates significant psychomotor slowing. He cooperates with approximately half of the questions asked of him. Most times the questions need to be asked twice to get a response and for him to make eye contact. He is oriented to day the week is being rather than Friday. He correctly names the month is October in the years 2017 he is aware that he is in the hospital. He demonstrates no verbal or physical aggressiveness. Insight and judgment are poor. He does demonstrate resting tremor of his right upper extremity. Plan: The patient will continue on his current medication. He requires more time to stabilize. His documented that the urinary retention is improving we will discuss further in team. The patient is being ambulated frequently with a walker. We will continue the one-to-one supervision due to fall risk and acute psychosis. Vital signs reviewed.
[2016-11-04] MEDS: AMOXIC-POT CLAV 400-57MG/5ML 50 ML BOTTLE PO SCH ×2 (10:17→22:25)
[2016-11-04] MEDS: ATORVASTATIN 20 MG TAB PO SCH (21:59)
[2016-11-04] MEDS: PALIPERIDONE 6 MG TAB.ER.24 PO SCH (21:59)
[2016-11-05] MEDS: TAMSULOSIN 0.4 MG CAP.ER.24H PO SCH (09:15)
[2016-11-05] MEDS: AMOXIC-POT CLAV 400-57MG/5ML 50 ML BOTTLE PO SCH ×2 (09:21→22:02)
--- NOTE | 2016-11-05 11:11 | P.PN ---
Progress Note - Text Interval history: The patient is found in his room he is lying in bed awake. He has one-to-one supervision at bedside. Staff report that the patient has been less interactive today. Fortunately he continues to be able to void urine without use of straight cath. He was reported to have eaten half of his breakfast. Last bowel movement was yesterday morning. The patient offers no spontaneous speech or eye contact. After several attempts he will make eye contact and offer one-word phrases. Vital signs reviewed. Mental status exam: The patient is alert he is lying in bed he has no spontaneous speech or eye contact. When his name is called 2-3 times he will make some brief eye contact. He offers a limited number of brief one-word answers. He speaks very softly and oftentimes I need to ask him to repeat himself so his answer can be heard. He demonstrates a tremor of his right upper extremity at rest. He does not answer questions related to auditory or visual hallucinations or thoughts of self-harm or harm to others. He remains oriented he states the correct day month year and current location. Affect is flat except for brief smiling wants. Insight and judgment are impaired. He demonstrates no verbal or physical aggressiveness. Plan: The patient will continue his current medication he is making very little progress psychiatrically. Urinary retention seems to be improved. We will continue one-to-one supervision for fall risk and assisting him with ADLs as he would not meet these on his own. At this point I would've expected more improvement psychiatrically speaking we will consult neurology because of this mental status change to be comprehensive. Again the patient does have a baseline of psychosis but he functions at a much higher level than his current state. We will continue to monitor him for safety. The patient is not appropriate for discharge from the hospital as he would quickly decompensate further.
[2016-11-05] MEDS: PALIPERIDONE 6 MG TAB.ER.24 PO SCH (22:01)
[2016-11-05] MEDS: ATORVASTATIN 20 MG TAB PO SCH (22:01)
[2016-11-05] MEDS: traZODone HCL 50 MG TAB PO PRN (22:15)
[2016-11-05] MEDS: ACETAMINOPHEN TAB 325 MG TAB PO PRN (22:15)
[2016-11-06] MEDS: TAMSULOSIN 0.4 MG CAP.ER.24H PO SCH (08:16)
[2016-11-06] MEDS: AMOXIC-POT CLAV 400-57MG/5ML 50 ML BOTTLE PO SCH ×2 (08:16→21:13)
--- NOTE | 2016-11-06 10:30 | P.PN ---
Progress Note - Text Interval history: The patient is found in his room he seated upright in a chair. His health and safety specialist is seated beside him. The patient provides no verbal input today he does demonstrate some head nodding in response to some questions. His sitter stated that the patient had been verbalizing much more yesterday compared to today. He is making less effort in getting up to toilet. She states he did eat his breakfast in its entirety but it had to be fed to him. Mental status exam: The patient has a disheveled appearance he is dressed in hospital attire he seated upright in a chair he is noted to have a very course tremor of his right upper extremity this does chain during the course of our conversation. He provides no verbal responses. He does shake his head yes and no with a few questions asked. He makes no eye contact. He is demonstrating no verbal or physical aggressiveness. Insight and judgment are poor. It is presumed he continues to experience symptoms of psychosis. At this point today he is not participating in his own activities of daily living. The health and safety specialist stated the patient had urinated his pants rather than getting up to toilet he is not invested in his own hygiene and had to be fed breakfast this morning. Plan: The patient will continue on the invega as written. He continues to be on Augmentin are all appears to be his last dose. Urology input is appreciated it appears that the patient is able to avoid. We are waiting neurology input regarding his current mental status. The tremor of his right upper extremity seems worse than I have seen in the outpatient setting. This can be incited by antipsychotic medication. We also want to rule out any possibility that he is having [id number] seizure activity. We will continue to monitor him for safety he is not appropriate for discharge at this time.
--- NOTE | 2016-11-06 10:55 | CONS ---
DATE OF CONSULTATION: 11/05/2016 CHIEF COMPLAINT: Altered mental status. HISTORY OF PRESENT ILLNESS: The patient is a 61-year-old male who is being evaluated today on 11/05/2016 by the Neurology Service per the request of Dr. Peterson for altered mental status. The patient has an extensive history of psychiatric disorders and was initially admitted to the [facility] for acute psychosis. He was then transferred to the medical floor for treatment of pneumonia and urinary retention. The patient was also dehydrated. He was cleared to return to the psych unit but he was having some episodes of altered mental status and a neurology consultation was obtained. The patient at the time of my evaluation is lying in his bed and he is quite awake and oriented. He denies any headache or dizziness. PAST MEDICAL HISTORY: Dyslipidemia, schizoaffective disorder, depression, bipolar disorder, anxiety disorder, history of orthopedic surgeries. SOCIAL HISTORY: The patient is a former smoker. He denies any alcohol or drug use. FAMILY HISTORY: Noncontributory. HOME MEDICATIONS: Reviewed in the chart. ALLERGIES: NSAID. REVIEW OF SYSTEMS: As mentioned above and otherwise negative. PHYSICAL EXAM: Vital signs show a temperature of 98.1, pulse 69, respirations 12, blood pressure 105/59. GENERAL APPEARANCE: The patient is a well-developed, elderly male who appears to be in no acute distress. HEENT: Normocephalic, atraumatic, no facial asymmetry is seen. Neck is supple with no masses felt. CARDIOVASCULAR: Regular rate and rhythm. ABDOMEN: Nontender, nondistended. EXTREMITIES: Showed no edema or clubbing. NEUROLOGICAL EXAM: The patient is awake and oriented x3. He follows commands appropriately. No lateralizing weakness is seen. Sensory exam was normal to light touch in all 4 extremities. No facial asymmetry is noticed on cranial nerve testing. INVESTIGATION: His CBC and TSH were normal. His comprehensive metabolic profile was normal except for mild hyperglycemia at 130. IMPRESSION: 1. Altered mental status, improved. 2. Likely resolving acute encephalopathy, infectious-type. 3. Psychosis. RECOMMENDATION: The patient's altered mental status appears to have resolved. He is oriented x3 and follows commands appropriately. He was likely having some encephalopathy, given his recent pneumonia and dehydration. Obviously, he is also on multiple psychiatric medications that can cause drowsiness and confusion. No further inpatient neurological work-up is needed. Continue psychiatric care. I will continue to follow with you as needed. Thank you for allowing me to participate in the care of your patient. If you have any questions, please feel free to contact me.
[2016-11-06] MEDS: ATORVASTATIN 20 MG TAB PO SCH (21:10)
[2016-11-06] MEDS: PALIPERIDONE 6 MG TAB.ER.24 PO SCH (21:10)
[2016-11-06] MEDS: ACETAMINOPHEN TAB 325 MG TAB PO PRN (21:21)
[2016-11-06] MEDS: traZODone HCL 50 MG TAB PO PRN (21:23)
[2016-11-07] MEDS: AMOXIC-POT CLAV 400-57MG/5ML 50 ML BOTTLE PO SCH ×2 (07:59→21:21)
[2016-11-07] MEDS: TAMSULOSIN 0.4 MG CAP.ER.24H PO SCH (07:59)
[2016-11-07 09:38] LABS: ALT 26 U/L (21-72); AST 19 U/L (17-59); Alkaline Phosphatase 84 U/L (38-126); Anion Gap 11 mmol/L; Blood Urea Nitrogen 19 mg/dL (9-20); Calcium 9.4 mg/dL (8.4-10.2); Carbon Dioxide 28 mmol/L (22-30); Chloride 104 mmol/L (98-107); Glucose 100 mg/dL (74-99); Non-African American GFR(MDRD) >60 (>60 ml/min/1.73 sqM); Potassium 4.4 mmol/L (3.5-5.1); Sodium 143 mmol/L (137-145); Total Bilirubin 0.7 mg/dL (0.2-1.3); Total Protein 7.3 g/dL (6.3-8.2)
--- NOTE | 2016-11-07 11:20 | P.PN ---
Progress Note - Text Interval history: The patient is found in his room he again appears withdrawn demonstrating negative symptoms of psychosis. He makes no eye contact. drafter assistant is at bedside. She states he rested throughout the night area the patient has been less willing to ambulate with a walker and staff of been using a wheelchair to get him to the dining room. He remains compliant with medication. Neurology consultation reviewed. Lab work reviewed. Mental status exam: The patient is lying in bed he makes no eye contact he has no spontaneous responses he answers no questions today when seen this morning. Staff report that he does participate in some conversations during the daytime. He has been less engaged in walking activity using the walker staff are encouraged to promote use of the walker. Insight and judgment are poor he continues to demonstrate symptoms of psychosis with negative features. He demonstrates no verbal or physical aggressiveness. There seemed to be less tremor activity when lying in bed this morning involving his right upper extremity. Plan: The patient will continue on the invega we will consider titrating the dose again. We will continue to provide assistance with ADLs and monitor him for safety. I did have a conversation with the patient's brother we discussed the possibility of the patient needing a guardian and alternative placement as prior to this hospitalization he was independently living. He requires continued psychiatric hospitalization due to his inability to participate in his activities of daily living his continued symptoms of psychosis. Vital signs reviewed.
--- NOTE | 2016-11-07 15:10 | P.PN ---
Progress Note - Text 61-year-old being seen on the mental health unit at the request of nursing staff. Has a sitter at the bedside. Upon entering the room the patient does make eye contact. Patient's cooperative will sit up on the edge of the bed on his own is able to use a walker and able to ambulate from the bed to the doorway. Currently patient's cooperative and pleasant. A rectal exam was done per nursing reported Dr. Card notified the nursing staff was a ? report of positive stool for occult blood rectal exam showed no rectal bleeding no hemorrhoids internal and external brown stool noted in the rectal vault hemoglobin drawn on the ninth was 13. Nursing reports the patient has not had any frequent stooling patient is not having any abdominal pain will follow
[2016-11-07] MEDS: NAPHAZOLINE-PHENIRA 0.025-0.3% DROPS 15 ML BTL BOTH EYES SCH ×2 (16:31→21:25)
[2016-11-07] MEDS: ATORVASTATIN 20 MG TAB PO SCH (21:22)
[2016-11-07] MEDS: PALIPERIDONE 6 MG TAB.ER.24 PO SCH (21:22)
[2016-11-07] MEDS: ACETAMINOPHEN TAB 325 MG TAB PO PRN (22:04)
[2016-11-08 08:48] LABS: Basophils % (A) 1 %; CH 32.5; Eosinophils # (A) 0.1 k/uL (0-0.7); Eosinophils % (A) 1 %; HCT 42.9 % (39.0-53.0); HDW 2.92; HGB 14.2 gm/dL (13.0-17.5); Luc # (Auto) 0.16; Luc % (Auto) 3; Lymphocytes # (A) 1.2 k/uL (1.0-4.8); Lymphocytes % (A) 23 %; MCH 31.8 pg (25.0-35.0); MCHC 33.1 g/dL (31.0-37.0); MCV 96.1 fL (80.0-100.0); Mean Platelet Volume 6.8; Monocytes # (A) 0.3 k/uL (0-1.0); Monocytes % (A) 5 %; Neutrophils # (A) 3.7 k/uL (1.3-7.7); Neutrophils % (A) 67 %; RBC 4.46 m/uL (4.30-5.90); RDW 12.2 % (11.5-15.5); WBC 5.4 k/uL (3.8-10.6); WBC (Perox) 5.41
[2016-11-08] MEDS: TAMSULOSIN 0.4 MG CAP.ER.24H PO SCH (09:13)
[2016-11-08] MEDS: NAPHAZOLINE-PHENIRA 0.025-0.3% DROPS 15 ML BTL BOTH EYES SCH ×4 (09:14→20:31)
--- NOTE | 2016-11-08 10:29 | P.PN ---
Progress Note - Text Interval history: The patient is found in his room with 1:1 sitter. Patient responds to name but only answers with a grunt. Shakes his head no to question if he is being hurt. He stares off when asked if hearing voices. Remains essentially unchanged. Little eye contact, no spontaneous speech. Requires staff to feed him this morning, use WC instead of walker today. Mental status exam: The patient is lying in bed he makes no eye contact he has no spontaneous speech, no answers but makes noise or shakes head. Staff report that he does participate in some conversations during the daytime. He has been less engaged in walking activity using the walker staff are encouraged to promote use of the walker. Insight and judgment are poor he continues to demonstrate symptoms of psychosis with negative features. He demonstrates no verbal or physical aggressiveness. Plan: The patient will continue on the invega we will consider titrating the dose again. We will continue to provide assistance with ADLs and monitor him for safety. He requires continued psychiatric hospitalization due to his inability to participate in his activities of daily living his continued symptoms of psychosis. Vital signs reviewed.
[2016-11-08] MEDS: PALIPERIDONE 6 MG TAB.ER.24 PO SCH (20:31)
[2016-11-08] MEDS: ATORVASTATIN 20 MG TAB PO SCH (20:32)
[2016-11-09] MEDS: ACETAMINOPHEN TAB 325 MG TAB PO PRN (03:10)
[2016-11-09] MEDS: TAMSULOSIN 0.4 MG CAP.ER.24H PO SCH ×3 (09:17→18:44)
[2016-11-09] MEDS: NAPHAZOLINE-PHENIRA 0.025-0.3% DROPS 15 ML BTL BOTH EYES SCH ×4 (09:17→20:58)
--- NOTE | 2016-11-09 18:26 | PN ---
DATE OF SERVICE: 11/09/2016 CHIEF COMPLAINT: The patient was admitted due to increasing problems with psychosis. He had disorganized behavior. He was confused, poorly responsive and felt to possibly be exhibiting catatonia. INTERVAL HISTORY: Patient continues the same as he has for the last several days. He mostly is mute. He will make minimal efforts to not be active. Just a short while ago he indicated to staff that he wanted to get up from bed. He got up in the chair for a brief period of time and then went back to bed. He has been mostly mute. He does not respond in any way when I interviewed him. He has been sleeping on and off through the day. He has not had any behavioral issues. He needs assistance with ADLs. He has not had change in his general health. He tolerates his psychotropic medications. MENTAL STATUS: Patient was in bed lying down. He appeared to be awake, though he did not respond in any way to my being there. He just seemed to stare off into the distance. He showed no movements or facial expression. There were no clear signs of a distress. ASSESSMENT: I will continue the current diagnosis and treatment plan. We will continue to make efforts to support the patient for his safety. I will continue Invega 6 mg at bedtime as his primary psychotropic medication. He has been on Invega Sustenna though it is not clear when he received his last dose. Dr. Peterson did raise concern for catatonic features. He indicated that the patient did not respond to benzodiazepines. However, it is not clear what the dosing may have been as catatonia typically may require dosing of lorazepam in the range of 2 to 4 mg every 2 to 4 hours. Whether or not he has a superimposed depression remains to be seen, as another treatment factor. Clozapine may be an additional consideration. We will continue to provide support. I will review his case with Dr. Peterson who has followed the patient for an extended period of time. [facility]
[2016-11-09] MEDS: PALIPERIDONE 6 MG TAB.ER.24 PO SCH (20:58)
[2016-11-09] MEDS: ATORVASTATIN 20 MG TAB PO SCH (20:58)
[2016-11-10] MEDS: NAPHAZOLINE-PHENIRA 0.025-0.3% DROPS 15 ML BTL BOTH EYES SCH ×4 (09:40→21:56)
[2016-11-10] MEDS: TAMSULOSIN 0.4 MG CAP.ER.24H PO SCH (09:40)
[2016-11-10 09:50] LABS: ALT 19 U/L (21-72); AST 19 U/L (17-59); Alkaline Phosphatase 70 U/L (38-126); Anion Gap 12 mmol/L; Blood Urea Nitrogen 15 mg/dL (9-20); Calcium 9.2 mg/dL (8.4-10.2); Carbon Dioxide 26 mmol/L (22-30); Chloride 102 mmol/L (98-107); Glucose 185 mg/dL (74-99); Non-African American GFR(MDRD) >60 (>60 ml/min/1.73 sqM); Potassium 3.9 mmol/L (3.5-5.1); Sodium 140 mmol/L (137-145); Total Bilirubin 0.7 mg/dL (0.2-1.3); Total Protein 6.7 g/dL (6.3-8.2)
--- NOTE | 2016-11-10 16:38 | PN ---
DATE OF SERVICE: 11/10/2016 CHIEF COMPLAINT: The patient was admitted due to increasing problems with psychosis. He had disorganized behavior. He was confused, poorly responsive and felt to possibly be exhibiting catatonia. INTERVAL HISTORY: Patient has been doing fair. He continues to be mostly quite withdrawn and needing assistance in most areas of his functioning. It is noteworthy that his visited yesterday evening. He was observed to be talking in a fairly animated way. He held hands with his . He showed increased psychomotor activity in a more normal range. Other than that he has been mostly quiet. He will sit with his head down. He does not give much eye contact. He does not respond much to others. He is cooperative with staff. He does not make much effort on his own in most areas of his functioning. He sleeps well. MENTAL STATUS: Patient was in the kincaid with staff. Helping him in a wheelchair. He sat in a slumped posture with his head down. He did not give any eye contact. He did respond in any way. He did not show any change in facial expression. He pretty much had a limp posture. It was difficult to say if he was distressed in any way. ASSESSMENT: I will continue the current diagnosis and treatment plan. Continue psychotropic medications the same. Lab work from this morning included a comprehensive metabolic profile that was remarkable only for an elevated glucose 185. We will continue to focus on stabilization. SETH
[2016-11-10] MEDS: PALIPERIDONE 6 MG TAB.ER.24 PO SCH ×2 (21:56→22:27)
[2016-11-10] MEDS: ATORVASTATIN 20 MG TAB PO SCH (21:56)
[2016-11-11] MEDS: NAPHAZOLINE-PHENIRA 0.025-0.3% DROPS 15 ML BTL BOTH EYES SCH ×4 (10:22→20:37)
[2016-11-11] MEDS: TAMSULOSIN 0.4 MG CAP.ER.24H PO SCH (10:23)
--- NOTE | 2016-11-11 11:44 | P.PN ---
Progress Note - Text The patient is found in his room lying in bed. He has a safety lead at bedside. The patient is reluctant to open his eyes but eventually does. He initiates no conversation he provides no verbal responses to questions asked. For a very few questions he will shake his head no. Staff report that the patient will engage people verbally intermittently throughout the day. He continues to demonstrate some bizarre posturing of his arms. He has been able to get up to avoid. Intermittently staff will assist him in feeding he has been eating per staff report. The evening dose of invega was held due to hypotension area and he is capable of utilizing his walker but has been using a wheelchair at times. There is been no significant improvement in the patient's clinical status. Mental status exam: The patient has a disheveled appearance his beards overgrown his hairs unkempt. He is dressed in hospital attire he is lying in bed with a hospital gown covering the top half of his body but he is exposed from the waist down he is wearing a diaper type undergarment. After several requests he opens his eyes and then closes them again. He provides no verbal responses. After several questions were asked he then began gesturing with his right arm moving it up and down. He moves his mouth with a chewing motion he demonstrates some tremor of his right upper extremity at rest. It appears he continues to experience symptoms of psychosis with negative features. There is no aggressive behavior. He has been somewhat directable with staff. Plan: The patient's demonstrated little clinical improvement. We will continue to monitor him for safety. We will continue offering the oral invega. We will continue to track oral intake and output. Social work is asked to speak with the patient's brother and/or other family members to see how the patient has been interactive with them. The patient may require a structured supervised setting upon discharge if he does not demonstrate sufficient improvement. At this point he is incapable living on his own and requires 24-hour care.
[2016-11-11] MEDS: ATORVASTATIN 20 MG TAB PO SCH (20:36)
[2016-11-11] MEDS: PALIPERIDONE 6 MG TAB.ER.24 PO SCH (20:36)
[2016-11-12] MEDS: NAPHAZOLINE-PHENIRA 0.025-0.3% DROPS 15 ML BTL BOTH EYES SCH ×4 (10:35→21:53)
[2016-11-12] MEDS: TAMSULOSIN 0.4 MG CAP.ER.24H PO SCH (10:35)
--- NOTE | 2016-11-12 11:09 | P.PN ---
Progress Note - Text Interval history: The patient is found in his room lying in bed awake. He again has a health and safety tech at bedside. He provides a few verbal responses to questions asked today. He does spontaneously ask when he is going to be discharged back home. We discussed criteria for discharge and he provided no response or rebuttal. He reports that he ate this morning however staff report that he did not yet. He has been in toileting with assistance. Social work has been in contact with the patient's family to discuss discharge options. Mental status exam: The patient is lying in bed awake however he appears drowsy. Eye contact is poor speech is spontaneous twice during our session he often does not provide responses to questions asked and less the same question is asked several times. He demonstrates no agitated behavior. He is dressed in hospital attire he demonstrates some tremor of his upper extremity at rest that is not always present. Insight and judgment are impaired. It's likely that he continues to experience some symptoms of psychosis but he does not verbalize a description. There is no aggressive behavior. He did not provide answers to orientation questions. Staff report that the patient will participate more in his own care at different times of the day but without consistency. Plan: The patient will continue on the invega. He clearly is at a plateau and has not been's demonstrating further clinical improvement. Social work is asked to speak with the family again about getting guardianship and the patient will likely need care and extended care facility at least for rehab services. He is not appropriate to return home and would quickly decompensate in that environment. We will continue to monitor him for safety. Vital signs reviewed. We are watching his intake and output. He is being encouraged to ambulate with his walker.
[2016-11-12] MEDS: ATORVASTATIN 20 MG TAB PO SCH (21:53)
[2016-11-12] MEDS: PALIPERIDONE 6 MG TAB.ER.24 PO SCH (21:53)
--- NOTE | 2016-11-13 08:40 | P.PN ---
Progress Note - Text Interval history: Discuss patient in treatment team meeting, review of chart, discussion with Dr. Peterson yesterday, met patient in his room today. According to staff patient refused to go to breakfast after he got up and was walking with his walker. Patient lying in bed sitter present. The patient did not look at technical writer but kept his eyes open with her eyes rolling back at times. He did not speak but answered by shaking his head yes or no. Patient shook his head no that he did not want breakfast. He shook his head yes that he would consider lunch. Patient said no to any problems, pain. He has been in toileting with assistance. Social work has been in contact with the patient's family to discuss discharge options. Patient continues with minimal improvement in his mental status. Appears to be at a baseline that is lower than what it he was previously. Mental status exam: The patient is lying in bed awake, poor eye contact. No spontaneous speech. Nodding and shaking of head responding to questions. No agitated behavior. No tremors were noted today. No insight and judgment impaired Plan: The patient will continue on the invega. He clearly is at a plateau and has not been's demonstrating further clinical improvement. We will identify [facility] facilities once social security specialist has spoken to family about guardianship. He is not able to live on his own. We will continue to monitor him for safety. Vital signs reviewed. We are watching his intake and output. He is being encouraged to ambulate with his walker.
[2016-11-13] MEDS: TAMSULOSIN 0.4 MG CAP.ER.24H PO SCH (09:14)
[2016-11-13] MEDS: NAPHAZOLINE-PHENIRA 0.025-0.3% DROPS 15 ML BTL BOTH EYES SCH ×4 (09:14→22:01)
[2016-11-13] MEDS: PALIPERIDONE 3 MG TAB.ER.24 PO STA ×2 (11:12→12:30)
--- NOTE | 2016-11-13 11:27 | XR ---
EXAMINATION TYPE: XR chest 1V portable DATE OF EXAM: 11/13/2016 CLINICAL HISTORY: longterm placement TECHNIQUE: Single AP portable upright view of the chest is obtained. COMPARISON: Chest x-ray from October 24, 2016 FINDINGS: There is resolution of right basilar infiltrate. There is some chronic parenchymal scarrin g in the upper lungs bilaterally. No new suspicious focal airspace opacity, pleural effusion, or pneu mothorax is seen bilaterally. Cardiac silhouette size is within normal limits with atherosclerotic an d ectatic thoracic aorta. Osseous structures are demineralized. IMPRESSION: Interval Resolution of right lower lobe infiltrate, no new infiltrate is seen.
[2016-11-13] MEDS ORDERED: PALIPERIDONE 3 MG TAB.ER.24 PO ONE (21:00)
[2016-11-13] MEDS: ATORVASTATIN 20 MG TAB PO SCH (22:02)
[2016-11-14] MEDS: ACETAMINOPHEN TAB 325 MG TAB PO PRN (03:03)
[2016-11-14] MEDS: TAMSULOSIN 0.4 MG CAP.ER.24H PO SCH (09:52)
[2016-11-14] MEDS: NAPHAZOLINE-PHENIRA 0.025-0.3% DROPS 15 ML BTL BOTH EYES SCH ×4 (09:52→20:33)
--- NOTE | 2016-11-14 10:22 | P.PN ---
Progress Note - Text Interval history: The patient is found in his room he is lying in bed he has a product safety coordinator at bedside. The patient's eyes are open he makes brief eye contact. He provides no verbal responses to questions asked. He will provide some responses in the form of shaking his head yes or no but with a very low amplitude movement. It appears he ate some of his breakfast approximately 50% or less. He has been toileting with assistance. There is no report of any agitated behavior. Despite posing a variety of questions I cannot provoke a verbal response today. Mental status exam: The patient's a thin male appearing older than his stated age. His brandt is overgrown he is disheveled. He is dressed in hospital gown and wearing a diaper undergarment. For the most part eye contact is poor. He demonstrates no verbal or physical aggressiveness. He does have some tremor of his right upper extremity. In response to one question he raises his left arm and puts it back down, although he was not asked to do so. Affect remains flat. Insight and judgment are impaired. Plan: I did speak with social work. We are exploring extended care facility options for him. Social work has been in close contact with the patient's brother who is now applying for guardianship today. We will continue the medication as written. We will continue the one-to-one supervision for fall risk. We are exploring appropriate placement options upon discharge from the hospital. He is not appropriate for a lesser level of care at this time.
[2016-11-14] MEDS: ATORVASTATIN 20 MG TAB PO SCH (20:24)
[2016-11-14] MEDS ORDERED: PALIPERIDONE 6 MG TAB.ER.24 PO SCH (21:00)
[2016-11-15] MEDS: TAMSULOSIN 0.4 MG CAP.ER.24H PO SCH (08:25)
[2016-11-15] MEDS: NAPHAZOLINE-PHENIRA 0.025-0.3% DROPS 15 ML BTL BOTH EYES SCH ×4 (09:02→20:57)
--- NOTE | 2016-11-15 10:06 | P.PN ---
Progress Note - Text Interval history: The patient is with one-to-one staff he seated in a wheelchair being brought back from breakfast. He was interviewed in his room as he was seated in his wheelchair. Staff report that the patient's only consumed the Ensure supplement. He has not been assisting as much with ambulation. Nursing reports that the patient's blood pressure has been lower as well as his pulse. The invega was held last evening. The patient makes no eye contact when he is asked to make eye contact he will raise his head and briefly do so. He has no spontaneous speech. Mental status exam: The patient is a male appearing older than his stated age. He is disheveled he is dressed in hospital gowns he has a long overgrown brandt. Eye contact as noted above. He provides no verbal responses approximate 3 times a provided responses by shaking his head yes or no. He was able to follow some commands as I asked him to raise his left hand move his right foot and raises eyebrows he was able to respond to all 3 commands. He continues to demonstrate tremor of his right upper extremity. Despite several attempts to provoke verbal responses there were none. Insight and judgment poor. Presumably he continues to experience symptoms of psychosis. Plan: The patient continues to demonstrate no improvement and in fact in some areas he seems to be decompensating. In case the invega is contributing to hypotension I will reduce the dose to 3 mg at bedtime. He is on trazodone to help him sleep through the night. We will consider discontinuing the trazodone. Lab work was reviewed again there are no concerning abnormal values. We will continue to monitor his intake and output. He requires continued one-to-one staffing for fall risk and attendance to ADLs. Staff expressed a concern he may have a recurrent UTI and another UA has been ordered. We will continue to monitor him for safety. He is not appropriate for discharge home.
[2016-11-15] MEDS: ATORVASTATIN 20 MG TAB PO SCH (20:47)
[2016-11-15] MEDS: PALIPERIDONE 3 MG TAB.ER.24 PO SCH (20:47)
[2016-11-16] MEDS: TAMSULOSIN 0.4 MG CAP.ER.24H PO SCH (08:51)
[2016-11-16] MEDS: NAPHAZOLINE-PHENIRA 0.025-0.3% DROPS 15 ML BTL BOTH EYES SCH ×4 (08:51→20:51)
--- NOTE | 2016-11-16 09:22 | P.PN ---
Progress Note - Text Interval history: The patient is found in the hallway he is being pushed by one- to-one staff in his wheelchair down the kincaid. Staff reports that the patient ate 75% of his meal and he was able to do so on his own. He has ambulated in a very limited capacity in his room with support. The patient's spontaneously verbalizes the statement "when can I go home". I again covered criteria for discharge and goals that we would like to see him accomplish. He provided no other verbal responses and simply would stare. When asked if he was feeling confused he nodded his head yes. Mental status exam: The patient is seated upright in a wheelchair he is drinking water from a cup through a straw. Eye contact is fairly limited he will just stare. He provided one verbal statement but no responses to questions asked. He continues to demonstrate tremor of upper extremities. Insight and judgment are poor is presumed that he continues to experience symptoms of psychosis. He demonstrates no verbal or physical aggressiveness. He answers no orientation questions today. He provides no answers to other mental status exam questions. Plan: The patient will continue on his current medication we continue to provide support in the form of one-to-one supervision. We are monitoring his by mouth intake and output. He is encouraged to ambulate with a walker when possible. He is encouraged to feet himself. We are trying to provoke more verbal responses and some engagement in the milieu. Vital signs reviewed.
[2016-11-16 11:39] LABS: Appearance,Urine Clear (Clear); Bilirubin,Urine Negative (Negative); Glucose,Urine (UA) Negative (Negative); Ketones,Urine Negative (Negative); Leukocyte Esterase,Urine Trace (Negative); Mucus,Urine Rare /hpf; Nitrite,Urine Negative (Negative); Particle Count 3898; Protein,Urine Negative (Negative); RBC,Urine 13 /hpf (0-5); Specific Gravity,Urine 1.013 (1.001-1.035); Squamous Epithelial Cell,Urine <1 /hpf (0-4); UA Billing (MACRO vs. MICRO) MICRO; Urobilinogen,Urine <2.0 mg/dL (<2.0); WBC,Urine 4 /hpf (0-5)
[2016-11-16] MEDS: PALIPERIDONE 3 MG TAB.ER.24 PO SCH (20:40)
[2016-11-16] MEDS: ATORVASTATIN 20 MG TAB PO SCH (20:40)
[2016-11-17] MEDS: TAMSULOSIN 0.4 MG CAP.ER.24H PO SCH (09:23)
[2016-11-17] MEDS: NAPHAZOLINE-PHENIRA 0.025-0.3% DROPS 15 ML BTL BOTH EYES SCH ×4 (09:23→21:46)
--- NOTE | 2016-11-17 10:29 | P.PN ---
Progress Note - Text Interval history: The patient is found in his room he has a health and safety consultant at bedside. The health and safety consultant reports that the patient fed himself and he ate all of his breakfast. She reports that he adequately hydrated during breakfast. He continues to utilize the wheelchair and does not assist in using the walker. The patient's is lying in bed he is completely covered with a blanket including over his head. He provides brief answers to some questions asked. Mental status exam: The patient's was alert he is lying in bed he briefly makes eye contact. I had to uncover his head with a blanket. He reports his mood is good he indicates that he ate breakfast he indicates that he slept last night. When asked to name the day the week he states Friday. He continues to demonstrate tremor of his upper extremities. He is disheveled he is dressed in hospital attire. He initiates no spontaneous conversation for several questions he does stares back and provides no response. Insight and judgment remain impaired. We presume he continues to experience symptoms of psychosis. He demonstrates no verbal or physical aggressiveness. Plan: The patient has been able to tolerate the invega at the lower dose vital signs are improved he is eating better. He continues to demonstrate no aggressiveness. Otherwise clinically there is no improvement. He requires continued hospitalization with 24-hour care. He requires continued health and safety consultant monitoring.
[2016-11-17] MEDS: PALIPERIDONE 3 MG TAB.ER.24 PO SCH (21:45)
[2016-11-17] MEDS: ATORVASTATIN 20 MG TAB PO SCH (21:45)
[2016-11-18] MEDS: TAMSULOSIN 0.4 MG CAP.ER.24H PO SCH (09:51)
[2016-11-18] MEDS: NAPHAZOLINE-PHENIRA 0.025-0.3% DROPS 15 ML BTL BOTH EYES SCH ×4 (09:53→21:54)
--- NOTE | 2016-11-18 10:27 | P.PN ---
Progress Note - Text Interval history: The patient is found in his room he is lying in bed. Earlier this morning he was observed with staff in his room and also in the library eating breakfast. Staff report that he did ambulate with assistance to the bathroom. He did participate in eating breakfast but did not eat much of the meal. Upon entry to the room the patient makes brief eye contact when asked how he is doing he states "okay" afterwords he rolls his eyes up and shakes his head no for several minutes. He provided no other responses to questions asked he did not follow any commands. Mental status exam: The patient is a thin male he has a disheveled appearance he is wearing hospital attire. Eye contact was very limited. He does not engage in the session. He shakes his head from left to right during our conversation irrespective of the questions being asked. He is demonstrating no tremor as he is lying in bed. He demonstrates no verbal or physical aggressiveness. Insight and judgment are poor. He continues to appear to have symptoms of psychosis. Plan: The patient will continue on the invega at its current dose. He is not yet due for an invega systemic the until December 04. His blood pressure has fluctuated it does look low today. We continue to encourage oral hydration. I will draw a CBC with differential and complete metabolic panel again. We will continue to provide one-to-one supervision for safety. He is not appropriate for transition home we are exploring extended care facility placement.
[2016-11-18 10:50] LABS: Basophils % (A) 1 %; CH 31.6; CHCM 33.7; Eosinophils # (A) 0.1 k/uL (0-0.7); Eosinophils % (A) 1 %; HCT 40.6 % (39.0-53.0); HDW 2.74; HGB 14.1 gm/dL (13.0-17.5); Luc # (Auto) 0.15; Luc % (Auto) 3; Lymphocytes # (A) 1.1 k/uL (1.0-4.8); Lymphocytes % (A) 21 %; MCH 32.5 pg (25.0-35.0); MCHC 34.6 g/dL (31.0-37.0); MCV 93.9 fL (80.0-100.0); Monocytes # (A) 0.2 k/uL (0-1.0); Monocytes % (A) 4 %; Neutrophils # (A) 3.6 k/uL (1.3-7.7); Neutrophils % (A) 70 %; RBC 4.33 m/uL (4.30-5.90); RDW 11.8 % (11.5-15.5); WBC 5.2 k/uL (3.8-10.6); WBC (Perox) 5.84
[2016-11-18 11:18] LABS: ALT 20 U/L (21-72); AST 16 U/L (17-59); Alkaline Phosphatase 76 U/L (38-126); Anion Gap 11 mmol/L; Blood Urea Nitrogen 17 mg/dL (9-20); Calcium 9.1 mg/dL (8.4-10.2); Carbon Dioxide 27 mmol/L (22-30); Chloride 103 mmol/L (98-107); Glucose 107 mg/dL (74-99); Non-African American GFR(MDRD) >60 (>60 ml/min/1.73 sqM); Sodium 141 mmol/L (137-145); Total Bilirubin 0.8 mg/dL (0.2-1.3); Total Protein 6.7 g/dL (6.3-8.2)
[2016-11-18] MEDS: ATORVASTATIN 20 MG TAB PO SCH (21:54)
[2016-11-18] MEDS: PALIPERIDONE 3 MG TAB.ER.24 PO SCH (21:54)
[2016-11-19] MEDS: NAPHAZOLINE-PHENIRA 0.025-0.3% DROPS 15 ML BTL BOTH EYES SCH ×2 (09:41→13:36)
[2016-11-19] MEDS: TAMSULOSIN 0.4 MG CAP.ER.24H PO SCH (09:41)
[2016-11-19 09:58] LABS: Basophils % (A) 1 %; CH 31.4; CHCM 33.1; Eosinophils # (A) 0.1 k/uL (0-0.7); Eosinophils % (A) 1 %; HCT 39.6 % (39.0-53.0); HDW 2.72; HGB 13.8 gm/dL (13.0-17.5); Luc # (Auto) 0.15; Luc % (Auto) 3; Lymphocytes # (A) 0.9 k/uL (1.0-4.8); Lymphocytes % (A) 17 %; MCH 33.1 pg (25.0-35.0); MCHC 34.9 g/dL (31.0-37.0); Mean Platelet Volume 7.1; Monocytes # (A) 0.2 k/uL (0-1.0); Monocytes % (A) 4 %; Neutrophils % (A) 74 %; RBC 4.17 m/uL (4.30-5.90); RDW 11.7 % (11.5-15.5); WBC 5.4 k/uL (3.8-10.6); WBC (Perox) 5.64
--- NOTE | 2016-11-19 10:02 | P.PN ---
Progress Note - Text Interval history: The patient is found in his room he is lying in bed. He was observed earlier this morning coming from the dining room. Staff report that the patient did feed himself again he continues to not consistently help with ambulation getting to the restroom and continues to frequently use the wheelchair. Again he provides no verbal responses to questions being asked today. Mental status exam: The patient is alert he is lying in bed he provides no verbal responses. He is dressed in hospital attire. He provides brief eye contact. He shakes his head no answering one question and then he provides no further effort in answering other questions. He is lying calmly in bed there is no evidence of tremor or other psychomotor activity. Insight and judgment remain impaired. There is no verbal or physical aggressiveness. Again I asked him several questions throughout the session but was unable to provoke a verbal response. Plan: The patient will continue on his current medications. Recent lab work was reviewed it is essentially normal. Vital signs are reviewed we continue to work on placement options at an extended care facility.
[2016-11-19 10:23] LABS: ALT 20 U/L (21-72); AST 15 U/L (17-59); Alkaline Phosphatase 83 U/L (38-126); Anion Gap 12 mmol/L; Blood Urea Nitrogen 21 mg/dL (9-20); Carbon Dioxide 24 mmol/L (22-30); Chloride 106 mmol/L (98-107); Glucose 130 mg/dL (74-99); Non-African American GFR(MDRD) >60 (>60 ml/min/1.73 sqM); Potassium 4.3 mmol/L (3.5-5.1); Sodium 142 mmol/L (137-145); Total Bilirubin 0.5 mg/dL (0.2-1.3); Total Protein 6.5 g/dL (6.3-8.2)
[2016-11-19] MEDS ORDERED: NAPHAZOLINE-PHENIRA 0.025-0.3% DROPS 15 ML BTL BOTH EYES PRN (13:10)
[2016-11-19] MEDS: ATORVASTATIN 20 MG TAB PO SCH (20:31)
[2016-11-19] MEDS: PALIPERIDONE 3 MG TAB.ER.24 PO SCH (20:31)
[2016-11-20] MEDS: TAMSULOSIN 0.4 MG CAP.ER.24H PO SCH (07:55)
--- NOTE | 2016-11-20 10:14 | P.PN ---
Progress Note - Text Interval history: The patient is found in his room he is lying in bed. Upon approach the patient verbalizes he's okay and then he answers no further questions. Staff report that the patient a a small portion of his breakfast this morning only. He requires use of a wheelchair. He continues to regard one -to-one supervision in terms of fall risk. He requires staff at his side for ambulation. We have been communicating with the patient's brother who is his guardian regularly, I spoke with his guardian yesterday. Mental status exam: The patient is a frail-appearing male with an overgrown brandt and disheveled appearance he is dressed in hospital attire. Eye contacts is brief and staring in nature. He provides 1 brief verbal response and no others despite several questions being asked of him. He is lying in bed with no psychomotor agitation he demonstrates no tremor as he is lying in bed. He demonstrates no verbal or physical aggressiveness. Insight and judgment are poor. He does not appear hypomanic or manic. Plan: The patient will continue on his current medications the invega trinza would not have been due again until December 04. We continue to supplement with oral invega. We continue to address safety risk with one-to-one supervision. We are discussing placement options with the patient's brother who is guardian. The patient demonstrates no ability for caring for himself and requires continued hospitalization. He would decompensate further if discharged home. Continue with physical therapy evaluation and treatment. Because of his psychosis he has been significantly limited in terms of physical activity and appears deconditioned.
[2016-11-20] MEDS: PALIPERIDONE 3 MG TAB.ER.24 PO SCH (20:54)
[2016-11-20] MEDS: ATORVASTATIN 20 MG TAB PO SCH (20:55)
[2016-11-20] MEDS: traZODone HCL 50 MG TAB PO PRN (20:56)
[2016-11-20] MEDS: ACETAMINOPHEN TAB 325 MG TAB PO PRN (20:56)
[2016-11-21] MEDS: TAMSULOSIN 0.4 MG CAP.ER.24H PO SCH (09:42)
--- NOTE | 2016-11-21 10:56 | P.PN ---
Progress Note - Text Interval history: The patient is found in his room lying in bed he has a aviation safety equipment technician at bedside. The patient again provides an initial response when asked how he is doing and states "fine". He breaks eye contact he provides no other verbal responses. Prior to my session with him he did not eat his breakfast I did attempt asking numerous questions during our session he sat up then began eating his breakfast with his hand in a quick fashion. The physical therapy note was reviewed clearly he requires prompting and assistance with standing and efforts at ambulating. Mental status exam: The patient's lying in bed he is dressed in hospital attire. Eye contact is minimal. He provides one brief verbal response describing his mood is "fine" however this is not congruent to his clinical presentation. He demonstrates continued psychomotor slowing. He demonstrates continued poor insight and judgment. He answers no questions regarding his symptoms of psychosis. He provides no responses to questions relating to cognitive abilities and orientation. He follows no command request for me but appears he did with physical therapy. Plan: The patient will continue on his current medication we continue to look for appropriate placement for the patient as he requires 24-hour care any supervised structured environment. His brother who is his guardian has been working closely with social work. We will continue to monitor the patient for safety. He requires continued hospitalization.
[2016-11-21] MEDS: PALIPERIDONE 3 MG TAB.ER.24 PO SCH ×2 (18:35→18:42)
[2016-11-21] MEDS: ATORVASTATIN 20 MG TAB PO SCH ×2 (18:35→18:41)
[2016-11-22] MEDS: TAMSULOSIN 0.4 MG CAP.ER.24H PO SCH (08:04)
--- NOTE | 2016-11-22 10:04 | P.PN ---
Progress Note - Text Interval history: The patient is found in his room he is lying in bed. He continues to have one-to-one supervision. He answers a few questions briefly today than sits up and indicates he needs to go to the bathroom. Staff report that he did eat his breakfast today feeding himself. He continues to need support with ambulation. Staff report no other interval change. Mental status exam: The patient is a thin male appearing older than his stated age he has an overgrown brandt and is disheveled. He is dressed in hospital attire. Eye contact is intermittent and staring in nature when eye contact is made. He initiates no conversation today he provides several brief responses and then does not answer several other questions. He is demonstrating no tremor today. No verbal or physical aggressiveness is observed. As he kalia from bed he required some assistance such as his arm being held he ambulates with short steps. Insight and judgment are impaired. He provides no answers to orientation questions today. Affect is flat without any change in expression. Plan: The patient will continue on his current medication. We continue to explore ECF placement options. Vital signs reviewed. He continues to intermittently demonstrate hypotension. We continue to monitor his intake. He has been able to urinate. He requires continued 24-hour care.
[2016-11-22] MEDS: ATORVASTATIN 20 MG TAB PO SCH (20:11)
[2016-11-22] MEDS: PALIPERIDONE 3 MG TAB.ER.24 PO SCH (20:11)
[2016-11-23] MEDS: TAMSULOSIN 0.4 MG CAP.ER.24H PO SCH (08:27)
[2016-11-23] MEDS: ACETAMINOPHEN TAB 325 MG TAB PO PRN (14:09)
--- NOTE | 2016-11-23 19:31 | P.PN ---
Progress Note - Text Date of service: 11/23/2016 Chief complaint: "I feel better " Subjective: The patient has been seen today as follow-up, chart reviewed, case discussed with the treatment team. Patient reports his depression is intermittent with times feeling increasingly depressed and other times would feel this depressed. He reports still has intermittent suicidal thoughts but he denies any active plan or intention to hurt himself. Patient reports his asleep is still interrupted but he doesn't want to have any changes of his medication. Patient reports better appetite today and feeling more engagement in treatment. The patient has been seen in my office after he get dinner. The patient denies any manic symptoms including sustained period of time with elevated or irritable mood, impulsive or irrational behavior. The patient denies any auditory or visual hallucinations. Also the patient denies any paranoid ideation. Review of other systems: Patient denies any physical symptoms besides what has been mentioned above. No breathing problems, no chest pain reported today. Objective: Vitals has been reviewed. Mental status examination: The patient appeared stated age, poorly groomed and disheveled with long brandt. Patient was in wheelchair with very slow psychomotor activity. Speech was prompted, very slow. Mood is depressed with constricted affect. Thought form: goal-directed, linear, coherent. Thought content: Non-delusional, denies suicidal thoughts, denies homicidal thoughts, denies intentions or plans. Perception: Denies any auditory or visual hallucinations Attention: No impairment. Orientation: Patient patient was fully oriented to time place person and situation. Insight: Patient has limited insight about his psychiatric disorder. Judgment: Patient has limited judgment about his psychiatric treatment. Assessment: Schizophrenia Plan: Continue current management including psychiatric medications Invega 3 mg at bedtime and trazodone 50 mg as needed at the time. Continue inpatient psychiatric hospitalization for further monitoring and stabilization of psychiatric symptoms.
[2016-11-23] MEDS: ATORVASTATIN 20 MG TAB PO SCH (20:32)
[2016-11-23] MEDS: PALIPERIDONE 3 MG TAB.ER.24 PO SCH (20:32)
[2016-11-24 00:48] LABS: Amorphous Sediment,Urine Occasional /hpf; Appearance,Urine Cloudy (Clear); Bacteria,Urine Rare /hpf; Bilirubin,Urine Negative (Negative); Glucose,Urine (UA) Negative (Negative); Ketones,Urine Negative (Negative); Leukocyte Esterase,Urine Trace (Negative); Mucus,Urine Rare /hpf; Nitrite,Urine Negative (Negative); Particle Count 7363; Protein,Urine Negative (Negative); RBC,Urine 111 /hpf (0-5); Specific Gravity,Urine 1.014 (1.001-1.035); Squamous Epithelial Cell,Urine <1 /hpf (0-4); UA Billing (MACRO vs. MICRO) MICRO; Urobilinogen,Urine <2.0 mg/dL (<2.0); WBC,Urine 27 /hpf (0-5)
[2016-11-24] MEDS: TAMSULOSIN 0.4 MG CAP.ER.24H PO SCH (08:45)
[2016-11-24] MEDS: ACETAMINOPHEN TAB 325 MG TAB PO PRN (08:46)
--- NOTE | 2016-11-24 17:29 | P.PN ---
Progress Note - Text Date of service: 11/24/2016 Chief complaint: "I don't know " Subjective: The patient has been seen today as follow-up, chart reviewed, case discussed with the treatment team. The patient was seen today at his room, lying in his bed and there is one on one with him. Patient couldn't express his emotions and he responded to most of the questions by nodding his head. Patient denies any auditory or visual hallucinations and he stated that he feels somebody watching him but he couldn't explain or give any details. Patient stated he still feels depressed and he didn't answer question about feeling suicidal. He reports his asleep is very poor but reported has better appetite. Patient requested to have shaving of his brandt and mustache. Review of other systems: Patient denies any physical symptoms besides what has been mentioned above. No breathing problems, no chest pain reported today. Objective: Vitals has been reviewed. Mental status examination; The patient appeared older than stated age, poorly groomed and disheveled with brandt. Patient was in his bed with very slow psychomotor activity. Speech was prompted, very slow. Mood is depressed with constricted affect. Thought form: [place], thought blocking goal-directed, linear, coherent. Thought content: Feeling paranoid, Non-delusional, denies suicidal thoughts, denies homicidal thoughts, denies intentions or plans. Perception: Denies any auditory or visual hallucinations Attention: No impairment. Orientation: Patient patient was fully oriented to time place person and situation. Insight: Patient has limited insight about his psychiatric disorder. Judgment: Patient has limited judgment about his psychiatric treatment. Assessment: Schizophrenia Plan: Continue current management including psychiatric medications Invega 3 mg at bedtime for schizophrenia. Increase trazodone to 75 mg as needed at the time. Continue inpatient psychiatric hospitalization for further monitoring and stabilization of psychiatric symptoms.
[2016-11-24] MEDS ORDERED: traZODone HCL 50 MG TAB PO PRN (17:30)
[2016-11-24] MEDS: PALIPERIDONE 3 MG TAB.ER.24 PO SCH (20:39)
[2016-11-24] MEDS: ATORVASTATIN 20 MG TAB PO SCH (20:39)
[2016-11-25] MEDS: TAMSULOSIN 0.4 MG CAP.ER.24H PO SCH (09:34)
[2016-11-25] MEDS: FINASTERIDE 5 MG TAB PO SCH (10:08)
--- NOTE | 2016-11-25 10:11 | P.PN ---
Progress Note - Text Covering for Dr. Peterson. Interval history: Patient was discussed at treatment team meeting, chart reviewed, met with patient. Patient was found walking in the hallway with 1-1 staff. Patient had just taken a shower. Patient reported that he was fine. The patient had declined breakfast stating that he was not hungry. He continues to have one-to-one supervision. Patient asked answered one or 2 questions and then stared off not answering anything further. Mental status exam: The patient is a thin male appearing older than his stated age he has an overgrown brandt and is disheveled. Patient is walking dressed in hospital attire with a walker and staff behind him. He made brief eye contact and answered to questions then stared off into space. Patient does not initiate any conversation. no tremor is noted today, no verbal or physical aggression is observed. Insight and judgment are impaired. He provides no answers to orientation questions today. Affect is flat without any change in expression. Plan: The patient will continue on his current medication. We continue to explore ECF placement options. Vital signs reviewed. He continues to intermittently demonstrate hypotension, it was noted that he is on Flomax that can cause a lowering of blood pressure, so it was changed to proscar. We continue to monitor his intake. He has been able to urinate. He requires continued 24-hour care.
--- NOTE | 2016-11-25 12:11 | P.PN ---
Progress Note - Text After treatment team meeting received information that patient was denied longterm admission by state. Reviewed patient's care, he has a long history of schizophrenia and prior to this admission he had been able to live on his own. However patient is now at his baseline, psychiatrically. However patient requires care as she cannot take care of himself. He is receiving 1-1 care here on the psychiatric unit because of fall risk, not for psychiatric reason. Patient is minimally interacting with staff or with his family, when they are visiting. Today patient answered that he was fine but then did not answer other questions. He is able to shower but has to be directed as is the case for other activities. He needs some assistance when eating. Patient is not verbally or physically aggressive, there is no hostility, there is no behavior that requires continued psychiatric hospital admission. Patient is appropriate for longterm placement.
[2016-11-25] MEDS: PALIPERIDONE 3 MG TAB.ER.24 PO SCH (20:31)
[2016-11-25] MEDS: ATORVASTATIN 20 MG TAB PO SCH (20:31)
[2016-11-26] MEDS: FINASTERIDE 5 MG TAB PO SCH (08:23)
--- NOTE | 2016-11-26 12:16 | P.PN ---
Progress Note - Text Covering for Dr Peterson. Interval history: Patient was discussed at treatment team meeting, chart reviewed, met with patient. Discussion again revolved around placement. One RN thought that she had been approved for a two-week fpc placement but that could not be verified. Today patient was in bed, but not asleep. His breakfast tray was at his bedside and he had eaten 100%, staff said that when he got up this morning he went directly to the bathroom and urinated on his own. And stated he was going to have breakfast but went back to bed nurse reminded him about the breakfast tray being there he sat up and used his hands to feet himself. Patient responded to question how he was doing stating that he was doing fine, asked him if he knew what today's date was he gave a garbled answer but when asked specifically the month and the year he was able to give the correct month and year. Mental status exam: The patient is a thin male appearing older than his stated age he has an overgrown brandt and is disheveled. He made sustained eye contact and answered several questions. Patient does not initiate any conversation. no tremor is noted today, no verbal or physical aggression is observed. Insight and judgment are impaired. He provides no answers to orientation questions today. Affect is flat without any change in expression. Plan: The patient will continue on his current medication. We continue to explore ECF placement options. He is psychiatrically stable, no verbal or physical aggressive behavior, able to ambulate on own, initiate some activities. 1:1 for fall risk. We continue to monitor his intake. He requires continued 24-hour care.
[2016-11-26 14:49] VITALS: RESP 16
[2016-11-26] MEDS: PALIPERIDONE 3 MG TAB.ER.24 PO SCH (20:23)
[2016-11-26] MEDS: ATORVASTATIN 20 MG TAB PO SCH (20:23)
[2016-11-27 06:37] VITALS: TEMP 97.5
[2016-11-27] MEDS: FINASTERIDE 5 MG TAB PO SCH (09:36)
[2016-11-27] MEDS: ACETAMINOPHEN TAB 325 MG TAB PO PRN (10:14)
--- NOTE | 2016-11-27 11:27 | P.PN ---
Progress Note - Text Interval history: The patient is found in his room he continues to have one-to- one supervision. He does make eye contact briefly but longer than previous visits. He does offer some brief responses to questions asked. Dr. Castillo who covered the patient recently stated she had a conversation with him yesterday. Staff report that the patient's making more of an effort in ambulating and was able to feed himself this morning. The patient had no spontaneous speech he asked no questions. Mental status exam: The patient is awake he is lying in bed he is dressed in hospital gowns, he no longer has a long brandt as staff assisted with shaving. He is holding 2 pillows one on each side of him with his upper extremities. No tremulous activity is observed. He demonstrates no verbal or physical aggressiveness. Insight and judgment limited. He reports experiencing auditory hallucinations but does not describe a content he endorses no visual hallucinations. He states he feels safe. He maintains a flat affect. Plan: The patient will continue on his current medications. I do plan on restarting the Invega Sustenna December 04. We will continue the oral dose and provide supportive care. We continue to look for Sim[facility] options. Vital signs reviewed area he continues to require hospitalization at this point he would regress if sent home in this condition.
[2016-11-27] MEDS: PALIPERIDONE 3 MG TAB.ER.24 PO SCH (20:22)
[2016-11-27] MEDS: ATORVASTATIN 20 MG TAB PO SCH (20:22)
[2016-11-28] MEDS: FINASTERIDE 5 MG TAB PO SCH (08:07)
--- NOTE | 2016-11-28 11:05 | P.PN ---
Progress Note - Text Interval history: The patient is found in his room he is lying in bed. He continues have one-to-one supervision. Upon approach he opens his eyes he reports his mood is "okay". Again he provides limited responses to questions answered. Staff report that he did participate in feeding himself he has been making more efforts with ambulation. He reports not sleeping well last night due to bad dreams but he provides no specifics. Mental status exam: The patient is alert he closes his eyes at times but does respond to verbal prompting he is participating more in responding to questions. He is demonstrating no verbal or physical aggressiveness. Insight and judgment are impaired. Appearance is unchanged. He is dressed in hospital attire. He demonstrates no spontaneous speech today during our session. It is presumed that he continues to experience symptoms of psychosis. Plan: The patient will continue on his current medication. I plan to reinitiate Invega Sustenna which is due December 04. We will continue the oral dose until then. We continue to look for appropriate placement for him. We are awaiting approval for rehab placement. Vital signs reviewed. We will continue him on one-to-one supervision.
[2016-11-28] MEDS: ACETAMINOPHEN TAB 325 MG TAB PO PRN ×2 (12:43→17:51)
[2016-11-28] MEDS: ATORVASTATIN 20 MG TAB PO SCH (21:15)
[2016-11-28] MEDS: PALIPERIDONE 3 MG TAB.ER.24 PO SCH (23:15)
[2016-11-29 05:55] VITALS: BP 91/54; PULSE 80
[2016-11-29] MEDS: FINASTERIDE 5 MG TAB PO SCH (08:36)
[2016-11-29 08:41] VITALS: BMI 21.1
--- NOTE | 2016-11-29 09:41 | P.DS ---
Providers Date of admission: 10/31/16 16:31 Expected date of discharge: 11/29/16 Attending physician: Morales Peterson Consults: 10/31/16 16:13 Consult Physician Routine Consulting Provider: Ashish Card Consult Reason/Comments: follow up H&P Do you want consulting provider notified?: Yes 11/01/16 11:59 Consult Physician Routine Consulting Provider: Hema Sánchez Consult Reason/Comments: reconsult for urinary retention Do you want consulting provider notified?: Yes 11/05/16 11:50 Consult Physician Routine Consulting Provider: Vinay Gusman Consult Reason/Comments: Mental status change, eyes fluttering, and involuntary movements Do you want consulting provider notified?: Yes 11/15/16 06:49 Consult Physician Routine Consulting Provider: Ashish Card Consult Reason/Comments: Re-evaluate due to low blood pressure Do you want consulting provider notified?: Yes, Notify in am 11/23/16 21:15 Consult Physician Routine Consulting Provider: Ashish Card Consult Reason/Comments: psoriasis and skin ailment/redness Do you want consulting provider notified?: Yes 11/23/16 21:41 Consult Physician Routine Consulting Provider: Franky Tanner Consult Reason/Comments: psoriasis and skin irritation/condition Do you want consulting provider notified?: Yes Primary care physician: Stated None - Discharge Diagnosis(es) (1) Schizophrenia Current Visit: Yes Status: Acute Priority: High Hospital Course: Brief summary of admission note: This patient is a 61-year-old male familiar to my outpatient practice who was admitted to the hospital for acute symptoms of psychosis. The patient resented with a disorganized thought process , he demonstrated some catatonic features with bizarre posturing. He demonstrated an inability to care for himself. For full details please refer to the psychiatric evaluation dated 11/01/2016. Summary of hospital course: The patient did have a lengthy stay in the hospital please refer to the complete medical record for full detail. The patient was admitted to the mental health unit for acute symptoms of psychosis. Soon into that admission the patient appeared to be less medically stable and he was transferred to the general medical floor for hydration. He was diagnosed with pneumonia and subsequently treated for pneumonia. After those issues stabilized he was transferred back to our mental health unit. For the duration of his stay on our mental health unit we had to utilize one-to-one supervision due to fall risk and his bizarre behavior. The patient was placed on oral invega hoping to supplement his maintenance Depo injection. That medication was titrated to no further benefit. We trialed Haldol briefly and Cogentin which provided no further benefit and seemed to induce side effect. While on the medical floor he did experience urinary retention and required straight catheterization. Flomax was initiated and eventually this provided relief to the point of the patient being able to urinate on his own again. We decided to reinitiate the oral invega but at a lower dose. He did demonstrate some hypotension while on the mental health unit. He had been evaluated by physical therapy at least twice. The patient demonstrated no agitated behavior. The patient had become physically deconditioned and we realized he would benefit from inpatient physical subacute rehab upon discharge from this unit. The patient's brother Neel became his guardian and Neel was involved in treatment and discharge planning throughout the stay. Both myself and social work have discussed the treatment care plan with Neel numerous times. Mental status exam: The patient is a thin male appearing older than his stated age. He has a disheveled appearance. Hygiene is adequate. He is dressed in hospital attire. Eye contact is improving it is staring in nature. He initiates no spontaneous speech but does provide more answers to questions asked during our session. He likely continues to experience symptoms of psychosis but he demonstrates no verbal or physical aggressiveness and has been following direction. Insight and judgment are impaired. He provides no answers to orientation questions today. Yesterday he was oriented to place month and year. Affect is flat with no expression. He was observed this morning sitting up from a lying position and standing from a seated position. He does the slowly gait was observed he walks with no arm swing and with short shuffling steps. He demonstrates no flight of ideas or loose associations. He does not appear hypomanic or manic. Impressions 1. Schizophrenia 2. Resolved right lower lobe pneumonia, resolved urinary retention, history of back pain 3. Unable to independently live at this time and requires placement at a supervised structured setting for rehab services Plan: The patient will be discharged the mental health unit today he is going to be transferred to an extended care facility for subacute rehab services. He will continue on the oral invega 3 mg daily until December 04. At that time we will reinitiate Invega Sustenna 117 mg intramuscularly to be given in the deltoid muscle. We will continue with trazodone as needed for sleep. The patient's will follow with me in the outpatient setting however he will likely be seen by a mental health clinician at the rehab facility prior to our next visit in the office. The discharge plan has been discussed with the patient's guardian was agreeable. Patient Condition at Discharge: Stable Plan - Discharge Summary New Discharge Prescriptions: New Finasteride [Proscar] 5 mg PO DAILY #30 tab Paliperidone [Invega] 3 mg PO HS #4 tab Paliperidone Palmitate [Invega Sustenna] 117 mg IM ONCE #1 syringe traZODone HCL [Desyrel] 75 mg PO HS PRN #45 tab PRN Reason: INsomnia Continue Simvastatin [Zocor] 40 mg PO HS #30 Discontinued Paliperidone Palmitate [Invega Trinza] 410 mg IM Q90D Diazepam [Valium] 5 mg PO TID PRN PRN Reason: Anxiety Amoxic-Pot Clav 875-125Mg [Augmentin 875-125] 1 each PO Q12HR #14 tab Tamsulosin [Flomax] 0.4 mg PO PC-BRKFST #30 cap Acetaminophen Tab [Tylenol] 650 mg PO Q6HR PRN tab PRN Reason: for fever or pain 1-5 Haloperidol [Haldol] 2 mg PO BID tab Discharge Medication List Finasteride [Proscar] 5 mg PO DAILY #30 tab 11/29/16 [Rx] Paliperidone Palmitate [Invega Sustenna] 117 mg IM ONCE #1 syringe 11/29/16 [Rx] Paliperidone [Invega] 3 mg PO HS #4 tab 11/29/16 [Rx] Simvastatin [Zocor] 40 mg PO HS #30 11/29/16 [Rx] traZODone HCL [Desyrel] 75 mg PO HS PRN #45 tab 11/29/16 [Rx] Follow up Appointment(s)/Referral(s): Pamella Mccarthy MD [STAFF PHYSICIAN] - 1 Week Activity/Diet/Wound Care/Special Instructions: need to schedule out patient colonscopy with dr mccarthy
== END 2016-11-29 11:14 | DRG 885 ==
LOC: 3MHU 16:31
PROVIDERS: ADMIT Psychiatry & Neurology Psychiatry; ATTEND Psychiatry & Neurology Psychiatry
DX: F25.9 Schizoaffective disorder, unspecified (principal); G93.40 Encephalopathy, unspecified; J18.9 Pneumonia, unspecified organism; R45.851 Suicidal ideations; E78.5 Hyperlipidemia, unspecified; F17.200 Nicotine dependence, unspecified, uncomplicated; G24.01 Drug induced subacute dyskinesia; L40.9 Psoriasis, unspecified; R33.9 Retention of urine, unspecified; Z79.899 Other long term (current) drug therapy; Z85.828 Personal history of other malignant neoplasm of skin; Z87.01 Personal history of pneumonia (recurrent); Z91.81 History of falling
CPT/HCPCS: 71010; 80053; 81001; 82272; 82378; 84443; 85025; 87086

== ENCOUNTER 2017-06-03 11:03 | Day surgery (SDC) | payer BC, MEDICARE, OTHER ==
[2017-05-28 23:34] VITALS: BMI 27.2
[~2017-06-03 11:03] MED LIST changes: -INVEGA TRINZA IM ONE; +LACTATED RINGERS 1,000 ML IV SCH; +LIDOCAINE 1% 20 ML VIAL (10MG/ML) FOR IV START INTRADERMA PRN
[2017-06-03 12:02] VITALS: TEMP 97.1
[2017-06-03] MEDS ORDERED: PROPOFOL 10 MG/ML 20 ML VIAL IV ONE (12:49)
[2017-06-03] MEDS ORDERED: LIDOCAINE 1% INJ 10MG/ML (20 ML MDV) ONE (12:49)
[2017-06-03 13:26] VITALS: RESP 18
--- NOTE | 2017-06-03 13:38 | P.PCN ---
Date of Procedure: 06/03/17 Procedure(s) Performed: Procedure: 1. Esophagogastroduodenoscopy and biopsy. 2. Total colonoscopy. Preoperative diagnosis: Occult positive blood in the stools and history of polyps. Postoperative diagnosis: 1. Hiatal hernia and short segment of Swain's esophagus with no evidence of esophagitis or strictures. 2. Mild gastritis and duodenitis. 3. Sigmoid diverticulosis with no evidence of acute diverticulitis , strictures, polyps or cancer. Preparation: HalfLytely prep. Sedation: Was provided by anesthesia. Brief clinical history: The patient is a 61-year-old male who is referred for this evaluation because of finding of blood in his stools. The patient has history of polyps and had prior colonoscopies the last was around 5 years ago. He has occasional heartburn and has not had prior upper endoscopy. No other alarm symptoms. Procedure: With the patient on his left lateral decubitus position and after informed consent and adequate sedation, I passed the Olympus-GIF 160 video upper endoscope through the cricopharyngeus down the esophagus. The chester-GE junction was irregular and started around 32 cm from the incisors and the tubular esophagus extended for another 3 cm or so defining a segment of Swain' s esophagus. There were no evidence of esophagitis proximal to the GE junction or any abnormalities in the Swain's segment or any strictures. There was a 2- 3 cm hiatal hernia which was entered then the endoscope was advanced to the rest of the stomach which was insufflated with air and inspected in detail including the retroflex view in the cardia. There were minimal mottling and erythema in the antrum but no ulcers or erosions. Pyloric channel did not show any ulcers. Duodenal bulb, post bulbar area and descending duodenum showed minimal erythema and friability but no ulcers, erosions or bleeding. I obtained biopsies from the duodenum, antrum, and from the esophagus proximal and distal to the GE junction then the endoscope was withdrawn and I proceeded with the colonoscopy. Perianal area did not show any fissures or fistulas. There were no masses felt on digital rectal examination. The Olympus CFQ 160L video colonoscope was then inserted in the rectum in the usual fashion and advanced to the cecum. There were few diverticular orifices seen scattered in the sigmoid but I saw no evidence of acute diverticulitis or strictures. The mucosa appeared healthy. No polyps or tumors were seen or any obvious pathology. I retroflexed the endoscope in the rectum before the endoscope was withdrawn. The patient tolerated the procedure well. Plan: The patient was reassured. Will await pathology results. I anticipate repeating his upper endoscopy in 2-3 years and repeat his colonoscopy in around 5 years. For the finding of Hemoccult positive stools, I did not recommend further evaluation of the small bowel at this time and that can be kept as a contingency based on his course and blood counts. He will follow with you next week as planned and I will be happy to see in the future if needed.
[2017-06-03 13:47] VITALS: BP 97/64; PULSE 57
== END 2017-06-03 13:52 | disposition home or self-care (01) ==
LOC: ORWHC2ENDO 11:03
DX: K29.50 Unspecified chronic gastritis without bleeding (principal); K44.9 Diaphragmatic hernia without obstruction or gangrene; K22.70 Barrett's esophagus without dysplasia; K29.80 Duodenitis without bleeding; K57.30 Diverticulosis of large intestine without perforation or abscess without bleeding; R19.5 Other fecal abnormalities; Z86.010 Personal history of colon polyps; I10 Essential (primary) hypertension; M19.90 Unspecified osteoarthritis, unspecified site; E78.5 Hyperlipidemia, unspecified; N42.9 Disorder of prostate, unspecified; F20.9 Schizophrenia, unspecified; C44.90 Unspecified malignant neoplasm of skin, unspecified; Z88.6 Allergy status to analgesic agent; Z87.891 Personal history of nicotine dependence; Z79.52 Long term (current) use of systemic steroids; Z79.899 Other long term (current) drug therapy
CPT/HCPCS: 88305; 88342; 45378; 43239; J2001; J2704

== ENCOUNTER 2020-11-24 12:03 | Inpatient (IN) | payer MEDICARE, BC ==
--- NOTE | 2020-11-24 12:52 | ED ---
General Adult HPI - General Chief complaint: Psychiatric Symptoms Stated complaint: mental health Time Seen by Provider: 11/24/20 12:07 Source: patient, police, RN notes reviewed Mode of arrival: wheelchair Limitations: no limitations - History of Present Illness Initial comments: Patient is an agitated 65-year-old male presenting to the emergency department by police custody for mental health evaluation. They have been called on the patient 2 or 3 times in the last couple of days. Patient has been off his medications for the past year and a half. Patient is agitated and screaming and rambling on about drug trade and problems with family members. Difficult to redirect patient. - Related Data Home Medications Medication Instructions Recorded Confirmed Atorvastatin [Lipitor] 20 mg PO HS 02/13/17 11/24/20 Omeprazole 20 mg PO BID 11/24/20 11/24/20 traZODone HCL [Desyrel] 75 mg PO HS PRN 11/24/20 11/24/20 Allergies Allergy/AdvReac Type Severity Reaction Status Date / Time NSAIDS (Non-Steroidal AdvReac Nausea Verified 11/24/20 12:26 Anti-Inflamma Review of Systems ROS Statement: Those systems with pertinent positive or pertinent negative responses have been documented in the HPI. ROS Other: All systems not noted in ROS Statement are negative. Constitutional: Denies: fever Eyes: Denies: eye pain ENT: Denies: ear pain Respiratory: Denies: cough Cardiovascular: Denies: chest pain Endocrine: Denies: as per HPI Gastrointestinal: Denies: abdominal pain Genitourinary: Denies: dysuria Musculoskeletal: Denies: back pain Skin: Denies: rash Neurological: Denies: headache Past Medical History Past Medical History: Cancer, Hyperlipidemia, Osteoarthritis (OA), Pneumonia, Skin Disorder Additional Past Medical History / Comment(s): varicose veins, eczema, hx skin cancer History of Any Multi-Drug Resistant Organisms: None Reported Past Surgical History: Orthopedic Surgery Additional Past Surgical History / Comment(s): ORIF rt ankle and lower leg x 3- pins and screws/later removed, removal of skin cancer on lt scientology, guillaume cataracts Past Anesthesia/Blood Transfusion Reactions: No Reported Reaction Past Psychological History: Anxiety, Bipolar, Depression, Schizoaffective Disorder Smoking Status: Former smoker Past Alcohol Use History: Rare Past Drug Use History: None Reported - Past Family History Father History Unknown: Yes Mother Family Medical History: Cancer General Exam Limitations: no limitations General appearance: alert, in no apparent distress Head exam: Present: atraumatic Eye exam: Present: normal appearance, PERRL ENT exam: Present: normal oropharynx Neck exam: Present: normal inspection Respiratory exam: Present: normal lung sounds bilaterally Cardiovascular Exam: Present: regular rate, normal rhythm GI/Abdominal exam: Present: soft. Absent: tenderness Extremities exam: Present: normal inspection Neurological exam: Present: alert Psychiatric exam: Present: agitated Expanded Focused psych exam: Present: restlessness, flight of ideas Skin exam: Present: normal color, abrasion (Healing abrasion right knee) Course Vital Signs 11/24/20 12:06 Temperature 98.0 F Pulse Rate 95 Respiratory 18 Rate Blood Pressure 95/54 O2 Sat by Pulse 96 Oximetry Procedures - Restraint - Face to Face Restraint Occurrence 1 Patient's Immediate Situation: Endangers self safety, Endangers others' safety, Endangers staff safety Patient's Reaction to the Intervention: Uncooperative, Angry Patient's Medical & Behavioral Condition: Awake Need to Continue or Terminate Restraint or Seclusion: Continue Face to Face Eval of Restraint Date: 11/24/20 Face to Face Eval of Restraint Time: 12:52 Medical Decision Making - Medical Decision Making Patient seen by mental health services with plans for gastric admission or transfer. Positive clinical certificate completed. - Lab Data Result diagrams: 11/24/20 13:24 11/24/20 13:24 Lab Results 11/24/20 11/24/20 Range/Units 13:24 13:24 WBC 11.4 H (3.8-10.6) k/uL RBC 4.69 (4.30-5.90) m/uL Hgb 15.2 (13.0-17.5) gm/dL Hct 44.7 (39.0-53.0) % MCV 95.4 (80.0-100.0) fL MCH 32.5 (25.0-35.0) pg MCHC 34.1 (31.0-37.0) g/dL RDW 12.2 (11.5-15.5) % Plt Count 246 (150-450) k/uL MPV 7.3 Neutrophils % 82 % Lymphocytes % 10 % Monocytes % 5 % Eosinophils % 0 % Basophils % 0 % Neutrophils # 9.3 H (1.3-7.7) k/uL Lymphocytes # 1.2 (1.0-4.8) k/uL Monocytes # 0.6 (0-1.0) k/uL Eosinophils # 0.0 (0-0.7) k/uL Basophils # 0.0 (0-0.2) k/uL Sodium 148 H (137-145) mmol/L Potassium 5.4 H (3.5-5.1) mmol/L Chloride 104 (98-107) mmol/L Carbon Dioxide 24 (22-30) mmol/L Anion Gap 20 mmol/L BUN 25 H (9-20) mg/dL Creatinine 0.96 (0.66-1.25) mg/dL Est GFR (CKD-EPI)AfAm >90 (>60 ml/min/1.73 sqM) Est GFR (CKD-EPI)NonAf 83 (>60 ml/min/1.73 sqM) Glucose 98 (74-99) mg/dL Calcium 10.8 H (8.4-10.2) mg/dL Serum Alcohol <10 mg/dL Disposition Clinical Impression: Acute psychosis Disposition: TRANSFER TO PSYCH HOSP/UNIT Is patient prescribed a controlled substance at d/c from ED?: No Referrals: None,Stated [Primary Care Provider] - 1-2 days Time of Disposition: 16:28
[2020-11-24] MEDS ORDERED: SODIUM CHLORIDE 0.9% 1,000 ML IV STA (13:19)
[2020-11-24] MEDS ORDERED: ACETAMINOPHEN TAB 500 MG TAB PO STA (13:39)
[2020-11-24 13:41] LABS: Basophils % (A) 0 %; Eosinophils % (A) 0 %; HCT 44.7 % (39.0-53.0); HGB 15.2 gm/dL (13.0-17.5); Lymphocytes # (A) 1.2 k/uL (1.0-4.8); Lymphocytes % (A) 10 %; MCH 32.5 pg (25.0-35.0); MCHC 34.1 g/dL (31.0-37.0); MCV 95.4 fL (80.0-100.0); Mean Platelet Volume 7.3; Monocytes # (A) 0.6 k/uL (0-1.0); Monocytes % (A) 5 %; Neutrophils # (A) 9.3 k/uL (1.3-7.7); Neutrophils % (A) 82 %; Platelet Count 246 k/uL (150-450); RBC 4.69 m/uL (4.30-5.90); RDW 12.2 % (11.5-15.5); WBC 11.4 k/uL (3.8-10.6)
[2020-11-24 13:58] LABS: African American GFR (CKD) >90 (>60 ml/min/1.73 sqM); Alcohol <10 mg/dL; Anion Gap 20 mmol/L; Blood Urea Nitrogen 25 mg/dL (9-20); Calcium 10.8 mg/dL (8.4-10.2); Carbon Dioxide 24 mmol/L (22-30); Chloride 104 mmol/L (98-107); Glucose 98 mg/dL (74-99); Non-African American GFR(CKD) 83 (>60 ml/min/1.73 sqM); Potassium 5.4 mmol/L (3.5-5.1); Sodium 148 mmol/L (137-145)
[2020-11-24] MEDS ORDERED: LORazepam 2 MG/ML INJ IV STA (16:51)
--- NOTE | 2020-11-24 17:41 | ED ---
Medical Decision Making - Lab Data Result diagrams: 11/24/20 13:24 11/24/20 13:24 Lab Results 11/24/20 11/24/20 Range/Units 13:24 13:24 WBC 11.4 H (3.8-10.6) k/uL RBC 4.69 (4.30-5.90) m/uL Hgb 15.2 (13.0-17.5) gm/dL Hct 44.7 (39.0-53.0) % MCV 95.4 (80.0-100.0) fL MCH 32.5 (25.0-35.0) pg MCHC 34.1 (31.0-37.0) g/dL RDW 12.2 (11.5-15.5) % Plt Count 246 (150-450) k/uL MPV 7.3 Neutrophils % 82 % Lymphocytes % 10 % Monocytes % 5 % Eosinophils % 0 % Basophils % 0 % Neutrophils # 9.3 H (1.3-7.7) k/uL Lymphocytes # 1.2 (1.0-4.8) k/uL Monocytes # 0.6 (0-1.0) k/uL Eosinophils # 0.0 (0-0.7) k/uL Basophils # 0.0 (0-0.2) k/uL Sodium 148 H (137-145) mmol/L Potassium 5.4 H (3.5-5.1) mmol/L Chloride 104 (98-107) mmol/L Carbon Dioxide 24 (22-30) mmol/L Anion Gap 20 mmol/L BUN 25 H (9-20) mg/dL Creatinine 0.96 (0.66-1.25) mg/dL Est GFR (CKD-EPI)AfAm >90 (>60 ml/min/1.73 sqM) Est GFR (CKD-EPI)NonAf 83 (>60 ml/min/1.73 sqM) Glucose 98 (74-99) mg/dL Calcium 10.8 H (8.4-10.2) mg/dL Serum Alcohol <10 mg/dL Disposition Clinical Impression: Acute psychosis Disposition: TRANSFER TO PSYCH HOSP/UNIT Is patient prescribed a controlled substance at d/c from ED?: No Referrals: None,Stated [Primary Care Provider] - 1-2 days Procedures - Restraint - Face to Face Restraint Occurrence 2 Patient's Immediate Situation: Endangers self safety, Endangers others' safety, Endangers staff safety, Violent behavior Patient's Reaction to the Intervention: Uncooperative Patient's Medical & Behavioral Condition: Awake Need to Continue or Terminate Restraint or Seclusion: Continue Face to Face Eval of Restraint Date: 11/24/20 Face to Face Eval of Restraint Time: 16:30
[2020-11-24] MEDS ORDERED: ZIPRASIDONE 20 MG VIAL IM STA (23:09)
[2020-11-25 06:22] LABS: Appearance,Urine Clear (Clear); Bilirubin,Urine Negative (Negative); Blood,Urine Negative (Negative); Color,Urine Yellow; Glucose,Urine (UA) Negative (Negative); Ketones,Urine 2+ (Negative); Leukocyte Esterase,Urine Negative (Negative); Nitrite,Urine Negative (Negative); PH, Urine 6.5 (5.0-8.0); Protein,Urine Trace (Negative); Specific Gravity,Urine 1.019 (1.001-1.035); Urobilinogen,Urine <2.0 mg/dL (<2.0)
[2020-11-25 06:49] LABS: Amphetamine Screen,Urine Not Detected (NotDetected); Barbiturate Screen,Urine Not Detected (NotDetected); Benzodiazepines Screen,Urine Not Detected (NotDetected); Cocaine Screen,Urine Not Detected (NotDetected); Methadone Screen, Urine Not Detected (NotDetected); Opiate Screen,Urine Not Detected (NotDetected); Oxycodone Screen, Urine Not Detected (NotDetected); Phencyclidine Screen,Urine Not Detected (NotDetected); Tricyclic Antidepressant,Urine Not Detected (NotDetected); Urn Cannabinoid Scrn Not Detected (NotDetected)
[2020-11-25] MEDS ORDERED: LORazepam 2 MG/ML INJ IV STA ×3 (08:11→13:15)
[2020-11-25] MEDS ORDERED: ACETAMINOPHEN TAB 500 MG TAB PO STA (08:17)
[2020-11-25] MEDS ORDERED: LORazepam 1 MG TAB PO SCH (09:00)
[2020-11-25] MEDS ORDERED: OLANZapine 10 MG VIAL IM STA (10:04)
[2020-11-25 10:49] LABS: Basophils % (A) 0 %; Eosinophils # (A) 0.1 k/uL (0-0.7); Eosinophils % (A) 1 %; HGB 14.9 gm/dL (13.0-17.5); Lymphocytes # (A) 1.3 k/uL (1.0-4.8); Lymphocytes % (A) 12 %; MCH 32.4 pg (25.0-35.0); MCHC 34.6 g/dL (31.0-37.0); MCV 93.6 fL (80.0-100.0); Mean Platelet Volume 6.8; Monocytes # (A) 0.6 k/uL (0-1.0); Monocytes % (A) 6 %; Neutrophils % (A) 79 %; Platelet Count 263 k/uL (150-450); RBC 4.59 m/uL (4.30-5.90); RDW 12.1 % (11.5-15.5)
[2020-11-25 10:59] LABS: ALT 33 U/L (4-49); AST 58 U/L (17-59); African American GFR (CKD) >90 (>60 ml/min/1.73 sqM); Albumin 4.4 g/dL (3.5-5.0); Alkaline Phosphatase 74 U/L (38-126); Anion Gap 10 mmol/L; Blood Urea Nitrogen 24 mg/dL (9-20); Calcium 9.5 mg/dL (8.4-10.2); Carbon Dioxide 25 mmol/L (22-30); Chloride 102 mmol/L (98-107); Glucose 173 mg/dL (74-99); Non-African American GFR(CKD) >90 (>60 ml/min/1.73 sqM); Potassium 4.1 mmol/L (3.5-5.1); Sodium 137 mmol/L (137-145); Total Bilirubin 0.7 mg/dL (0.2-1.3); Total Protein 7.2 g/dL (6.3-8.2)
--- NOTE | 2020-11-25 14:56 | ED ---
Medical Decision Making - Lab Data Result diagrams: 11/25/20 10:31 11/25/20 10:31 Lab Results 11/24/20 11/24/20 11/25/20 Range/Units 13:24 13:24 05:40 WBC 11.4 H (3.8-10.6) k/uL RBC 4.69 (4.30-5.90) m/uL Hgb 15.2 (13.0-17.5) gm/dL Hct 44.7 (39.0-53.0) % MCV 95.4 (80.0-100.0) fL MCH 32.5 (25.0-35.0) pg MCHC 34.1 (31.0-37.0) g/dL RDW 12.2 (11.5-15.5) % Plt Count 246 (150-450) k/uL MPV 7.3 Neutrophils % 82 % Lymphocytes % 10 % Monocytes % 5 % Eosinophils % 0 % Basophils % 0 % Neutrophils # 9.3 H (1.3-7.7) k/uL Lymphocytes # 1.2 (1.0-4.8) k/uL Monocytes # 0.6 (0-1.0) k/uL Eosinophils # 0.0 (0-0.7) k/uL Basophils # 0.0 (0-0.2) k/uL Sodium 148 H (137-145) mmol/L Potassium 5.4 H (3.5-5.1) mmol/L Chloride 104 (98-107) mmol/L Carbon Dioxide 24 (22-30) mmol/L Anion Gap 20 mmol/L BUN 25 H (9-20) mg/dL Creatinine 0.96 (0.66-1.25) mg/dL Est GFR (CKD-EPI)AfAm >90 (>60 ml/min/1.73 sqM) Est GFR (CKD-EPI)NonAf 83 (>60 ml/min/1.73 sqM) Glucose 98 (74-99) mg/dL Calcium 10.8 H (8.4-10.2) mg/dL Total Bilirubin (0.2-1.3) mg/dL AST (17-59) U/L ALT (4-49) U/L Alkaline Phosphatase (38-126) U/L Total Protein (6.3-8.2) g/dL Albumin (3.5-5.0) g/dL Urine Color Urine Appearance (Clear) Urine pH (5.0-8.0) Ur Specific [place] (1.001-1.035) Urine Protein (Negative) Urine Glucose (UA) (Negative) Urine Ketones (Negative) Urine Blood (Negative) Urine Nitrite (Negative) Urine Bilirubin (Negative) Urine Urobilinogen (<2.0) mg/dL Ur Leukocyte Esterase (Negative) Urine Opiates Screen (NotDetected) Ur Oxycodone Screen (NotDetected) Urine Methadone Screen (NotDetected) Ur Propoxyphene Screen (NotDetected) Ur Barbiturates Screen (NotDetected) U Tricyclic Antidepress (NotDetected) Ur Phencyclidine Scrn (NotDetected) Ur Amphetamines Screen (NotDetected) U Methamphetamines Scrn (NotDetected) U Benzodiazepines Scrn (NotDetected) Urine Cocaine Screen (NotDetected) U Marijuana (THC) Screen (NotDetected) Serum Alcohol <10 mg/dL Coronavirus (PCR) Not Detected (Not Detectd) 11/25/20 11/25/20 11/25/20 Range/Units 05:40 05:51 10:31 WBC 10.0 (3.8-10.6) k/uL RBC 4.59 (4.30-5.90) m/uL Hgb 14.9 (13.0-17.5) gm/dL Hct 43.0 (39.0-53.0) % MCV 93.6 (80.0-100.0) fL MCH 32.4 (25.0-35.0) pg MCHC 34.6 (31.0-37.0) g/dL RDW 12.1 (11.5-15.5) % Plt Count 263 (150-450) k/uL MPV 6.8 Neutrophils % 79 % Lymphocytes % 12 % Monocytes % 6 % Eosinophils % 1 % Basophils % 0 % Neutrophils # 8.0 H (1.3-7.7) k/uL Lymphocytes # 1.3 (1.0-4.8) k/uL Monocytes # 0.6 (0-1.0) k/uL Eosinophils # 0.1 (0-0.7) k/uL Basophils # 0.0 (0-0.2) k/uL Sodium (137-145) mmol/L Potassium (3.5-5.1) mmol/L Chloride (98-107) mmol/L Carbon Dioxide (22-30) mmol/L Anion Gap mmol/L BUN (9-20) mg/dL Creatinine (0.66-1.25) mg/dL Est GFR (CKD-EPI)AfAm (>60 ml/min/1.73 sqM) Est GFR (CKD-EPI)NonAf (>60 ml/min/1.73 sqM) Glucose (74-99) mg/dL Calcium (8.4-10.2) mg/dL Total Bilirubin (0.2-1.3) mg/dL AST (17-59) U/L ALT (4-49) U/L Alkaline Phosphatase (38-126) U/L Total Protein (6.3-8.2) g/dL Albumin (3.5-5.0) g/dL Urine Color Yellow Urine Appearance Clear (Clear) Urine pH 6.5 (5.0-8.0) Ur Specific [place] 1.019 (1.001-1.035) Urine Protein Trace H (Negative) Urine Glucose (UA) Negative (Negative) Urine Ketones 2+ H (Negative) Urine Blood Negative (Negative) Urine Nitrite Negative (Negative) Urine Bilirubin Negative (Negative) Urine Urobilinogen <2.0 (<2.0) mg/dL Ur Leukocyte Esterase Negative (Negative) Urine Opiates Screen Not Detected (NotDetected) Ur Oxycodone Screen Not Detected (NotDetected) Urine Methadone Screen Not Detected (NotDetected) Ur Propoxyphene Screen Not Detected (NotDetected) Ur Barbiturates Screen Not Detected (NotDetected) U Tricyclic Antidepress Not Detected (NotDetected) Ur Phencyclidine Scrn Not Detected (NotDetected) Ur Amphetamines Screen Not Detected (NotDetected) U Methamphetamines Scrn Not Detected (NotDetected) U Benzodiazepines Scrn Not Detected (NotDetected) Urine Cocaine Screen Not Detected (NotDetected) U Marijuana (THC) Screen Not Detected (NotDetected) Serum Alcohol mg/dL Coronavirus (PCR) (Not Detectd) 11/25/20 Range/Units 10:31 WBC (3.8-10.6) k/uL RBC (4.30-5.90) m/uL Hgb (13.0-17.5) gm/dL Hct (39.0-53.0) % MCV (80.0-100.0) fL MCH (25.0-35.0) pg MCHC (31.0-37.0) g/dL RDW (11.5-15.5) % Plt Count (150-450) k/uL MPV Neutrophils % % Lymphocytes % % Monocytes % % Eosinophils % % Basophils % % Neutrophils # (1.3-7.7) k/uL Lymphocytes # (1.0-4.8) k/uL Monocytes # (0-1.0) k/uL Eosinophils # (0-0.7) k/uL Basophils # (0-0.2) k/uL Sodium 137 (137-145) mmol/L Potassium 4.1 (3.5-5.1) mmol/L Chloride 102 (98-107) mmol/L Carbon Dioxide 25 (22-30) mmol/L Anion Gap 10 mmol/L BUN 24 H (9-20) mg/dL Creatinine 0.69 (0.66-1.25) mg/dL Est GFR (CKD-EPI)AfAm >90 (>60 ml/min/1.73 sqM) Est GFR (CKD-EPI)NonAf >90 (>60 ml/min/1.73 sqM) Glucose 173 H (74-99) mg/dL Calcium 9.5 (8.4-10.2) mg/dL Total Bilirubin 0.7 (0.2-1.3) mg/dL AST 58 (17-59) U/L ALT 33 (4-49) U/L Alkaline Phosphatase 74 (38-126) U/L Total Protein 7.2 (6.3-8.2) g/dL Albumin 4.4 (3.5-5.0) g/dL Urine Color Urine Appearance (Clear) Urine pH (5.0-8.0) Ur Specific [place] (1.001-1.035) Urine Protein (Negative) Urine Glucose (UA) (Negative) Urine Ketones (Negative) Urine Blood (Negative) Urine Nitrite (Negative) Urine Bilirubin (Negative) Urine Urobilinogen (<2.0) mg/dL Ur Leukocyte Esterase (Negative) Urine Opiates Screen (NotDetected) Ur Oxycodone Screen (NotDetected) Urine Methadone Screen (NotDetected) Ur Propoxyphene Screen (NotDetected) Ur Barbiturates Screen (NotDetected) U Tricyclic Antidepress (NotDetected) Ur Phencyclidine Scrn (NotDetected) Ur Amphetamines Screen (NotDetected) U Methamphetamines Scrn (NotDetected) U Benzodiazepines Scrn (NotDetected) Urine Cocaine Screen (NotDetected) U Marijuana (THC) Screen (NotDetected) Serum Alcohol mg/dL Coronavirus (PCR) (Not Detectd) Disposition Clinical Impression: Acute psychosis Disposition: TRANSFER TO PSYCH HOSP/UNIT Referrals: None,Stated [Primary Care Provider] - 1-2 days Procedures - Restraint - Face to Face Restraint Occurrence 2 Patient's Immediate Situation: Endangers self safety, Endangers others' safety, Endangers staff safety Patient's Reaction to the Intervention: Uncooperative Patient's Medical & Behavioral Condition: Awake, Alert Need to Continue or Terminate Restraint or Seclusion: Continue Face to Face Eval of Restraint Date: 11/25/20 Face to Face Eval of Restraint Time: 14:55
[2020-11-25] MEDS ORDERED: MAGNESIUM HYDROXIDE 2,400 MG/10 ML CUP PO PRN (17:15)
[2020-11-25] MEDS ORDERED: MAG HYDROX/AL HYDROX/SIMETH 30 ML CUP PO PRN (17:15)
[2020-11-25] MEDS ORDERED: haloperidoL 5 MG TAB PO PRN (17:20)
[2020-11-25] MEDS: QUEtiapine 200 MG TAB PO SCH ×2 (20:33→21:28)
--- NOTE | 2020-11-25 22:57 | P.PN ---
Progress Note - Text Progress Note Date: 11/25/20 PATIENT ON ONE ON ONE WITH SECURITY , INAPPROPRIATE FOR EVALUATION AT THIS TIME
[2020-11-26] MEDS: HALOPERIDOL LACTATE 5 MG/ML 1 ML VIAL IM PRN ×4 (02:44→11:42)
[2020-11-26] MEDS: LORazepam 2 MG/ML INJ IM PRN ×4 (02:44→11:41)
--- NOTE | 2020-11-26 09:34 | P.HP ---
Psychiatric H&P - . H&P Date: 11/26/20 History & Physical: IDENTIFYING DATA: Yayo is a 65-year-old male who has a history of severe and persistent mental illness diagnosed as schizophrenia. HISTORY OF PRESENT ILLNESS: I reviewed the medical record and attempted to interview the patient. He was markedly disorganized and unable to provide a coherent history. According to his brother he stopped taking all psychotropic medications approximately 1 year ago. The EPS nurse spoke with his brother, Neel, who may also be the legal guardian. Neel stated that Yayo's behavior changed 4-5 weeks prior to admission. He became increasingly paranoid, aggressive and agitated. Over the last few weeks his condition has deteriorated and the police were called to his apartment several times due to his behavior. Neel called the police for a wellness check. The police brought him to hospital and completed a Petition that read: Yelling and screaming, talking about people hiding, sneaking in and out of his apartment. Male box is recording him. People are against him. He was markedly agitated in the ED to where his behavior required IM medications as well as restraint. He was admitted to the psychiatric unit on one-to-one with security. PAST PSYCHIATRIC HISTORY: He is a long history of schizophrenia and 6 prior admissions to this unit. His last admission is for approximately 30 days from October 29 to November 29 2016. His overall psychiatric condition improved markedly and was discharge on Invega 3 mg daily and Invega Sustenna 17 mg IM monthly. He was treated in our outpatient clinic until Dr. Peterson left practice and the clinic closed. Since then he has not received mental health services. PAST MEDICAL HISTORY: The record he has a history of cancer, hyperlipidemia, or osteoarthritis and pneumonia. ALLERGIES: Nonsteroidal anti-inflammatory medications SUBSTANCE USE HISTORY: He was unable to provide a substance abuse history. According to the record he has a history of alcohol use and possible opiate use problems. FAMILY PSYCHIATRIC/SUBSTANCE USE HISTORY: According to the record he brother who by suicide LEGAL HISTORY:. He does not have legal problems. SOCIAL HISTORY: Lives alone in his own apartment. 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 He has one child with whom he has no contact. MENTAL STATUS EXAM: He presented as small framed and pale appearing elderly male who intermittently made eye contact. The security systems administrator was present during interview. He had difficulty concentrating and attending to the interview having received an IM injection recently of Ativan and Haldol for agitation and aggressive behavior. He showed psychomotor retardation. Her speech was not spontaneous and markedly dysarthric. His affect was flat. I was able to fully evaluate his thought content her thought process. He did not appe ar to be responding to internal stimuli. STRENGTHS: Stable housing, stable income, supportive family WEAKNESSES: Chronic and persistent mental illness, poor compliance with mental health treatment IMPRESSION: He is a 65-year-old male who has a history of a schizophrenia. He has had several prior psychiatric hospitalizations some of which were quite extensive. Has a history of marked agitation, disorganization and paranoia during the episodes of psychosis. He presented to the psychiatric unit involuntarily with history of stopping his antipsychotic medication and becoming increasingly paranoid, disorganized, agitated, hostile and threatening. He should be treated inpatient basis with a combination of psychopharmacology and multimodal therapy. PRINCIPLE DIAGNOSIS: Schizophrenia multiple episodes currently an acute episode with delusions, hallucinations, disorganized speech, abnormal psychomotor behavior, impaired, in addition and manic symptoms. RECOMMENDATION: Admit to the psychiatric unit. Safety precautions with 1-1. Completed the second clinical certificate and proceeded with the petition for involuntary hospitalization. Restart Invega 6 mg daily and titrated according to clinical response and tolerance. Transition to a long-acting Invega prior to discharge. Haldol and/or Ativan by mouth or IM for agitation, aggression acute psychosis. Encourage participation in therapeutic groups and activities as tolerated. Evaluate clinical status response to treatment daily basis. Allergies Allergy/AdvReac Type Severity Reaction Status Date / Time NSAIDS (Non-Steroidal AdvReac Nausea Verified 11/24/20 12:26 Anti-Inflamma Vital Signs Temp 97.2 F L 11/26/20 01:06 Pulse 87 11/26/20 01:06 Resp 15 11/26/20 01:06 BP 113/56 11/26/20 01:06 Pulse Ox 97 11/26/20 01:06 Laboratory Last Values WBC 10.0 k/uL (3.8-10.6) 11/25/20 10:31 RBC 4.59 m/uL (4.30-5.90) 11/25/20 10:31 Hgb 14.9 gm/dL (13.0-17.5) 11/25/20 10:31 Hct 43.0 % (39.0-53.0) 11/25/20 10:31 MCV 93.6 fL (80.0-100.0) 11/25/20 10:31 MCH 32.4 pg (25.0-35.0) 11/25/20 10:31 MCHC 34.6 g/dL (31.0-37.0) 11/25/20 10:31 RDW 12.1 % (11.5-15.5) 11/25/20 10:31 Plt Count 263 k/uL (150-450) 11/25/20 10:31 MPV 6.8 11/25/20 10:31 Neutrophils % 79 % 11/25/20 10:31 Lymphocytes % 12 % 11/25/20 10:31 Monocytes % 6 % 11/25/20 10:31 Eosinophils % 1 % 11/25/20 10:31 Basophils % 0 % 11/25/20 10:31 Neutrophils # 8.0 k/uL (1.3-7.7) H 11/25/20 10:31 Lymphocytes # 1.3 k/uL (1.0-4.8) 11/25/20 10:31 Monocytes # 0.6 k/uL (0-1.0) 11/25/20 10:31 Eosinophils # 0.1 k/uL (0-0.7) 11/25/20 10:31 Basophils # 0.0 k/uL (0-0.2) 11/25/20 10:31 Sodium 137 mmol/L (137-145) 11/25/20 10:31 Potassium 4.1 mmol/L (3.5-5.1) 11/25/20 10:31 Chloride 102 mmol/L (98-107) 11/25/20 10:31 Carbon Dioxide 25 mmol/L (22-30) 11/25/20 10:31 Anion Gap 10 mmol/L 11/25/20 10:31 BUN 24 mg/dL (9-20) H 11/25/20 10:31 Creatinine 0.69 mg/dL (0.66-1.25) 11/25/20 10:31 Est GFR (CKD-EPI)AfAm >90 (>60 ml/min/1.73 sqM) 11/25/20 10:31 Est GFR (CKD-EPI)NonAf >90 (>60 ml/min/1.73 sqM) 11/25/20 10:31 Glucose 173 mg/dL (74-99) H 11/25/20 10:31 Calcium 9.5 mg/dL (8.4-10.2) 11/25/20 10:31 Total Bilirubin 0.7 mg/dL (0.2-1.3) 11/25/20 10:31 AST 58 U/L (17-59) 11/25/20 10:31 ALT 33 U/L (4-49) 11/25/20 10:31 Alkaline Phosphatase 74 U/L (38-126) 11/25/20 10:31 Total Protein 7.2 g/dL (6.3-8.2) 11/25/20 10:31 Albumin 4.4 g/dL (3.5-5.0) 11/25/20 10:31 TSH 1.280 mIU/L (0.465-4.680) 11/25/20 10:31 Urine Color Yellow 11/25/20 05:40 Urine Appearance Clear (Clear) 11/25/20 05:40 Urine pH 6.5 (5.0-8.0) 11/25/20 05:40 Ur Specific [place] 1.019 (1.001-1.035) 11/25/20 05:40 Urine Protein Trace (Negative) H 11/25/20 05:40 Urine Glucose (UA) Negative (Negative) 11/25/20 05:40 Urine Ketones 2+ (Negative) H 11/25/20 05:40 Urine Blood Negative (Negative) 11/25/20 05:40 Urine Nitrite Negative (Negative) 11/25/20 05:40 Urine Bilirubin Negative (Negative) 11/25/20 05:40 Urine Urobilinogen <2.0 mg/dL (<2.0) 11/25/20 05:40 Ur Leukocyte Esterase Negative (Negative) 11/25/20 05:40 Urine Opiates Screen Not Detected (NotDetected) 11/25/20 05:51 Ur Oxycodone Screen Not Detected (NotDetected) 11/25/20 05:51 Urine Methadone Screen Not Detected (NotDetected) 11/25/20 05:51 Ur Propoxyphene Screen Not Detected (NotDetected) 11/25/20 05:51 Ur Barbiturates Screen Not Detected (NotDetected) 11/25/20 05:51 U Tricyclic Antidepress Not Detected (NotDetected) 11/25/20 05:51 Ur Phencyclidine Scrn Not Detected (NotDetected) 11/25/20 05:51 Ur Amphetamines Screen Not Detected (NotDetected) 11/25/20 05:51 U Methamphetamines Scrn Not Detected (NotDetected) 11/25/20 05:51 U Benzodiazepines Scrn Not Detected (NotDetected) 11/25/20 05:51 Urine Cocaine Screen Not Detected (NotDetected) 11/25/20 05:51 U Marijuana (THC) Screen Not Detected (NotDetected) 11/25/20 05:51 Serum Alcohol <10 mg/dL 11/24/20 13:24 Coronavirus (PCR) Not Detected (Not Detectd) 11/25/20 05:40 11/26/20 09:17
[2020-11-26 09:52] LABS: Chol/HDL Ratio 2.83; LDL Cholesterol,Calculated 56.8 mg/dL (0.0-131.0); VLDL Calculation 20.2 mg/dL (5.00-40.00)
[2020-11-26] MEDS: PALIPERIDONE 6 MG TAB.ER.24 PO SCH (11:25)
[2020-11-26] MEDS: ACETAMINOPHEN TAB 325 MG TAB PO PRN ×2 (11:47→20:45)
[2020-11-26 15:15] LABS: Hemoglobin A1C 5.2 % (4.0-6.0)
[2020-11-26] MEDS: QUEtiapine 200 MG TAB PO SCH (20:44)
[2020-11-26] MEDS: PANTOPRAZOLE 40 MG TABLET PO SCH (21:13)
[2020-11-27] MEDS: ACETAMINOPHEN TAB 325 MG TAB PO PRN ×2 (06:15→21:43)
[2020-11-27] MEDS: PANTOPRAZOLE 40 MG TABLET PO SCH ×2 (12:16→16:57)
[2020-11-27] MEDS: PALIPERIDONE 6 MG TAB.ER.24 PO SCH ×2 (12:16→21:39)
[2020-11-27] MEDS ORDERED: traZODone HCL 100 MG TAB PO PRN (13:56)
--- NOTE | 2020-11-27 13:57 | P.PN ---
Progress Note - Text Progress Note Date: 11/27/20 Interval History: Patient was seen eating lunch in the hallway today and was agreeable to speak to signwriter with his security at his side. Patient appeared to have some disorganized speech and was difficult to comprehend at times. He was illogical at times when speaking about his family members. He claims that there are "people him a hit list" however was vague and not able to describe what he meant by that. He claims that his mood is "a bit better" today and is denying any anxiety or depression. He claims that he is taking his medications. He appeared to be less impulsive today and less irritable. He claims that he is sleeping fairly at nighttime. She asked signwriter for "help" however did not describe what he wanted help for and signwriter informed patient of the plan and also his involuntary status. At this time patient denies any current suicidal or homical ideations, intent or plan. Patient denies any auditory, visual hallucinations. Patient denies any side effects from the medications and has been compliant with meds. Mental Status Exam: General Appearance: [Patient appears to be elderly, stated age is alert, attempts to cooperate. Disorganized.] Behavior: [Patient is calmly seated without any agitated behavior.]'s organized. Speech: Patient's speech is fluent and nonpressured. Difficult to comprehend. Mood/Affect: Mood is improving mildly, affect is congruent and constricted. Suicidality/Homicidality: Patient denies having any suicidal or homicidal ideation intent or plan. Perceptions: Patient denies any visual hallucinations [and denies any auditory hallucinations] Though content/process: Patient has minimal insight. Rambles at times. Illogical. Memory and concentration: AOX3, grossly intact for the purposes of this session Judgment and insight: Chronically poor Assessment Schizophrenia with acute exacerbation Plan: -Patient continues to meet criteria for inpatient psychiatric admission for symptom stabilization and safety. Patient has [not] signed [adult voluntary form and] [medication consent] and was placed in patient's chart. -Medications: Discontinued Seroquel and replaced with paliperidone 6 mg daily at bedtime +3 mg daily for mood stabilization/psychosis. Plan will be to transition patient onto long-acting injection. Trazodone 100 mg daily at bedtime when necessary for insomnia. -When necessary Ativan and Haldol for agitation/aggression. -NRT - not needed as patient does not smoke -SW on board for discharge planning. Encouraged the patient to participate in milieu. [Currently awaiting deferral with contract attorney and court date.]
[2020-11-27] MEDS: ATORVASTATIN 20 MG TAB PO SCH (14:31)
[2020-11-27] MEDS: NICOTINE 14MG/24HR PATCH TRANSDERM SCH (22:02)
--- NOTE | 2020-11-28 02:58 | P.MDCNMH ---
History of Present Illness H&P Date: 11/27/20 Chief Complaint: acute psychosis 65 year old male with hyperlipidemia patient comes in with police for evaluation due to his behavior , he has history of schizophrenia , an dwas off medications for over a year now. patient complains of right knee abrasion , denies painful range of motion or limitations to walking . denies any fever, chills, chest pain , trouble breathing , nausea vomting, or abd pain Review of Systems Pertinent positives as noted in HPI. All other systems were reviewed and are negative Past Medical History Past Medical History: Cancer, Hyperlipidemia, Osteoarthritis (OA), Pneumonia, Skin Disorder Additional Past Medical History / Comment(s): varicose veins, eczema, hx skin cancer History of Any Multi-Drug Resistant Organisms: None Reported Past Surgical History: Orthopedic Surgery Additional Past Surgical History / Comment(s): ORIF rt ankle and lower leg x 3- pins and screws/later removed, removal of skin cancer on lt presybeterian, guillaume cataracts Past Anesthesia/Blood Transfusion Reactions: No Reported Reaction Past Psychological History: Anxiety, Bipolar, Depression, Schizoaffective Disorder Smoking Status: Former smoker Past Alcohol Use History: Rare Past Drug Use History: None Reported - Past Family History Father History Unknown: Yes Mother Family Medical History: Cancer Medications and Allergies Home Medications Medication Instructions Recorded Confirmed Type Atorvastatin [Lipitor] 20 mg PO HS 02/13/17 11/24/20 History Omeprazole 20 mg PO BID 11/24/20 11/24/20 History traZODone HCL [Desyrel] 75 mg PO HS PRN 11/24/20 11/24/20 History Allergies Allergy/AdvReac Type Severity Reaction Status Date / Time NSAIDS (Non-Steroidal AdvReac Nausea Verified 11/24/20 12:26 Anti-Inflamma Physical Exam Constitutional: No acute distress, conversant, pleasant Eyes: Anicteric sclerae, moist conjunctiva, Pupils equal round reactive to light ENMT: NC/AT Oropharynx clear, no erythema, or exudates Neck: Supple, FROM, no masses, or JVD No carotid bruits No thyromegaly Lungs: Clear to auscultation Clear to percussion Normal respiratory effort, no accessory muscle use Cardiovascular: Heart regular in rate and rhythm, No murmurs, gallops, or rubs No peripheral edema Abdominal: Soft Nontender, no guarding, rebound or rigidity Abdomen moving with respiration Normoactive bowel sounds No hepatomegaly, No splenomegaly No palpable mass No abdominal wall hernia noted Skin: large abrasion ov er the right knee, no swelling , slight surrounding induration and erythema, no drainage, no tenderness to palpation no warmth to the touch . smaller another abrasion over the left knee no erythema or induration no drainage. very small unremarkable abrasion over left wrist over ventral aspect Normal temperature, tone, texture, turgor No induration No subcutaneous nodules No rash, lesions No ulcers Extremities: No digital cyanosis No clubbing Pedal pulses intact and symmetrical Radial pulses intact and symmetrical No calf tenderness Psychiatric: Alert and oriented to person, place and time Neuro Muscles Strength 5/5 in all 4 extremities Sensation to light touch grossly present throughout Cranial nerves II-XII grossly intact No focal sensory deficits Lymphatics: no palpable cervical or supraclavicular , or inguinal lymph nodes Cranial Nerve Examination - Cranial Nerves Cranial Nerve II- Optic: Intact Cranial Nerve III- Oculomotor: Intact Cranial Nerve IV- Trochlear: Intact Cranial Nerve V- Trigeminal: Intact Cranial Nerve - Abducens: Intact Cranial Nerve VII- Facial: Intact Cranial Nerve VIII- Auditory: Intact Cranial Nerve IX- Glossopharyngeal: Intact Cranial Nerve X- Vagus: Intact Cranial Nerve XI- Accessory: Intact Cranial Nerve XII- Hypoglossal: Intact Results CBC & Chem 7: 11/25/20 10:31 11/25/20 10:31 Assessment and Plan Assessment: acute psychosis schizophrenia management per psych knee abrasion bacitracin hyperlipidemia statin Thank you for allowing us to participate in the care of this patient. We will follow peripherally. Do not hesitate to contact us with questions. Someone can be reached from the [facility] hospitalist group at all hours of the day at [phone].
[2020-11-28] MEDS: ACETAMINOPHEN TAB 325 MG TAB PO PRN ×2 (03:33→07:39)
[2020-11-28] MEDS: PANTOPRAZOLE 40 MG TABLET PO SCH ×2 (07:39→17:31)
[2020-11-28] MEDS ORDERED: PALIPERIDONE 3 MG TAB.ER.24 PO SCH (09:00)
[2020-11-28] MEDS: BACITRACIN OINT 1 EACH PACKET TOPICAL SCH ×3 (09:18→21:23)
[2020-11-28] MEDS: NICOTINE 14MG/24HR PATCH TRANSDERM SCH (09:18)
[2020-11-28] MEDS: ATORVASTATIN 20 MG TAB PO SCH (09:18)
--- NOTE | 2020-11-28 11:31 | P.PN ---
Progress Note - Text Progress Note Date: 11/28/20 Interval History: Patient was seen in his room this morning and continues to have a security one to one at his side. Patient appeared to have some disorganized speech however this has been gradually improving. He still remains difficult to comprehend at times. He appears to have mild improvement in terms of his thought process which is more goal oriented today. He spoke about his encounter with the police prior to coming into the hospital and how he got a knee injury. He claims that his mood is "bit better" today and is denying any anxiety or depression. He claims that he is taking his medications. He appeared to be less impulsive today and less irritable. He claims that he is sleeping fairly at nighttime. At this time patient denies any current suicidal or homical ideations, intent or plan. Patient denies any auditory, visual hallucinations. Patient denies any side effects from the medications and has been compliant with meds. Mental Status Exam: General Appearance: Patient appears to be elderly, stated age is alert, attempts to cooperate. less Disorganized today Behavior: Patient is calmly seated without any agitated. attempts to cooperate Speech: Patient's speech is fluent and nonpressured. Difficult to comprehend. Mood/Affect: Mood is improving mildly, affect is congruent and constricted. Suicidality/Homicidality: Patient denies having any suicidal or homicidal ideation intent or plan. Perceptions: Patient denies any visual hallucinations and denies any auditory hallucinations Though content/process: Patient has minimal insight. Rambles at times. more logical today Memory and concentration: AOX3, grossly intact for the purposes of this session Judgment and insight: Chronically poor, improving mildly Assessment Schizophrenia with acute exacerbation Plan: -Patient continues to meet criteria for inpatient psychiatric admission for symptom stabilization and safety. Patient has not signed adult voluntary form and medication consent and was placed in patient's chart. -Medications: increase paliperidone 6 mg BID for mood stabilization/psychosis. Plan will be to transition patient onto long-acting injection. continue with Trazodone 100 mg daily at bedtime when necessary for insomnia. -When necessary Ativan and Haldol for agitation/aggression. -NRT - not needed as patient does not smoke -SW on board for discharge planning. Encouraged the patient to participate in milieu. Currently awaiting deferral with assistant prosecuting attorney and court date.
[2020-11-28] MEDS: PALIPERIDONE 6 MG TAB.ER.24 PO SCH (21:23)
[2020-11-28] MEDS ORDERED: BENZONATATE 100 MG CAP PO PRN (22:49)
[2020-11-29] MEDS: PANTOPRAZOLE 40 MG TABLET PO SCH ×2 (08:54→17:48)
[2020-11-29] MEDS: NICOTINE 14MG/24HR PATCH TRANSDERM SCH (08:54)
[2020-11-29] MEDS: PALIPERIDONE 6 MG TAB.ER.24 PO SCH ×3 (08:54→21:36)
[2020-11-29] MEDS: ATORVASTATIN 20 MG TAB PO SCH (08:54)
[2020-11-29] MEDS: BACITRACIN OINT 1 EACH PACKET TOPICAL SCH ×3 (08:59→22:12)
--- NOTE | 2020-11-29 09:45 | P.PN ---
Progress Note - Text S&O: Patient was seen for a routine follow-up examination. He asked me in the morning if he can talk to me without any prompt. He started a lady friendly conversation. He talked about the previous psychiatrists who are not here anymore. He has some abrasions on his knees and then he was asked about it he said it was from the police. He changed topics multiple times and his attention had to be brought back. Because of this problem he was not able to provide coherent information. After multiple prompts he said he had gone to the store and bought a 12 pack of beer drank 6 of them, got upset and irate when he heard the dogs barking. Apparently he has been without any psychiatric medications for over 1 year and has been getting irate loud etc. The police were called and he was brought here. Apparently he did not want to come on his own and was dragged by the police which resulted in abrasions on his knees. Patient has d iagnosis of schizophrenia and psychosis. Has not shown any self-destructive or violent behavior over the last 24 hours. Patient is friendly and cheerful and talkative. He has pressured speech and f light of ideas. He gets a little hyperactive. His mood is cheerful with broad affect. He did not become hostile or threatening. He denies he has any mood fluctuation and insists that he does not have schizophrenia or bipolar disorder. He insists not to take any medications in spite of counseling to the contrary. He insists that he is not hearing voices or having any unusual thoughts. He als o denies suicidal and homicidal thoughts. He is well oriented with good memory. However he is not able to. focus on topic discussed. Assessment: Patient appears to have an affective disorder. Does not appear to be a violent or self destructive risk. Plan: Discontinue finger food and one-to-one supervision. Mood stabilizers are recommended. But, patient refuses to consider any of the mood stabilizers. He has a court hearing on the of this month following which medication adjustment/administration can be decided.
[2020-11-29] MEDS: BENZOCAINE/MENTHOL LOZENG 1 EACH LOZENGE MUCOUS MEM PRN ×3 (13:50→21:38)
[2020-11-30] MEDS: BENZOCAINE/MENTHOL LOZENG 1 EACH LOZENGE MUCOUS MEM PRN ×3 (03:50→15:48)
[2020-11-30] MEDS: PALIPERIDONE 6 MG TAB.ER.24 PO SCH ×2 (08:29→21:23)
[2020-11-30] MEDS: ATORVASTATIN 20 MG TAB PO SCH (09:06)
[2020-11-30] MEDS: PANTOPRAZOLE 40 MG TABLET PO SCH ×2 (09:06→18:35)
[2020-11-30] MEDS: BACITRACIN OINT 1 EACH PACKET TOPICAL SCH ×3 (09:07→21:23)
[2020-11-30] MEDS: NICOTINE 14MG/24HR PATCH TRANSDERM SCH (09:07)
--- NOTE | 2020-11-30 13:30 | P.PN ---
Progress Note - Text Progress Note Date: 11/30/20 S&O: Patient was seen in the office for routine follow-up examination. He is friendly and talkative. He has been refusing to take his Invega for several days now and has not shown any violent or bizarre behavior. He has been taking his Protonix and Lipitor for most of the time. He does not have any specific complaints or concerns. He gets along fairly well with other patients and staff members. Patient is friendly and cheerful and talkative. He has pressured speech and flight of ideas. He gets a little hyperactive. His mood is cheerful with broad affect. He did not become hostile or threatening. He denies he has any mood fluctuation and insists that he does not have schizophrenia or bipolar disorder. He insists not to take any medications in spite of counseling to the contrary. He insists that he is not hearing voices or having any unusual thoughts. He also denies suicidal and homicidal thoughts. He is well oriented with good memory. However he is not able to. focus on topic discussed. A&P: Continue observation and current supervision and therapies.
[2020-11-30] MEDS ORDERED: MD COMMUNICATION TO PHARMACY 1 EACH MISC PO PRN (20:33)
[2020-11-30] MEDS: NICOTINE 4 MG PO PRN ×2 (21:03→23:24)
[2020-12-01] MEDS: NICOTINE 4 MG PO PRN ×5 (08:57→18:40)
[2020-12-01] MEDS: PANTOPRAZOLE 40 MG TABLET PO SCH ×2 (08:57→18:40)
[2020-12-01] MEDS: NICOTINE 14MG/24HR PATCH TRANSDERM SCH (08:58)
[2020-12-01] MEDS: PALIPERIDONE 6 MG TAB.ER.24 PO SCH ×2 (08:58→21:37)
[2020-12-01] MEDS: ATORVASTATIN 20 MG TAB PO SCH (08:58)
[2020-12-01] MEDS: BACITRACIN OINT 1 EACH PACKET TOPICAL SCH ×3 (08:58→21:37)
--- NOTE | 2020-12-01 13:29 | P.PN ---
Progress Note - Text Progress Note Date: 12/01/20 S&O: Patient was seen in the office for follow-up examination. He continues to refuse his psychiatric medications. He gets talkative but has not been violent or bizarre. He socializes people and gets along well. Does not have any specific complaint or concern except to find out when he can leave this place and go home. He has been taking his Lipitor and Protonix. This is a quite ambulatory male with adequate hygiene. He is polite and friendly and cooperative. He does not show any psychomotor agitation or retardation. His speech is spontaneous and tends to get over inclusive. Denies hallucinations, delusional thinking, suicide and homicide thoughts. He is well oriented with adequate memory concentration and general fund of knowledge. A&P: Continue observation supervision and therapies. He is waiting for this month for court hearing regarding his commitment.
[2020-12-01] MEDS: ACETAMINOPHEN TAB 325 MG TAB PO PRN (16:53)
[2020-12-02] MEDS: NICOTINE 4 MG PO PRN ×8 (03:38→23:10)
[2020-12-02] MEDS: ACETAMINOPHEN TAB 325 MG TAB PO PRN ×4 (03:45→23:07)
[2020-12-02] MEDS: ATORVASTATIN 20 MG TAB PO SCH (08:50)
[2020-12-02] MEDS: PANTOPRAZOLE 40 MG TABLET PO SCH ×2 (08:50→18:04)
[2020-12-02] MEDS: NICOTINE 14MG/24HR PATCH TRANSDERM SCH (08:50)
[2020-12-02] MEDS: PALIPERIDONE 6 MG TAB.ER.24 PO SCH ×2 (08:50→21:17)
[2020-12-02] MEDS: BACITRACIN OINT 1 EACH PACKET TOPICAL SCH ×3 (08:50→21:00)
--- NOTE | 2020-12-02 14:32 | P.PN ---
Progress Note - Text Progress Note Date: 12/02/20 Interval History: Patient was seen in the room and was directable and agreeable to speak with internal communications writer . Patient appeared to have some disorganized speech however this has been gradually improving. He still remains difficult to comprehend at times.He was observed to be making and gestures and responding to some unknown stimuli. Patient denies any side effects from the medications and has been compliant with meds. Mental Status Exam: General Appearance: Patient appears to be stated age is alert, directable, and cooperative. Behavior: Patient is calmly seated without any agitated behavior. Speech: Patient's speech is fluent and nonpressured. Mood/Affect: Mood is improving mildly, affect is congruent and constricted. Suicidality/Homicidality: Patient denies having any suicidal or homicidal ideation intent or plan. Perceptions: Patient denies any visual hallucinations and denies any auditory hallucinations Though content/process: There is no evidence of any delusional thought content and thought process is linear and goal-directed. Memory and concentration: AOX3, grossly intact for the purposes of this session Judgment and insight: Improving mildly Assessment Schizophrenia with acute exacerbation Plan: -Patient continues to meet criteria for inpatient psychiatric admission for symptom stabilization and safety. -Medications: Continue medication as before -When necessary Ativan and Haldol for agitation/aggression. -SW on board for discharge planning. Encouraged the patient to participate in milieu.
[2020-12-03] MEDS: NICOTINE 4 MG PO PRN ×8 (02:27→22:25)
[2020-12-03] MEDS: ACETAMINOPHEN TAB 325 MG TAB PO PRN ×5 (02:34→19:03)
[2020-12-03] MEDS: PANTOPRAZOLE 40 MG TABLET PO SCH ×2 (08:06→21:06)
[2020-12-03] MEDS: ATORVASTATIN 20 MG TAB PO SCH (08:06)
[2020-12-03] MEDS: NICOTINE 14MG/24HR PATCH TRANSDERM SCH (08:37)
[2020-12-03] MEDS: BACITRACIN OINT 1 EACH PACKET TOPICAL SCH ×3 (08:37→21:01)
[2020-12-03] MEDS: PALIPERIDONE 6 MG TAB.ER.24 PO SCH ×2 (08:37→21:06)
--- NOTE | 2020-12-03 10:59 | P.PN ---
Progress Note - Text Progress Note Date: 12/03/20 Interval History: Patient was seen in the room and was directable and agreeable to speak with freelance copywriter. Yayo is a 65-year-old male who has a history of severe and persistent mental illness diagnosed as schizophrenia.. At this time patient denies any suicidal or homical ideations, intent or plan. Patient denies any auditory, visual hallucinations and denies any paranoia or delusions. Patient denies any side effects from the medications and has been compliant with meds. Mental Status Exam: General Appearance: Patient appears to be stated age is alert, directable, and cooperative. Behavior: Patient is calmly seated without any agitated behavior. Speech: Patient's speech is fluent and nonpressured. Mood/Affect: Mood is improving mildly, affect is congruent and constricted. Suicidality/Homicidality: Patient denies having any suicidal or homicidal ideation intent or plan. Perceptions: Patient denies any visual hallucinations and denies any auditory hallucinations Memory and concentration: AOX3, grossly intact for the purposes of this session Judgment and insight: Improving mildly Assessment Schizophrenia multiple episodes currently an acute episode with delusions, hallucinations, disorganized speech, abnormal psychomotor behavior, impaired, in addition and manic symptoms. Plan: -Patient continues to meet criteria for inpatient psychiatric admission for symptom stabilization and safety. -Medications: Continue medication as before -When necessary Ativan and Haldol for agitation/aggression. -SW on board for discharge planning. Encouraged the patient to participate in milieu.
[2020-12-04] MEDS: NICOTINE 4 MG PO PRN ×5 (00:26→16:47)
[2020-12-04] MEDS: PANTOPRAZOLE 40 MG TABLET PO SCH ×2 (09:03→21:00)
[2020-12-04] MEDS: PALIPERIDONE 6 MG TAB.ER.24 PO SCH (09:04)
[2020-12-04] MEDS: ATORVASTATIN 20 MG TAB PO SCH (09:04)
[2020-12-04] MEDS: BACITRACIN OINT 1 EACH PACKET TOPICAL SCH ×3 (09:04→21:00)
[2020-12-04] MEDS: NICOTINE 14MG/24HR PATCH TRANSDERM SCH (09:04)
[2020-12-04] MEDS: ACETAMINOPHEN TAB 325 MG TAB PO PRN ×2 (09:05→16:46)
--- NOTE | 2020-12-04 09:18 | P.PN ---
Progress Note - Text Progress Note Date: 12/04/20 Interval History: Patient was seen wandering the hallways this morning and was agreeable to speak to database report writer in the office. Patient appeared to have some disorganized speech and thought process today. She appears to be somewhat irritable today and argumentative about his medications. He states that he stopped taking his medication several days ago and feels that he does not need to take any more medications. He was fairly vague about why he stopped. He claims that he has been having family problems and wants to be discharged immediately. He shows very poor insight into his rental illness and claims that he has not spoken with his administration dean however last week patient did not defer. He claims that his mood is "bit better" today and is denying any anxiety or depression. He claims that he is sleeping fairly at nighttime. At this time patient denies any current suicidal or homical ideations, intent or plan. Patient denies any auditory, visual hallucinations. Patient denies any side effects from the medications and has been compliant with meds. Mental Status Exam: General Appearance: Patient appears to be elderly, stated age is alert, attempts to cooperate. Disorganized today Behavior: Patient is calmly seated without any agitated. Argumentative and irritable Speech: Patient's speech is fluent and nonpressured. Difficult to comprehend. Mood/Affect: Mood is "ok", affect is congruent and constricted. Suicidality/Homicidality: Patient denies having any suicidal or homicidal ideation intent or plan. Perceptions: Patient denies any visual hallucinations and denies any auditory hallucinations Though content/process: Patient has minimal insight. Rambles at times. Diso rganized thought process. Memory and concentration: AOX3, grossly intact for the purposes of this session Judgment and insight: Chronically poor Assessment Schizophrenia with acute exacerbation Plan: -Patient continues to meet criteria for inpatient psychiatric admission for symptom stabilization and safety. Patient has not signed adult voluntary form and medication consent and was placed in patient's chart. -Medications: continue with paliperidone 6 mg daily for mood stabilization/psychosis however patient has not been taking his medications. Plan will be to transition patient onto long-acting injection. continue with Trazodone 100 mg daily at bedtime when necessary for insomnia. -When necessary Ativan and Haldol for agitation/aggression. -NRT - not needed as patient does not smoke -SW on board for discharge planning. Encouraged the patient to participate in milieu. Patient did not defer and will have full court hearing scheduled for 12/13/20 at 11:00am.
[2020-12-04] MEDS: HALOPERIDOL LACTATE 5 MG/ML 1 ML VIAL IM PRN (19:24)
[2020-12-04] MEDS: LORazepam 2 MG/ML INJ IM PRN (19:24)
[2020-12-05] MEDS: NICOTINE 4 MG PO PRN ×9 (03:52→23:17)
[2020-12-05] MEDS: ACETAMINOPHEN TAB 325 MG TAB PO PRN ×3 (07:40→18:54)
[2020-12-05] MEDS: ATORVASTATIN 20 MG TAB PO SCH (08:55)
[2020-12-05] MEDS: NICOTINE 14MG/24HR PATCH TRANSDERM SCH (08:55)
[2020-12-05] MEDS: PALIPERIDONE 6 MG TAB.ER.24 PO SCH (08:55)
[2020-12-05] MEDS: PANTOPRAZOLE 40 MG TABLET PO SCH ×2 (08:55→20:55)
[2020-12-05] MEDS: BACITRACIN OINT 1 EACH PACKET TOPICAL SCH ×3 (08:55→20:55)
--- NOTE | 2020-12-05 09:31 | P.PN ---
Progress Note - Text Progress Note Date: 12/05/20 Interval History: Patient was seen wandering the hallways this morning and was agreeable to speak to short story writer in the office. Patient appeared to have some disorganized speech and thought process today. He recieved a haldol and ativan Im prn last night for aggression/agitation and apparently was threatening staff and peers. She appears to be somewhat irritable today and argumentative about his medications and him being in the hospital. Patient continues to ramble and is illogical and loose at times. He shows very poor insight into his mental illness. He claims that his mood is "fine" today and is denying any anxiety or depression. He claims that he is sleeping fairly at nighttime. At this time patient denies any current suicidal or homical ideations, intent or plan. Patient denies any auditory, visual hallucinations. Patient denies any side effects from the medications and has been compliant with meds. Mental Status Exam: General Appearance: Patient appears to be elderly, stated age is alert, attempts to cooperate. Disorganized today Behavior: Patient is calmly seated without any agitated. Argumentative and irritable Speech: Patient's speech is fluent and nonpressured. Difficult to comprehend. Mood/Affect: Mood is "fine", affect is incongruent and constricted. Suicidality/Homicidality: Patient denies having any suicidal or homicidal ideation intent or plan. Perceptions: Patient denies any visual hallucinations and denies any auditory hallucinations Though content/process: Patient has minimal insight. Rambles at times. Disorganized thought process. Memory and concentration: AOX3, grossly intact for the purposes of this session Judgment and insight: Chronically poor Assessment Schizophrenia with acute exacerbation Plan: -Patient continues to meet criteria for inpatient psychiatric admission for symptom stabilization and safety. Patient has not signed adult voluntary form and medication consent and was placed in patient's chart. -Medications: continue with paliperidone 6 mg daily for mood stabilization/psychosis however patient has not been taking his medications. Plan will be to transition patient onto long-acting injection. continue with Trazodone 100 mg daily at bedtime when necessary for insomnia. -When necessary Ativan and Haldol for agitation/aggression. -NRT - not needed as patient does not smoke -SW on board for discharge planning. Encouraged the patient to participate in milieu. Patient did not defer and will have full court hearing scheduled for 12/13/20 at 11:00am.
[2020-12-06] MEDS: NICOTINE 4 MG PO PRN ×8 (01:48→22:54)
[2020-12-06] MEDS: NICOTINE 14MG/24HR PATCH TRANSDERM SCH (07:58)
[2020-12-06] MEDS: PANTOPRAZOLE 40 MG TABLET PO SCH ×2 (07:58→20:56)
[2020-12-06] MEDS: BACITRACIN OINT 1 EACH PACKET TOPICAL SCH ×3 (07:58→20:56)
[2020-12-06] MEDS: PALIPERIDONE 6 MG TAB.ER.24 PO SCH (07:58)
[2020-12-06] MEDS: ATORVASTATIN 20 MG TAB PO SCH (07:58)
--- NOTE | 2020-12-06 10:20 | P.PN ---
Progress Note - Text Progress Note Date: 12/06/20 Interval History: Patient was seen wandering the hallways this morning [facility] and was a greeable to speak to advertising copywriter. Patient spoke today about a "ring leader" and states that he was "after the girls". She made several bizarre statements and was loose in associations today. He was not responding to internal stimuli however was difficult to redirect during conversation. He was mildly irritable and argumentative with advertising copywriter. Patient appeared to have some disorganized speech and thought process today. Apparently patient did not sleep well last night and was wandering the hallways according to nursing notes. He states that he slept "on and off". Patient continues to ramble and is illogical and loose at times. He shows very poor insight into his mental illness. He claims that his mood is "ok" today and is denying any anxiety or depression. At this time patient denies any current suicidal or homical ideations, intent or plan. Patient denies any auditory, visual hallucinations. Patient continues to state that he does not need medications and has been refusing them. Mental Status Exam: General Appearance: Patient appears to be elderly, stated age is alert, attempts to cooperate. Disorganized today Behavior: Patient is calmly seated without any agitated. Argumentative and irritable Speech: Patient's speech is fluent and nonpressured. Difficult to comprehend. Mood/Affect: Mood is "ok", affect is incongruent and constricted. Suicidality/Homicidality: Patient denies having any suicidal or homicidal ideation intent or plan. Perceptions: Patient denies any visual hallucinations and denies any auditory hallucinations Though content/process: Patient has minimal insight. Rambles at times. Disorganized thought process. Memory and concentration: AOX3, grossly intact for the purposes of this session Judgment and insight: Chronically poor Assessment Schizophrenia with acute exacerbation Plan: -Patient continues to meet criteria for inpatient psychiatric admission for symptom stabilization and safety. Patient has not signed adult voluntary form and medication consent and was placed in patient's chart. -Medications: continue with paliperidone 6 mg daily for mood stabilization/psychosis however patient has not been taking his medications. Plan will be to transition patient onto long-acting injection. continue with Trazodone 100 mg daily at bedtime when necessary for insomnia. -When necessary Ativan and Haldol for agitation/aggression. -NRT - not needed as patient does not smoke -SW on board for discharge planning. Encouraged the patient to participate in milieu. Patient did not defer and will have full court hearing scheduled for 12/13/20 at 11:00am.
[2020-12-06] MEDS: ACETAMINOPHEN TAB 325 MG TAB PO PRN ×2 (11:28→17:10)
[2020-12-07] MEDS: NICOTINE 4 MG PO PRN ×8 (02:43→23:15)
[2020-12-07] MEDS: ACETAMINOPHEN TAB 325 MG TAB PO PRN ×4 (05:17→23:15)
[2020-12-07] MEDS: NICOTINE 14MG/24HR PATCH TRANSDERM SCH (08:27)
[2020-12-07] MEDS: ATORVASTATIN 20 MG TAB PO SCH (08:27)
[2020-12-07] MEDS: PANTOPRAZOLE 40 MG TABLET PO SCH ×2 (08:27→21:18)
[2020-12-07] MEDS: BACITRACIN OINT 1 EACH PACKET TOPICAL SCH ×3 (08:27→21:18)
[2020-12-07] MEDS: PALIPERIDONE 6 MG TAB.ER.24 PO SCH (08:27)
--- NOTE | 2020-12-07 09:36 | P.PN ---
Progress Note - Text Progress Note Date: 12/07/20 Interval History: Patient was [facility] and was a greeable to speak to publications writer. Patient continues to be bizarre in his behavior and did endorse some paranoia and suspiciousness towards publications writer today. He rambles at times and spoke about his PCP and his medications and how he has not returned his phone calls. He also claims that he did not sleep well last night. She made several bizarre statements and was loose in associations today. He states that h e only went to one group yesterday but was vague about it. He was not responding to internal stimuli. Patient appeared to have some disorganized speech and thought process today. He shows very poor insight into his mental illness. He claims that his mood is "fine" today and is denying any anxiety or depression. At this time patient denies any current suicidal or homical ideations, intent or plan. Patient denies any auditory, visual hallucinations. Patient continues to state that he does not need medications and has been refusing them. Mental Status Exam: General Appearance: Patient appears to be elderly, stated age is alert, attempts to cooperate. Disorganized today Behavior: Patient is calmly seated without any agitated. Argumentative and irritable, improving mildly. suspicious Speech: Patient's speech is fluent and nonpressured. Difficult to comprehend at times Mood/Affect: Mood is "ok", affect is incongruent and constricted. Suicidality/Homicidality: Patient denies having any suicidal or homicidal ideation intent or plan. Perceptions: Patient denies any visual hallucinations and denies any auditory hallucinations Though content/process: Patient has minimal insight. Rambles at times. Disorganized thought process. Memory and concentration: AOX3, grossly intact for the purposes of this session Judgment and insight: Chronically poor Assessment Schizophrenia with acute exacerbation Plan: -Patient continues to meet criteria for inpatient psychiatric admission for symptom stabilization and safety. Patient has not signed adult voluntary form and medication consent and was placed in patient's chart. -Medications: continue with paliperidone 6 mg daily for mood stabilization/psychosis however patient has not been taking his medications. Plan will be to transition patient onto long-acting injection. continue with Trazodone 100 mg daily at bedtime when necessary for insomnia. -When necessary Ativan and Haldol for agitation/aggression. -NRT - not needed as patient does not smoke -SW on board for discharge planning. Encouraged the patient to participate in milieu. Patient did not defer and will have full court hearing scheduled for 12/13/20 at 11:00am.
[2020-12-08] MEDS: NICOTINE 4 MG PO PRN ×7 (01:55→21:32)
[2020-12-08] MEDS: ACETAMINOPHEN TAB 325 MG TAB PO PRN ×3 (08:01→21:35)
[2020-12-08] MEDS: BACITRACIN OINT 1 EACH PACKET TOPICAL SCH ×3 (08:06→21:41)
[2020-12-08] MEDS: PANTOPRAZOLE 40 MG TABLET PO SCH ×2 (08:06→20:34)
[2020-12-08] MEDS: ATORVASTATIN 20 MG TAB PO SCH (08:06)
[2020-12-08] MEDS: PALIPERIDONE 6 MG TAB.ER.24 PO SCH (08:06)
[2020-12-08] MEDS: NICOTINE 14MG/24HR PATCH TRANSDERM SCH (08:06)
--- NOTE | 2020-12-08 11:22 | P.PN ---
Progress Note - Text Progress Note Date: 12/08/20 Interval History: Patient was seen wandering the hallways this morning and was agreeable to speak to job specification writer. Patient continues to be bizarre in his behavior and his thought process. He spoke about other patients on the unit and asked what their "psychiatric condition" was. he did endorse some paranoia and suspiciousness towards job specification writer today. He rambles at times and spoke about his medications. He also claims that he has been taking "cat naps" duirng the day and not sleeping much at night time. he made several bizarre statements and was loose in associations today. He was not responding to internal stimuli. He was noted to be speaking to himself before job specification writer approached him to be interviewed. Patient appeared to have some disorganized speech and thought process today. He shows very poor insight into his mental illness. He claims that his mood is "ok" today and is denying any anxiety or depression. At this time patient denies any current suicidal or homical ideations, intent or plan. Patient denies any auditory, visual hallucinations. Patient continues to state that he does not need medications and has been refusing them. Mental Status Exam: General Appearance: Patient appears to be elderly, stated age is alert, attempts to cooperate. Disorganized today Behavior: Patient is calmly seated without any agitated. Argumentative and irritable, improving mildly. suspicious Speech: Patient's speech is fluent and nonpressured. Difficult to comprehend at times Mood/Affect: Mood is "ok", affect is incongruent and constricted. Suicidality/Homicidality: Patient denies having any suicidal or homicidal ideation intent or plan. Perceptions: Patient denies any visual hallucinations and denies any auditory hallucinations Though content/process: Patient has minimal insight. Rambles at times. Disorganized thought process. Memory and concentration: AOX3, grossly intact for the purposes of this session Judgment and insight: Chronically poor Assessment Schizophrenia with acute exacerbation Plan: -Patient continues to meet criteria for inpatient psychiatric admission for symptom stabilization and safety. Patient has not signed adult voluntary form and medication consent and was placed in patient's chart. -Medications: continue with paliperidone [address] daily [address] mood st abilization/psychosis however patient has not been taking his medications. Plan will be to transition patient onto long-acting injection. continue with Trazodone 100 mg daily at bedtime when necessary for insomnia. -When necessary Ativan and Haldol for agitation/aggression. -NRT - not needed as patient does not smoke -SW on board for discharge planning. Encouraged the patient to participate in [place]. Patient did not defer and will have full court hearing scheduled for 12/13/20 at 11:00am.
[2020-12-09] MEDS: NICOTINE 4 MG PO PRN ×9 (02:03→22:46)
[2020-12-09] MEDS: ACETAMINOPHEN TAB 325 MG TAB PO PRN ×4 (02:08→19:59)
[2020-12-09] MEDS: BACITRACIN OINT 1 EACH PACKET TOPICAL SCH ×3 (07:49→20:08)
[2020-12-09] MEDS: NICOTINE 14MG/24HR PATCH TRANSDERM SCH (07:49)
[2020-12-09] MEDS: PANTOPRAZOLE 40 MG TABLET PO SCH ×2 (07:49→20:08)
[2020-12-09] MEDS: ATORVASTATIN 20 MG TAB PO SCH (07:49)
[2020-12-09] MEDS: PALIPERIDONE 6 MG TAB.ER.24 PO SCH (07:50)
--- NOTE | 2020-12-09 11:26 | P.PN ---
Progress Note - Text Progress Note Date: 12/09/20 S&O: Patient was seen for follow-up examination. He is polite and pleasant and cooperative. He continues to refuse his psychiatric medication. Yesterday he did not take him and his nonpsychiatric medicines and the only thing he took was Nicorette gum. No reports of bizarre violent or aggressive behavior. Continues to be talkative and over inclusive. Expressed some disagreements with his other doctors and nurses. This is a right ambulatory male with adequate hygiene. He is wearing long pants now and does not expose his bruised knees. He is cooperative and pleasant. Does not show any psychomotor agitation or retardation. Speech is spontaneous relevant but is overinclusive. Denies hallucinations. Does not appear to be responding to internal stimuli. But he has some paranoid thinking about other people. Denies suicide and homicide thoughts. He is well oriented with good me alex concentration and general fund of knowledge. He insists on having his own business attorney instead of depending on court-appointed business attorney. A: Schizophrenia per records. Plan: Patient continues to meet criteria for inpatient psychiatric admission for symptom stabilization and safety. Continue therapies and supervision. He is waiting for court hearing on before we can start him on any medications if he is committed here.
[2020-12-10] MEDS: NICOTINE 4 MG PO PRN ×4 (00:52→18:52)
[2020-12-10] MEDS: ACETAMINOPHEN TAB 325 MG TAB PO PRN ×3 (04:50→21:07)
[2020-12-10] MEDS: PANTOPRAZOLE 40 MG TABLET PO SCH ×2 (08:37→21:11)
[2020-12-10] MEDS: PALIPERIDONE 6 MG TAB.ER.24 PO SCH (08:37)
[2020-12-10] MEDS: ATORVASTATIN 20 MG TAB PO SCH ×2 (08:37→15:42)
[2020-12-10] MEDS: BACITRACIN OINT 1 EACH PACKET TOPICAL SCH ×3 (08:37→21:22)
--- NOTE | 2020-12-10 12:41 | P.PN ---
Progress Note - Text Progress Note Date: 12/10/20 S&O: Patient was seen for follow-up examination. He does not have any particular complaints or concerns. This morning I saw him standing in the middle of the hallway. Per the note from nursing he has been engaging in bizarre behavior. Apparently he has been knocking on other people's doors, a sking the nurses to tuck him in and was asked not to engage in such behavior. When he was asked about this he denied. This is a right ambulatory male with adequate hygiene. He is polite friendly an d cooperative. He does not show any psychomotor agitation or retardation. His speech is spontaneous and over inclusive. His mood is cheerful and affect is appropriate to the thought content. He denies hallucinations but still has paranoid thinking. He denies suicide and homicide thoughts. He is well oriented with good general fund of knowledge concentration and calculation. A&P: Patient continues to meet criteria for inpatient psychiatric admission for symptom stabilization and safety. Continue therapies and supervision. He is waiting for court hearing on , before we can start him on any medications if he is committed here.
[2020-12-11] MEDS: BACITRACIN OINT 1 EACH PACKET TOPICAL SCH ×3 (08:51→21:10)
[2020-12-11] MEDS: ATORVASTATIN 20 MG TAB PO SCH (08:51)
[2020-12-11] MEDS: PALIPERIDONE 6 MG TAB.ER.24 PO SCH (08:51)
[2020-12-11] MEDS: PANTOPRAZOLE 40 MG TABLET PO SCH ×2 (08:51→21:10)
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
[2020-12-11] MEDS: ACETAMINOPHEN TAB 325 MG TAB PO PRN ×2 (11:08→21:28)
[2020-12-11] MEDS: NICOTINE POLACRILEX 2 MG GUM BUCCAL PRN (22:24)
[2020-12-11] MEDS: LORazepam 1 MG TAB PO PRN (23:49)
[2020-12-12] MEDS: NICOTINE POLACRILEX 2 MG GUM BUCCAL PRN ×7 (04:59→21:54)
[2020-12-12] MEDS: BACITRACIN OINT 1 EACH PACKET TOPICAL SCH ×3 (07:37→20:25)
[2020-12-12] MEDS: ATORVASTATIN 20 MG TAB PO SCH (07:38)
[2020-12-12] MEDS: PANTOPRAZOLE 40 MG TABLET PO SCH ×2 (07:38→20:25)
[2020-12-12] MEDS: PALIPERIDONE 6 MG TAB.ER.24 PO SCH (07:38)
[2020-12-12] MEDS: ACETAMINOPHEN TAB 325 MG TAB PO PRN ×4 (07:40→21:53)
--- NOTE | 2020-12-12 08:57 | P.PN ---
Progress Note - Text Progress Note Date: 12/12/20 Interval History: Patient was seen wandering the hallways this morning and was agreeable to speak to parts data writer. Patient appeared to be more directable today during the conversation. He asked parts data writer how he slept last night. He claims that his sleep cycle is off now from being in the hospital and had to take an ativan prn for anxiety. he did not endorse some paranoia and suspiciousness towards parts data writer today, however this has improved mildly. He continues to claim that he does not need any antipsyc hotic meds. He was not responding to internal stimuli. Patient appeared to have some disorganized speech and thought process today. He shows very poor insight into his mental illness. He claims that his mood is "ok" today and is denying any anxiety or depression. At this time patient denies any current suicidal or homical ideations, intent or plan. Patient denies any auditory, visual hallucinations. Patient continues to state that he does not need medications and has been refusing them. Mental Status Exam: General Appearance: Patient appears to be elderly, stated age is alert, attempts to cooperate. Disorganized Behavior: Patient is calmly seated without any agitated. more cooperative today. suspicious Speech: Patient's speech is fluent and nonpressured. Difficult to comprehend at times Mood/Affect: Mood is "ok", affect is incongruent and constricted. Suicidality/Homicidality: Patient denies having any suicidal or homicidal ideation intent or plan. Perceptions: Patient denies any visual hallucinations and denies any auditory hallucinations Though content/process: Patient has minimal insight. Rambles at times. Disorganized thought process. Memory and concentration: AOX3, grossly intact for the purposes of this session Judgment and insight: Chronically poor Assessment Schizophrenia with acute exacerbation Plan: -Patient continues to meet criteria for inpatient psychiatric admission for symptom stabilization and safety. Patient has not signed adult voluntary form and medication consent and was placed in patient's chart. -Medications: continue with paliperidone 6 mg daily for mood stabilization/psychosis however patient has not been taking his medications. Plan will be to transition patient onto long-acting injection. continue with Trazodone 100 mg daily at bedtime when necessary for insomnia. -When necessary Ativan and Haldol for agitation/aggression. -NRT - not needed as patient does not smoke -SW on board for discharge planning. Encouraged the patient to participate in milieu. Patient did not defer and will have full court hearing scheduled for 12/13/20 at 11:00am.
[2020-12-12] MEDS: LORazepam 1 MG TAB PO PRN (21:59)
[2020-12-13] MEDS: NICOTINE POLACRILEX 2 MG GUM BUCCAL PRN ×3 (04:18→19:32)
[2020-12-13] MEDS: ACETAMINOPHEN TAB 325 MG TAB PO PRN ×2 (04:19→16:52)
[2020-12-13] MEDS: PANTOPRAZOLE 40 MG TABLET PO SCH ×2 (07:45→19:33)
[2020-12-13] MEDS: ATORVASTATIN 20 MG TAB PO SCH (07:45)
[2020-12-13] MEDS: PALIPERIDONE 6 MG TAB.ER.24 PO SCH (07:46)
[2020-12-13] MEDS: BACITRACIN OINT 1 EACH PACKET TOPICAL SCH ×3 (07:46→19:34)
--- NOTE | 2020-12-13 09:22 | P.PN ---
Progress Note - Text Progress Note Date: 12/13/20 Interval History: Patient was seen standing in the hallways this morning and was agreeable to sp eak to inspector automatic typewriter. Patient had several complaints of his medications and states that he wants to take omeprazole ER and beleives that he does not need antipsychotic meds. He states that he did not sleep well last night and requested ativan prn to sleep and states that "I was in the hallways with a purpose". Patient appeared to be more directable today during the conversation. he did not endorse some paranoia and suspiciousness towards inspector automatic typewriter today, however this has improved mildly. He was not responding to internal stimuli. Patient appeared to have some disorganized thought process today. He states that he is going to some groups. He shows very poor insight into his mental illness. He claims that his mood is "fine" today and is denying any anxiety or depression. At this time patient denies any current suicidal or homical ideations, intent or plan. Patient denies any auditory, visual hallucinations. Patient continues to state that he does not need medications and has been refusing them. Mental Status Exam: General Appearance: Patient appears to be elderly, stated age is alert, attempts to cooperate. Disorganized Behavior: Patient is calmly seated without any agitated. more cooperative today. suspicious Speech: Patient's speech is fluent and nonpressured. Difficult to comprehend at times Mood/Affect: Mood is "ok", affect is incongruent and constricted. Suicidality/Homicidality: Patient denies having any suicidal or homicidal ideation intent or plan. Perceptions: Patient denies any visual hallucinations and denies any auditory hallucinations Though content/process: Patient has minimal insight. Rambles at times. Disorganized thought process. Memory and concentration: AOX3, grossly intact for the purposes of this session Judgment and insight: Chronically poor Assessment Schizophrenia with acute exacerbation Plan: -Patient continues to meet criteria for inpatient psychiatric admission for symptom stabilization and safety. Patient has not signed adult voluntary form a nd medication consent and was placed in patient's chart. -Medications: continue with paliperidone 6 mg daily for mood stabilization/psychosis however patient has not been taking his medications. Plan will be to transition patient onto long-acting injection. continue with Trazodone 100 mg daily at bedtime when necessary for insomnia. -When necessary Ativan and Haldol for agitation/aggression. -NRT - not needed as patient does not smoke -SW on board for discharge planning. Encouraged the patient to participate in milieu. Patient did not defer and will have full court hearing scheduled for 12/13/20 at 11:00am
[2020-12-13] MEDS: LORazepam 1 MG TAB PO PRN (19:36)
[2020-12-14] MEDS: NICOTINE POLACRILEX 2 MG GUM BUCCAL PRN ×5 (00:04→20:02)
[2020-12-14] MEDS: ACETAMINOPHEN TAB 325 MG TAB PO PRN ×3 (03:57→20:02)
--- NOTE | 2020-12-14 09:10 | P.PN ---
Progress Note - Text Progress Note Date: 12/14/20 Interval History: Patient was seen standing in the hallways talking with another patient and was agreeable to speak to marketing writer this morning. He was fairly upset about the judges court order yesterday and was speaking negatively about his old outpatient psychiatrist he used to have that claimed that he was "schizophrenic". He continues to be tangential/illogical at times and loose associations. He states that he did not sleep well last night. Patient appeared to be more directable today during the conversation. he did not endorse some paranoia and suspiciousness towards marketing writer today, however this has improved mildly. He was not responding to internal stimuli. Patient appeared to have some disorganized thought process today. He states that he is going to some groups. He continues to show very poor insight into his mental illness. He claims that his mood is "ok" today and is denying any anxiety or depression. At this time patient denies any current suicidal or homical ideations, intent or plan. Patient denies any auditory, visual hallucinations. Patient continues to state that he does not need medications and has been refusing them. Mental Status Exam: General Appearance: Patient appears to be elderly, stated age is alert, attempts to cooperate. Disorganized Behavior: Patient is calmly seated without any agitated. more cooperative today. suspicious Speech: Patient's speech is fluent and nonpressured. Difficult to comprehend at times Mood/Affect: Mood is "ok", affect is incongruent and constricted. Suicidality/Homicidality: Patient denies having any suicidal or homicidal ideation intent or plan. Perceptions: Patient denies any visual hallucinations and denies any auditory hallucinations Though content/process: Patient has minimal insight. Rambles at times. Disorganized thought process. Memory and concentration: AOX3, grossly intact for the purposes of this session Judgment and insight: Chronically poor Assessment Schizophrenia with acute exacerbation Plan: -Patient continues to meet criteria for inpatient psychiatric admission for symptom stabilization and safety. Patient has not signed adult voluntary form and medication consent and was placed in patient's chart. -Medications: continue with paliperidone 6 mg daily for mood stabilization/psychosis however patient has not been taking his medications. Plan will be to transition patient onto long-acting injection. If patient refuses PO invega then he is to receive IM haldol as per court order. continue with Trazodone 100 mg daily at bedtime when necessary for insomnia. -When necessary Ativan and Haldol for agitation/aggression. -NRT - not needed as patient does not smoke -SW on board for discharge planning. Encouraged the patient to participate in milieu. Patient had court hearing on 12/13 which resulted in a court order for treatment.
[2020-12-14] MEDS: ATORVASTATIN 20 MG TAB PO SCH (09:28)
[2020-12-14] MEDS: BACITRACIN OINT 1 EACH PACKET TOPICAL SCH ×3 (09:28→20:00)
[2020-12-14] MEDS: PANTOPRAZOLE 40 MG TABLET PO SCH ×2 (09:28→19:59)
[2020-12-14] MEDS: PALIPERIDONE 6 MG TAB.ER.24 PO SCH (09:29)
[2020-12-14] MEDS: HALOPERIDOL LACTATE 5 MG/ML 1 ML VIAL IM PRN (09:38)
[2020-12-14] MEDS: LORazepam 1 MG TAB PO PRN (20:02)
[2020-12-15] MEDS: ACETAMINOPHEN TAB 325 MG TAB PO PRN ×4 (03:42→18:53)
[2020-12-15] MEDS: NICOTINE POLACRILEX 2 MG GUM BUCCAL PRN ×2 (03:43→08:46)
[2020-12-15] MEDS: ATORVASTATIN 20 MG TAB PO SCH (08:43)
[2020-12-15] MEDS: PANTOPRAZOLE 40 MG TABLET PO SCH ×3 (08:43→21:22)
[2020-12-15] MEDS: BACITRACIN OINT 1 EACH PACKET TOPICAL SCH ×3 (08:44→21:22)
[2020-12-15] MEDS: HALOPERIDOL LACTATE 5 MG/ML 1 ML VIAL IM PRN (08:57)
[2020-12-15] MEDS: PALIPERIDONE 6 MG TAB.ER.24 PO SCH (09:03)
[2020-12-15] MEDS ORDERED: HALOPERIDOL LACTATE 5 MG/ML 1 ML VIAL IM PRN (11:45)
--- NOTE | 2020-12-15 11:50 | P.PN ---
Progress Note - Text Progress Note Date: 12/15/20 Interval History: Patient was seen lying in his bed this morning was agreeable to speak to senior underwriter. He was somewhat suspicious and cautious of senior underwriter today. He denied any overnight complaints and states that he is doing "just fine". He continues to be tangential/illogical at times and loose associations. He states that he did not sleep well last night. Patient appeared to be more directable today during the conversation. He claims that he does not believe that he is court ordered and claims that he needs to speak with his "new commercial litigation attorney". he continues to be fixated on his old medication regimen including omeprazole ER and atorvastatin and refuses to take any antipsychotic medication PO. He was not responding to internal stimuli. Patient appeared to have some disorganized thought process today. He continues to show very poor insight into his mental illness. He claims that his mood is "ok" today and is denying any anxiety or depression. At this time patient denies any current suicidal or homical ideations, intent or plan. Patient denies any auditory, visual hallucinations. Patient continues to state that he does not need medications and has been refusing them. Mental Status Exam: General Appearance: Patient appears to be elderly, stated age is alert, attempts to cooperate. Behavior: Patient is calmly seated without any agitated. more cooperative today. suspicious Speech: Patient's speech is fluent and nonpressured. Difficult to comprehend at times Mood/Affect: Mood is "fine", affect is incongruent and constricted. Suicidality/Homicidality: Patient denies having any suicidal or homicidal ideation intent or plan. Perceptions: Patient denies any visual hallucinations and denies any auditory hallucinations Though content/process: Patient has minimal insight. Rambles at times. Disorganized thought process. Memory and concentration: AOX3, grossly intact for the purposes of this session Judgment and insight: Chronically poor Assessment Schizophrenia with acute exacerbation Plan: -Patient continues to meet criteria for inpatient psychiatric admission for symp seven stabilization and safety. Patient has not signed adult voluntary form and medication consent and was placed in patient's chart. -Medications: Discontinued paliperidone and switch patient onto Haldol by mouth 4 mg twice a day for psychosis. Plan will be to transition patient onto long- acting injection. If patient refuses PO invega then he is to receive IM haldol as per court order. continue with Trazodone 100 mg daily at bedtime when necessary for insomnia. -When necessary Ativan and Haldol for agitation/aggression. -NRT - not needed as patient does not smoke -SW on board for discharge planning. Encouraged the patient to participate in milieu. Patient had court hearing on 12/13 which resulted in a court order for treatment.
[2020-12-15] MEDS: NICOTINE 4 MG PO PRN ×4 (15:21→21:24)
[2020-12-15] MEDS: LORazepam 1 MG TAB PO PRN (19:52)
[2020-12-16] MEDS: NICOTINE 4 MG PO PRN ×7 (03:01→23:18)
[2020-12-16] MEDS: ACETAMINOPHEN TAB 325 MG TAB PO PRN ×5 (03:03→23:17)
[2020-12-16] MEDS: ATORVASTATIN 20 MG TAB PO SCH (08:41)
[2020-12-16] MEDS: PANTOPRAZOLE 40 MG TABLET PO SCH ×2 (08:42→21:28)
[2020-12-16] MEDS: BACITRACIN OINT 1 EACH PACKET TOPICAL SCH ×3 (08:47→21:28)
--- NOTE | 2020-12-16 17:00 | P.PN ---
Progress Note - Text Progress Note Date: 12/16/20 Interval History: Patient was seen wandering the hallways and was directable and agreeable to sp dio with singer songwriter in the office. This is a 65-year-old male who was admitted due to increased agitation and delusions. Currently he is being treated for schizophrenia. Patient states that he refused Haldol last night. Patient states "I don't need medications, all I need is to be left alone in peace" . Patient been observed smiled inappropriately during the assessment. He demonstrated having loose association of thought process. He states "I miss my brother's birthday" says " I don't mind to show my cheeks to get the shot ". At this time patient denies any suicidal or homical ideations, intent or plan. Patient denies any auditory, visual hallucinations and denies any paranoia or delusions. It should be noted the patient is not adherent to his medications Mental Status Exam: General Appearance: Patient appears to be stated age is alert, directable, and cooperative. Behavior: Patient is calmly seated without any agitated behavior. Speech: Patient's speech is fluent and nonpressured. Mood/Affect: Mood is " Fine" , affect is inappropriate at times smiles out of context. Suicidality/Homicidality: Patient denies having any suicidal or homicidal ideation intent or plan. Perceptions: Patient denies any visual hallucinations and denies any auditory hallucinations Though content/process: Loose association Memory and concentration: AOX3, grossly intact for the purposes of this session Judgment and insight: Poor Assessment Schizophrenia with acute exacerbation Plan: -Patient continues to meet criteria for inpatient psychiatric admission for symptom stabilization and safety. -Medications: Continue Haldol 4 mg twice daily for psychosis. Continue efforts to improve his insight into the nature of his mental issues with the hope to improve management adherence. He might be a good candidate for long acting injectable. -When necessary Ativan and Haldol for agitation/aggression. -NRT - nicotine patch -SW on board for discharge planning. Encouraged the patient to participate in milieu. Currently awaiting deferral with ip attorney and court date.
[2020-12-16] MEDS: LORazepam 1 MG TAB PO PRN (21:36)
[2020-12-17] MEDS: ACETAMINOPHEN TAB 325 MG TAB PO PRN ×4 (02:46→18:51)
[2020-12-17] MEDS: NICOTINE 4 MG PO PRN ×6 (02:47→19:33)
[2020-12-17] MEDS: ATORVASTATIN 20 MG TAB PO SCH (08:40)
[2020-12-17] MEDS: PANTOPRAZOLE 40 MG TABLET PO SCH ×2 (08:45→20:21)
[2020-12-17] MEDS: BACITRACIN OINT 1 EACH PACKET TOPICAL SCH ×3 (08:46→20:19)
--- NOTE | 2020-12-17 11:40 | P.PN ---
Progress Note - Text Progress Note Date: 12/17/20 Interval History: Patient was seen wandering the hallways and was directable and agreeable to spe ak with journalists and other writers in the office. This is a 65-year-old male who was admitted due to increased agitation and delusions. Currently he is being treated for schizophrenia. Patient states that he took Haldol last night and this morning and says that he does not need to be put on psychotropics. Patient states that he also took one dose of Ativan to help him sleep. Patient states that she woke up this morning feeling tired which talked to be related to taking Ativan in addition to Haldol. Patient agreed to ask for trazodone for insomnia instead of Ativan. Patient states " last night I told everyone to see the full donis and one star ". Apparently the patient continues to demonstrate having loose association of thought process. At this time patient denies any suicidal or homical ideations, intent or plan. Patient denies any auditory, visual hallucinations and denies any paranoia or delusions. It should be noted the patient is not adherent to his medications Mental Status Exam: General Appearance: Patient appears to be stated age is alert, directable, and cooperative. Behavior: Patient is calmly seated without any agitated behavior. Speech: Patient's speech is fluent and nonpressured. Mood/Affect: Mood is " Fine" , affect is inappropriate at times smiles out of context. Suicidality/Homicidality: Patient denies having any suicidal or homicidal ideation intent or plan. Perceptions: Patient denies any visual hallucinations and denies any auditory hallucinations Though content/process: Loose association Memory and concentration: AOX3, grossly intact for the purposes of this session Judgment and insight: Poor Assessment Schizophrenia with acute exacerbation Plan: -Patient continues to meet criteria for inpatient psychiatric admission for symptom stabilization and safety. -Medications: Continue Haldol 4 mg twice daily for psychosis. Discussed with the patient to ask the nurse for trazodone for insomnia instead of Ativan . Continue efforts to improve his insight into the nature of his mental issues with the hope to improve management adherence. He might be a good candidate for long acting injectable. -When necessary Ativan and Haldol for agitation/aggression. -NRT - nicotine patch -SW on board for discharge planning. Encouraged the patient to participate in milieu. Currently awaiting deferral with city attorney and court date.
[2020-12-18 02:49] VITALS: RESP 16
[2020-12-18] MEDS: NICOTINE 4 MG PO PRN ×9 (04:18→22:14)
[2020-12-18] MEDS: ATORVASTATIN 20 MG TAB PO SCH (08:36)
[2020-12-18] MEDS: BACITRACIN OINT 1 EACH PACKET TOPICAL SCH ×3 (08:37→20:09)
[2020-12-18] MEDS: PANTOPRAZOLE 40 MG TABLET PO SCH ×2 (08:44→19:23)
[2020-12-18] MEDS: ACETAMINOPHEN TAB 325 MG TAB PO PRN ×3 (08:59→18:51)
[2020-12-18] MEDS ORDERED: BENZTROPINE MESYLATE 1 MG TAB PO PRN (11:53)
[2020-12-18] MEDS ORDERED: BENZTROPINE 2 MG/2 ML AMP IM PRN (11:54)
--- NOTE | 2020-12-18 12:01 | P.PN ---
Progress Note - Text Progress Note Date: 12/18/20 Interval History: Patient was seen lying in his bed this morning was agreeable to speak to typewriter tester. He appears to be more cooperative with an improved frustration tolerance and impulsivity. He denied any overnight complaints. He sttaes that at times he does feel some muscle cramps in his arms and attributes it to the haldol. Patient was offered cogentin however refused it at this time. He states that he is doing "just fine" and continues to have chronically poor insight. He appears to be imp roving in terms of his thought process today, not enorsing any delusions or paranoia. He states that he did sleep well last night. Patient appeared to be more directable today during the conversation. He claims that he wants to speak with his contract attorney once again today in person. he continues to be fixated on his old medication regimen including omeprazole ER. He was not responding to internal stimuli. He claims that his mood is "ok" today and is denying any anxiety or depression. At this time patient denies any current suicidal or homical ideations, intent or plan. Patient denies any auditory, visual hallucinations. Mental Status Exam: General Appearance: Patient appears to be elderly, stated age is alert, attempts to cooperate. Behavior: Patient is calmly seated without any agitated. more cooperative today. Speech: Patient's speech is fluent and nonpressured. Difficult to comprehend at times Mood/Affect: Mood is "fine", affect is incongruent and constricted. Suicidality/Homicidality: Patient denies having any suicidal or homicidal ideation intent or plan. Perceptions: Patient denies any visual hallucinations and denies any auditory hallucinations Though content/process: Patient has minimal insight, which is chronic. Rambles at times. more organized thought process today. no delusions. Memory and concentration: AOX3, grossly intact for the purposes of this session Judgment and insight: Chronically poor, improving mildly Assessment Schizophrenia with acute exacerbation Plan: -Patient continues to meet criteria for inpatient psychiatric admission for symptom stabilization and safety. Patient has not signed adult voluntary form and medication consent and was placed in patient's chart. -Medications: continue with Haldol by mouth 4 mg twice a day for psychosis. P jessie will be to transition patient onto long-acting injection Haldol D 100mg IM today to ensure compliance. Added cogentin both Im and PO prn for eps/acute dystonic reaction. If patient refuses PO Haldol then he is to receive IM haldol as per court order. continue with Trazodone 100 mg daily at bedtime when necessary for insomnia. -When necessary Ativan and Haldol for agitation/aggression. -NRT - not needed as patient does not smoke -SW on board for discharge planning. Encouraged the patient to participate in milieu. Patient had court hearing on 12/13 which resulted in a court order for treatment. likely discharge in two days.
[2020-12-18] MEDS ORDERED: HALOPERIDOL DECANOATE 100 MG/ML 1 ML VIAL IM ONE (16:00)
[2020-12-19] MEDS: NICOTINE 4 MG PO PRN ×7 (03:50→21:36)
[2020-12-19] MEDS: ACETAMINOPHEN TAB 325 MG TAB PO PRN ×3 (03:58→19:34)
[2020-12-19] MEDS: BACITRACIN OINT 1 EACH PACKET TOPICAL SCH ×3 (08:37→19:38)
[2020-12-19] MEDS: ATORVASTATIN 20 MG TAB PO SCH ×2 (08:39→10:28)
[2020-12-19] MEDS: PANTOPRAZOLE 40 MG TABLET PO SCH ×2 (08:39→19:34)
[2020-12-19] MEDS ORDERED: HALOPERIDOL LACTATE 5 MG/ML 1 ML VIAL IM PRN (10:07)
--- NOTE | 2020-12-19 10:15 | P.PN ---
Progress Note - Text Progress Note Date: 12/19/20 Interval History: Patient was seen in group this morning was agreeable to speak to rewriter in the office. He appears to be more cooperative with an improved frustration tolerance today with rewriter. He contineus to ramble at times however is more logical and clear in his thought process. He denied any overnight complaints. He sttaes that at times he does feel some muscle cramps in his arms and attributes it to the haldol however continues to refuse cogentin or any other treatment for it. He states that he is doing "fine" and continues to have chronically poor insight about his schizophrenia and condition and need for treatment. He is not enorsing any delusions or paranoia. He states that he did sleep well last night. He was not responding to internal stimuli. He claims that his mood is "fine" today and is denying any anxiety or depression. At this time patient denies any current suicidal or homical ideations, intent or plan. Patient denies any auditory, visual hallucinations. Mental Status Exam: General Appearance: Patient appears to be elderly, stated age is alert, attempts to cooperate. Behavior: Patient is calmly seated without any agitated. more cooperative today. Speech: Patient's speech is fluent and nonpressured. Mood/Affect: Mood is "ok", affect is incongruent and constricted. Suicidality/Homicidality: Patient denies having any suicidal or homicidal ideation intent or plan. Perceptions: Patient denies any visual hallucinations and denies any auditory hallucinations Though content/process: Patient has minimal insight, which is chronic. Rambles at times. more organized thought process today. no delusions. Memory and concentration: AOX3, grossly intact for the purposes of this session Judgment and insight: Chronically poor, improving mildly Assessment Schizophrenia with acute exacerbation Plan: -Patient continues to meet criteria for inpatient psychiatric admission for symptom stabilization and safety. Patient has not signed adult voluntary form and medication consent and was placed in patient's chart. -Medications: decrease Haldol by mouth 2 mg twice a day for psychosis. He received long-acting injection Haldol D 100mg IM on 12/18/20 to ensure compliance and will be due [id number], on 01/08/21. cogentin both IM and PO prn for eps/acute dystonic reaction. If patient refuses PO Haldol then he is to receive IM haldol as per court order. Trazodone 100 mg daily at bedtime when necessary for insomnia. -When necessary Ativan and Haldol for agitation/aggression. -NRT - not needed as patient does not smoke -SW on board for discharge planning. Encouraged the patient to participate in milieu. Patient had court hearing on 12/13 which resulted in a court order for treatment. likely discharge tomorrow. will recommend pt to be followed by ACT team
[2020-12-19 14:17] VITALS: BMI 25.7
[2020-12-20] MEDS: NICOTINE 4 MG PO PRN ×3 (06:18→10:55)
[2020-12-20] MEDS: ACETAMINOPHEN TAB 325 MG TAB PO PRN (06:19)
[2020-12-20 06:36] VITALS: BP 141/63; PULSE 85; TEMP 97.7
[2020-12-20] MEDS: PANTOPRAZOLE 40 MG TABLET PO SCH (08:39)
[2020-12-20] MEDS: BACITRACIN OINT 1 EACH PACKET TOPICAL SCH (08:39)
[2020-12-20] MEDS: ATORVASTATIN 20 MG TAB PO SCH (08:40)
--- NOTE | 2020-12-20 09:51 | P.DS ---
Providers Date of admission: 11/25/20 16:04 Expected date of discharge: 12/20/20 Attending physician: Slick Amaya MD Consults: 11/25/20 17:15 Consult Physician Routine Consulting Provider: Asia Ortiz Consult Reason/Comments: New Admission H & P Do you want consulting provider notified?: Already Contacted Primary care physician: Stated None - Discharge Diagnosis(es) (1) Schizophrenia, chronic with acute exacerbation Current Visit: Yes Status: Acute Priority: High Hospital Course: Admission HPI: Admission note was completed by Dr. Olmstead "Yayo is a 65-year-old male who has a history of severe and persistent mental illness katie gnosed as schizophrenia. I reviewed the medical record and attempted to interview the patient. He was markedly disorganized and unable to provide a coherent history. According to his brother he stopped taking all psychotropic medications approximately 1 year ago. The EPS nurse spoke with his brother, Neel, who may also be the legal guardian. Neel stated that Yayo's behavior changed 4-5 weeks prior to admission. He became increasingly paranoid, aggressive and agitated. Over the last few weeks his condition has deteriorated and the police were called to his apartment several times due to his behavior. Neel called the police for a wellness check. The police brought him to hospital and completed a Petition that read: Yelling and screaming, talking about people hiding, sneaking in and out of his apartment. Male box is recording him. People are against him. He was markedly agitated in the ED to where his behavior required IM medications as well as restraint. He was admitt ed to the psychiatric unit on one-to-one with security." Hospital course: Upon admission to the unit patient was initially psychotic and aggressive. Patient was however admitted involuntarily and petition and certificate for follow-up with the courts. Patient ended up not deferring with his assistant attorney general and proceeded with a full court hearing which resulted in a court order for mandated treatment on 12/13. Patient was initially aggressive and agitated and required a one-to-one security and received multiple IM prn doses for agitation. Patient refused medications mainly up until the court order and then continued to refuses invega and was agreeable to switched onto haldol PO. He was titrated up to a dose of 4 mg twice a day Haldol by mouth for psychosis and patient was given a Haldol D long-acting dose 100 mg on 12/18/20 and will be due for his next 100 mg dose on 01/08. He complained of minor stiffness in his arms while he was taking Haldol by mouth however this improved as the dose was titrated down and patient was offered Cogentin or Benadryl to help with the EPS reaction however patient declined it. Patient spoke of his stressors and engaged in therapy both group and individual. Patient was also seen by medical team for history and physical exam. Throughout the course of the hospitalization patient gradually improved with regards to psychosis, mood, sleep and returned back to his baseline level of functioning. On the day of discharge patient denied any suicidal or homicidal ideations intent or plan denied any auditory or visual hallucinations. Patient endorsed wanting to live for his health and future. The patient denied any access to guns or weapons. Patient denied any paranoia and did not endorse any delusions. Patient does not have a significant history of substance abuse however was counseled on abstaining from all substances including alcohol and marijuana. Patient was also counseled on the medications and need for regular compliance and was encouraged to follow-up with their outpatient appointment for mental health and also for primary care. Prior to discharge a family meeting will be arranged by manager social to answer any questions and ensure safety upon discharge. Mental status exam: General Appearance: Patient appears to be thin, elderly, stated age is alert, directable, and cooperative. Patient is in no acute distress and has improved hy giene and grooming Behavior: Patient is calmly seated without any agitated behavior. Speech: Patient's speech is fluent and nonpressured. Mood/Affect: Patient reports their mood is "good", affect is congruent and constricted Suicidality/Homicidality: Patient denies having any suicidal or homicidal ideation intent or plan. Perceptions: Patient denies any auditory or visual hallucinations. Though content/process: There is no evidence of any delusional thought content and thought process is linear and goal-directed. Continues to ramble at times. Memory and concentration: AOX3, grossly intact for the purposes of this session. Can spell "WORLD" backwards correctly. Judgment and insight: chronically poor, however has improved with guarded prognosis Impression: Schizophrenia chronic with acute exacerbation. Plan: -Continue with discharge today as patient has improved and stabilized psychiatrically and is not currently an imminent threat to himself and/or others. Patient will remain at chronically elevated risk for harm to self and/or others due to his chronically poor insight/judgment -Continue medications: Haldol by mouth was tapered off and patient is now on Haldol D1 100 mg every 3 weeks, last dose was given on 12/18 and next dose will be due on 01/08/21. -Patient was counseled on the need for medication compliance and appropriate follow-up at mental health and also primary care for medical issues. Patient verbalized understanding and agreed. -Social work to arrange for and conduct family meeting to ensure safety upon discharge and answer any questions/concerns. Social work also to arrange for patients follow up appointments with [facility] for psychiatric care along with follow up with primary care provider. Strongly encouraged [facility] to refer patient to ACT team for closer moniutoring due to patients non compliance. -Patient counseled on abstaining from recreational drugs and marijuana and alcohol. Was informed/educated on the adverse effects on their physical and ment al health. Patient verbally agreed and understood. -Patient was instructed to return to the hospital or seek immediate medical care if their psychiatric or medical symptoms do worsen or reoccur. Allergies Allergy/AdvReac Type Severity Reaction Status Date / Time NSAIDS (Non-Steroidal AdvReac Nausea Verified 12/01/20 12:57 Anti-Inflamma Laboratory Results WBC 10.0 k/uL (3.8-10.6) 11/25/20 10:31 RBC 4.59 m/uL (4.30-5.90) 11/25/20 10:31 Hgb 14.9 gm/dL (13.0-17.5) 11/25/20 10:31 Hct 43.0 % (39.0-53.0) 11/25/20 10:31 MCV 93.6 fL (80.0-100.0) 11/25/20 10:31 MCH 32.4 pg (25.0-35.0) 11/25/20 10:31 MCHC 34.6 g/dL (31.0-37.0) 11/25/20 10:31 RDW 12.1 % (11.5-15.5) 11/25/20 10:31 Plt Count 263 k/uL (150-450) 11/25/20 10:31 MPV 6.8 11/25/20 10:31 Neutrophils % 79 % 11/25/20 10:31 Lymphocytes % 12 % 11/25/20 10:31 Monocytes % 6 % 11/25/20 10:31 Eosinophils % 1 % 11/25/20 10:31 Basophils % 0 % 11/25/20 10:31 Neutrophils # 8.0 k/uL (1.3-7.7) H 11/25/20 10:31 Lymphocytes # 1.3 k/uL (1.0-4.8) 11/25/20 10:31 Monocytes # 0.6 k/uL (0-1.0) 11/25/20 10:31 Eosinophils # 0.1 k/uL (0-0.7) 11/25/20 10:31 Basophils # 0.0 k/uL (0-0.2) 11/25/20 10:31 Sodium 137 mmol/L (137-145) 11/25/20 10:31 Potassium 4.1 mmol/L (3.5-5.1) 11/25/20 10:31 Chloride 102 mmol/L (98-107) 11/25/20 10:31 Carbon Dioxide 25 mmol/L (22-30) 11/25/20 10:31 Anion Gap 10 mmol/L 11/25/20 10:31 BUN 24 mg/dL (9-20) H 11/25/20 10:31 Creatinine 0.69 mg/dL (0.66-1.25) 11/25/20 10:31 Est GFR (CKD-EPI)AfAm >90 (>60 ml/min/1.73 sqM) 11/25/20 10:31 Est GFR (CKD-EPI)NonAf >90 (>60 ml/min/1.73 sqM) 11/25/20 10:31 Glucose 173 mg/dL (74-99) H 11/25/20 10:[address] Glu mg/dL 103 11/25/20 10:31 Hemoglobin A1c 5.2 % (4.0-6.0) 11/25/20 10:31 Calcium 9.5 mg/dL (8.4-10.2) 11/25/20 10:31 Total Bilirubin 0.7 mg/dL (0.2-1.3) 11/25/20 10:31 AST 58 U/L (17-59) 11/25/20 10:31 ALT 33 U/L (4-49) 11/25/20 10:31 Alkaline Phosphatase 74 U/L (38-126) 11/25/20 10:31 Total Protein 7.2 g/dL (6.3-8.2) 11/25/20 10:31 Albumin 4.4 g/dL (3.5-5.0) 11/25/20 10:31 Triglycerides 101.0 mg/dL (0.0-149.0) 11/25/20 10:31 Cholesterol 119 mg/dL (0-200) 11/25/20 10:31 LDL Cholesterol, Calc 56.8 mg/dL (0.0-131.0) 11/25/20 10:31 VLDL Cholesterol, Calc 20.20 mg/dL (5.00-40.00) 11/25/20 10:31 HDL Cholesterol 42.0 mg/dL (40.0-60.0) 11/25/20 10:31 Cholesterol/HDL Ratio 2.83 11/25/20 10:31 TSH 1.280 mIU/L (0.465-4.680) 11/25/20 10:31 Urine Color Yellow 11/25/20 05:40 Urine Appearance Clear (Clear) 11/25/20 05:40 Urine pH 6.5 (5.0-8.0) 11/25/20 05:40 Ur Specific Alexander 1.019 (1.001-1.035) 11/25/20 05:40 Urine Protein Trace (Negative) H 11/25/20 05:40 Urine Glucose (UA) Negative (Negative) 11/25/20 05:40 Urine Ketones 2+ (Negative) H 11/25/20 05:40 Urine Blood Negative (Negative) 11/25/20 05:40 Urine Nitrite Negative (Negative) 11/25/20 05:40 Urine Bilirubin Negative (Negative) 11/25/20 05:40 Urine Urobilinogen <2.0 mg/dL (<2.0) 11/25/20 05:40 Ur Leukocyte Esterase Negative (Negative) 11/25/20 05:40 Urine Opiates Screen Not Detected (NotDetected) 11/25/20 05:51 Ur Oxycodone Screen Not Detected (NotDetected) 11/25/20 05:51 Urine Methadone Screen Not Detected (NotDetected) 11/25/20 05:51 Ur Propoxyphene Screen Not Detected (NotDetected) 11/25/20 05:51 Ur Barbiturates Screen Not Detected (NotDetected) 11/25/20 05:51 U Tricyclic Antidepress Not Detected (NotDetected) 11/25/20 05:51 Ur Phencyclidine Scrn Not Detected (NotDetected) 11/25/20 05:51 Ur Amphetamines Screen Not Detected (NotDetected) 11/25/20 05:51 U Methamphetamines Scrn Not Detected (NotDetected) 11/25/20 05:51 U Benzodiazepines Scrn Not Detected (NotDetected) 11/25/20 05:51 Urine Cocaine Screen Not Detected (NotDetected) 11/25/20 05:51 U Marijuana (THC) Screen Not Detected (NotDetected) 11/25/20 05:51 Serum Alcohol <10 mg/dL 11/24/20 13:24 Coronavirus (PCR) Not Detected (Not Detectd) 11/25/20 05:40 Vital Signs Temp 97.7 F 12/20/20 06:14 Pulse 85 12/20/20 06:14 Resp 16 12/20/20 06:14 BP 141/63 12/20/20 06:14 Pulse Ox 96 12/16/20 03:09 Intake & Output 12/19/20 12/20/20 12/20/20 18:59 06:59 18:59 Weight 76.9 kg Patient Condition at Discharge: Stable Plan - Discharge Summary Discharge Rx Participant: No New Discharge Prescriptions: New Haloperidol Decanoate [Haldol D] 100 mg IM Q21D #1 vial Nicotine Polacrilex [Nicorette] 2 mg BUCCAL Q4HR PRN 28 Days gum PRN Reason: Nicotine Cravings Continue Atorvastatin [Lipitor] 20 mg PO HS 30 Days tab Omeprazole 20 mg PO BID 30 Days cap Discontinued traZODone HCL [Desyrel] 75 mg PO HS PRN PRN Reason: Insomnia Discharge Medication List Atorvastatin [Lipitor] 20 mg PO HS 30 Days tab 12/20/20 [Rx] Haloperidol Decanoate [Haldol D] 100 mg IM Q21D #1 vial 07/28/21 [Rx] Nicotine Polacrilex [Nicorette] 2 mg BUCCAL Q4HR PRN 28 Days gum 12/20/20 [Rx] Omeprazole 20 mg PO BID 30 Days cap 12/20/20 [Rx] Follow up Appointment(s)/Referral(s): [facility] [NON-STAFF] - 1 Week Patient Instructions/Handouts: How to Stop Smoking (DC), Schizophrenia (DC) Activity/Diet/Wound Care/Special Instructions: Activity and diet as tolerated. Avoid the use of street drugs and alcohol. Take all medications as prescribed. When you are in need of refills on your medications please contact your medical provider and/or outpatient psychiatrist to have this done. Please go to scheduled outpatient appointment for aftercare treatment. If symptoms return or become worse, call the crisis line at and/or go to the nearest emergency room for evaluation. Discharge Disposition: HOME SELF-CARE
== END 2020-12-20 13:03 | disposition home or self-care (01) | DRG 885 ==
LOC: EC 12:03 → 3MHU 11-25 16:04
PROVIDERS: ADMIT Psychiatry & Neurology Psychiatry; ATTEND Psychiatry & Neurology Psychiatry
DX: F25.9 Schizoaffective disorder, unspecified (principal); R45.851 Suicidal ideations; F31.9 Bipolar disorder, unspecified; E78.5 Hyperlipidemia, unspecified; F41.9 Anxiety disorder, unspecified; G47.00 Insomnia, unspecified; Z85.828 Personal history of other malignant neoplasm of skin; Z87.891 Personal history of nicotine dependence; Z91.19 Patient's noncompliance with other medical treatment and regimen; F32.9 Major depressive disorder, single episode, unspecified; M19.90 Unspecified osteoarthritis, unspecified site; Z79.899 Other long term (current) drug therapy; L30.9 Dermatitis, unspecified; I83.90 Asymptomatic varicose veins of unspecified lower extremity; S80.212A Abrasion, left knee, initial encounter; S80.211A Abrasion, right knee, initial encounter
CPT/HCPCS: 36415; 80048; 80053; 80061; 80306; 80320; 81003; 83036; 84443; 85025; 87635; 96361; 96372; 96374; 96376; 99285

== ENCOUNTER 2020-12-26 16:49 | Inpatient (IN) | payer MEDICARE, BC ==
--- NOTE | 2020-12-26 18:13 | ED ---
General Adult HPI - General Chief complaint: Psychiatric Symptoms Stated complaint: Mental Health Time Seen by Provider: 12/26/20 17:05 Source: patient, RN notes reviewed, old records reviewed Mode of arrival: ambulatory Limitations: no limitations - History of Present Illness Initial comments: This is a 65-year-old male who is blood in the custody of the police because he has a court order petition to be evaluated in the hospital. According to the security police officer the family member that called the cords stated he has been acting violently and making threats of harming other people. Patient also missed a couple of appointments and they wanted him to come in to be evaluated. Patient denies any homicidal or suicidal ideations patient denies hearing any voices or seeing anything abnormal. Patient denies any physical complaints today. - Related Data Previous Rx's Medication Instructions Recorded Atorvastatin [Lipitor] 20 mg PO HS 30 Days tab 12/20/20 Haloperidol Decanoate [Haldol D] 100 mg IM Q21D #1 vial 12/20/20 Nicotine Polacrilex [Nicorette] 2 mg BUCCAL Q4HR PRN 28 Days gum 12/20/20 Omeprazole 20 mg PO BID 30 Days cap 12/20/20 Allergies Allergy/AdvReac Type Severity Reaction Status Date / Time NSAIDS (Non-Steroidal AdvReac Nausea Verified 12/26/20 18:37 Anti-Inflamma Review of Systems ROS Statement: Those systems with pertinent positive or pertinent negative responses have been documented in the HPI. ROS Other: All systems not noted in ROS Statement are negative. Past Medical History Past Medical History: Cancer, Hyperlipidemia, Osteoarthritis (OA), Pneumonia, Skin Disorder Additional Past Medical History / Comment(s): varicose veins, eczema, hx skin cancer History of Any Multi-Drug Resistant Organisms: None Reported Past Surgical History: Orthopedic Surgery Additional Past Surgical History / Comment(s): ORIF rt ankle and lower leg x 3- pins and screws/later removed, removal of skin cancer on lt hinduism, guillaume cataracts Past Anesthesia/Blood Transfusion Reactions: No Reported Reaction Past Psychological History: Anxiety, Bipolar, Depression, Schizoaffective Disorder Smoking Status: Former smoker Past Alcohol Use History: Rare Past Drug Use History: None Reported - Past Family History Father History Unknown: Yes Mother Family Medical History: Cancer General Exam - General Exam Comments Initial Comments: GENERAL: Patient is well-developed and well-nourished. Patient is nontoxic and well- hydrated and is in no acute distress. ENT: Neck is soft and supple. No significant lymphadenopathy is noted. Oropharynx is clear. Moist mucous membranes. Neck has full range of motion without eliciting any pain. EYES: The sclera were anicteric and conjunctiva were pink and moist. Extraocular movements were intact and pupils were equal round and reactive to light. Eyelids were unremarkable. PULMONARY: Unlabored respirations. Good breath sounds bilaterally. No audible rales rhonchi or wheezing was noted. CARDIOVASCULAR: There is a regular rate and rhythm without any murmurs gallops or rubs. ABDOMEN: Soft and nontender with normal bowel sounds. SKIN: Skin is clear with no lesions or rashes and otherwise unremarkable. NEUROLOGIC: Patient is alert and oriented x3. Cranial nerves II through XII are grossly intact. Motor and sensory are also intact. Normal speech, volume and content. Symmetrical smile. MUSCULOSKELETAL: Normal extremities with adequate strength and full range of motion. LYMPHATICS: No significant lymphadenopathy is noted PSYCHIATRIC: Patient is acting normally toward me and the security police officer. Patient denies any suicidal homicidal ideations patient denies any delusions or hallucinations. Limitations: no limitations Course Vital Signs 12/26/20 17:03 Temperature 98 F Pulse Rate 82 Respiratory 16 Rate Blood Pressure 137/57 O2 Sat by Pulse 97 Oximetry Medical Decision Making - Medical Decision Making EPS evaluated the patient and determined the patient needed to be admitted the patient will be admitted and psychiatrist was contacted and he was in agreement. - Lab Data Lab Results 12/26/20 Range/Units 18:30 Urine Opiates Screen Not Detected (NotDetected) Ur Oxycodone Screen Not Detected (NotDetected) Urine Methadone Screen Not Detected (NotDetected) Ur Propoxyphene Screen Not Detected (NotDetected) Ur Barbiturates Screen Not Detected (NotDetected) U Tricyclic Antidepress Not Detected (NotDetected) Ur Phencyclidine Scrn Not Detected (NotDetected) Ur Amphetamines Screen Not Detected (NotDetected) U Methamphetamines Scrn Not Detected (NotDetected) U Benzodiazepines Scrn Not Detected (NotDetected) Urine Cocaine Screen Not Detected (NotDetected) U Marijuana (THC) Screen Not Detected (NotDetected) Disposition Clinical Impression: Acute psychosis Disposition: ADMITTED IP TO THIS HOSP Referrals: Ashish Card MD [Primary Care Provider] - 1-2 days Time of Disposition: 19:48
[2020-12-26 19:31] LABS: Amphetamine Screen,Urine Not Detected (NotDetected); Barbiturate Screen,Urine Not Detected (NotDetected); Benzodiazepines Screen,Urine Not Detected (NotDetected); Cocaine Screen,Urine Not Detected (NotDetected); Methadone Screen, Urine Not Detected (NotDetected); Opiate Screen,Urine Not Detected (NotDetected); Oxycodone Screen, Urine Not Detected (NotDetected); Phencyclidine Screen,Urine Not Detected (NotDetected); Tricyclic Antidepressant,Urine Not Detected (NotDetected); Urn Cannabinoid Scrn Not Detected (NotDetected)
[2020-12-26] MEDS ORDERED: NICOTINE POLACRILEX 2 MG MUCOUS MEM PRN (20:46)
[2020-12-26] MEDS ORDERED: GUM MUCOUS MEM PRN (20:46)
[2020-12-26] MEDS ORDERED: MAG HYDROX/AL HYDROX/SIMETH 30 ML CUP PO PRN (20:47)
[2020-12-26] MEDS ORDERED: MAGNESIUM HYDROXIDE 2,400 MG/10 ML CUP PO PRN (20:47)
[2020-12-26] MEDS ORDERED: LORazepam 1 MG TAB PO PRN (20:47)
[2020-12-26] MEDS ORDERED: haloperidoL 5 MG TAB PO PRN (20:49)
[2020-12-26] MEDS ORDERED: LORazepam 2 MG/ML INJ IM PRN (20:49)
[2020-12-26] MEDS ORDERED: HALOPERIDOL LACTATE 5 MG/ML 1 ML VIAL IM PRN (20:49)
[2020-12-26] MEDS: ACETAMINOPHEN TAB 325 MG TAB PO PRN (21:26)
[2020-12-26] MEDS: PANTOPRAZOLE 40 MG TABLET PO SCH (21:49)
[2020-12-26] MEDS: ATORVASTATIN 20 MG TAB PO SCH (21:49)
[2020-12-26] MEDS: NICOTINE POLACRILEX 2 MG GUM BUCCAL PRN (22:36)
[2020-12-27] MEDS: NICOTINE POLACRILEX 2 MG GUM BUCCAL PRN ×5 (04:27→20:07)
[2020-12-27] MEDS: ACETAMINOPHEN TAB 325 MG TAB PO PRN ×4 (05:02→20:04)
[2020-12-27 07:04] LABS: ALT 29 U/L (4-49); AST 47 U/L (17-59); African American GFR (CKD) >90 (>60 ml/min/1.73 sqM); Albumin 4.6 g/dL (3.5-5.0); Alkaline Phosphatase 87 U/L (38-126); Anion Gap 10 mmol/L; Blood Urea Nitrogen 8 mg/dL (9-20); Calcium 10.5 mg/dL (8.4-10.2); Carbon Dioxide 29 mmol/L (22-30); Chloride 106 mmol/L (98-107); Glucose 115 mg/dL (74-99); Non-African American GFR(CKD) >90 (>60 ml/min/1.73 sqM); Potassium 5.1 mmol/L (3.5-5.1); Sodium 145 mmol/L (137-145); Total Bilirubin 0.5 mg/dL (0.2-1.3); Total Protein 7.3 g/dL (6.3-8.2)
[2020-12-27 07:43] LABS: Basophils # (A) 0.1 k/uL (0-0.2); Basophils % (A) 1 %; Eosinophils # (A) 0.2 k/uL (0-0.7); Eosinophils % (A) 3 %; HCT 45.9 % (39.0-53.0); HGB 15.1 gm/dL (13.0-17.5); Lymphocytes # (A) 1.7 k/uL (1.0-4.8); Lymphocytes % (A) 25 %; MCH 32.5 pg (25.0-35.0); MCV 98.4 fL (80.0-100.0); Mean Platelet Volume 7.3; Monocytes # (A) 0.3 k/uL (0-1.0); Monocytes % (A) 5 %; Neutrophils # (A) 4.3 k/uL (1.3-7.7); Neutrophils % (A) 64 %; Platelet Count 222 k/uL (150-450); RBC 4.66 m/uL (4.30-5.90); RDW 12.9 % (11.5-15.5); WBC 6.8 k/uL (3.8-10.6)
[2020-12-27] MEDS: PANTOPRAZOLE 40 MG TABLET PO SCH ×2 (09:09→20:01)
[2020-12-27] MEDS ORDERED: BENZTROPINE MESYLATE 0.5 MG TAB PO PRN (09:30)
--- NOTE | 2020-12-27 09:56 | P.HP ---
Psychiatric H&P - . H&P Date: 12/27/20 History & Physical: Allergies Allergy/AdvReac Type Severity Reaction Status Date / Time NSAIDS (Non-Steroidal AdvReac Nausea Verified 12/26/20 18:37 Anti-Inflamma Vital Signs Temp 97.9 F 12/27/20 02:24 Pulse 68 12/27/20 02:24 Resp 18 12/27/20 02:24 BP 123/55 12/27/20 02:24 Pulse Ox 97 12/27/20 02:24 Intake & Output 12/26/20 12/27/20 12/27/20 18:59 06:59 18:59 Weight 77.111 kg 73.936 kg Laboratory Last Values WBC 6.8 k/uL (3.8-10.6) 12/27/20 06:30 RBC 4.66 m/uL (4.30-5.90) 12/27/20 06:30 Hgb 15.1 gm/dL (13.0-17.5) 12/27/20 06:30 Hct 45.9 % (39.0-53.0) 12/27/20 06:30 MCV 98.4 fL (80.0-100.0) 12/27/20 06:30 MCH 32.5 pg (25.0-35.0) 12/27/20 06:30 MCHC 33.0 g/dL (31.0-37.0) 12/27/20 06:30 RDW 12.9 % (11.5-15.5) 12/27/20 06:30 Plt Count 222 k/uL (150-450) 12/27/20 06:30 MPV 7.3 12/27/20 06:30 Neutrophils % 64 % 12/27/20 06:30 Lymphocytes % 25 % 12/27/20 06:30 Monocytes % 5 % 12/27/20 06:30 Eosinophils % 3 % 12/27/20 06:30 Basophils % 1 % 12/27/20 06:30 Neutrophils # 4.3 k/uL (1.3-7.7) 12/27/20 06:30 Lymphocytes # 1.7 k/uL (1.0-4.8) 12/27/20 06:30 Monocytes # 0.3 k/uL (0-1.0) 12/27/20 06:30 Eosinophils # 0.2 k/uL (0-0.7) 12/27/20 06:30 Basophils # 0.1 k/uL (0-0.2) 12/27/20 06:30 Sodium 145 mmol/L (137-145) 12/27/20 06:30 Potassium 5.1 mmol/L (3.5-5.1) 12/27/20 06:30 Chloride 106 mmol/L (98-107) 12/27/20 06:30 Carbon Dioxide 29 mmol/L (22-30) 12/27/20 06:30 Anion Gap 10 mmol/L 12/27/20 06:30 BUN 8 mg/dL (9-20) L 12/27/20 06:30 Creatinine 0.76 mg/dL (0.66-1.25) 12/27/20 06:30 Est GFR (CKD-EPI)AfAm >90 (>60 ml/min/1.73 sqM) 12/27/20 06:30 Est GFR (CKD-EPI)NonAf >90 (>60 ml/min/1.73 sqM) 12/27/20 06:30 Glucose 115 mg/dL (74-99) H 12/27/20 06:30 Calcium 10.5 mg/dL (8.4-10.2) H 12/27/20 06:30 Total Bilirubin 0.5 mg/dL (0.2-1.3) 12/27/20 06:30 AST 47 U/L (17-59) 12/27/20 06:30 ALT 29 U/L (4-49) 12/27/20 06:30 Alkaline Phosphatase 87 U/L (38-126) 12/27/20 06:30 Total Protein 7.3 g/dL (6.3-8.2) 12/27/20 06:30 Albumin 4.6 g/dL (3.5-5.0) 12/27/20 06:30 TSH 2.180 mIU/L (0.465-4.680) 12/27/20 06:30 Urine Opiates Screen Not Detected (NotDetected) 12/26/20 18:30 Ur Oxycodone Screen Not Detected (NotDetected) 12/26/20 18:30 Urine Methadone Screen Not Detected (NotDetected) 12/26/20 18:30 Ur Propoxyphene Screen Not Detected (NotDetected) 12/26/20 18:30 Ur Barbiturates Screen Not Detected (NotDetected) 12/26/20 18:30 U Tricyclic Antidepress Not Detected (NotDetected) 12/26/20 18:30 Ur Phencyclidine Scrn Not Detected (NotDetected) 12/26/20 18:30 Ur Amphetamines Screen Not Detected (NotDetected) 12/26/20 18:30 U Methamphetamines Scrn Not Detected (NotDetected) 12/26/20 18:30 U Benzodiazepines Scrn Not Detected (NotDetected) 12/26/20 18:30 Urine Cocaine Screen Not Detected (NotDetected) 12/26/20 18:30 U Marijuana (THC) Screen Not Detected (NotDetected) 12/26/20 18:30 12/27/20 09:37 IDENTIFYING DATA: Patient is a 65-year-old male who has a history of severe and persistent mental illness diagnosed as schizophrenia. HISTORY OF PRESENT ILLNESS: Patient has a history of schizophrenia and currently lives alone. He is currently on a active court order for treatment which expires in 06/11/2021. Patient was just discharged from the mental health unit last week and according to EPS and ER report patient has been acting violently and threatening others at home. Patient also has been apparently not going to his follow-up [facility] appointments and was brought in on a pickup order. Patient received Haldol D1 100 mg IM on 12/18. Patient was seen in the hallways and was agreeable to speak to real estate underwriter in the office. He claims that he does not know why he is not hospitals and states that "I was just trying to knock and officers came to pick me up and I cooperated with him". He claims that he did miss his [facility] appointment which she found was difficult to get to. He states that he talked on the phone with somebody from "[place]". He did speak about his neighbors "getting into my business" however it was denying being threatening towards them or anybody else. He claims that his sleep is fair and is denying any depression or anxiety today. Patient was somewhat irritable however was goal oriented. He is currently denying any suicidal or homicidal ideations intent or plan and denying any auditory or visual hallucinations. Patient currently smokes cigarettes and his UDS was negative. PAST PSYCHIATRIC HISTORY: He is a long history of schizophrenia and 7 prior admissions to this unit. His last admission she was discharged last week. He was treated in our outpatient clinic until Dr. Peterson left practice and the clinic closed. Now patient is connected with [facility] and has been refusing to go to the appointments. PAST MEDICAL HISTORY: The record he has a history of cancer, hyperlipidemia, or osteoarthritis and pneumonia. ALLERGIES: Nonsteroidal anti-inflammatory medications SUBSTANCE USE HISTORY: He was unable to provide a substance abuse history. According to the record he has a history of alcohol use and possible opiate use problems. FAMILY PSYCHIATRIC/SUBSTANCE USE HISTORY: According to the record he brother who by suicide LEGAL HISTORY:. He does not have legal problems. SOCIAL HISTORY: Lives alone in his own apartment. His brother is his solar tech. He has one child with whom he has no contact. MENTAL STATUS EXAM: General Appearance: Patient appears to be elderly stated age is alert, difficult to redirect at times and argumentative. Patient appears to have poor hygiene and grooming. Behavior: Patient is seated without any agitated behavior. Argumentative at times Speech: Patient's speech is fluent and nonpressured. Mood/Affect: Patient reports their mood is "fine", affect is incongruent and constricted. Suicidality/Homicidality: Patient denies having any homicidal ideation intent or plan. Denies any suicidal ideations intent or plan Perceptions: Patient denies any visual hallucinations and denies any auditory hallucinations Though content/process: Goal oriented. Not endorsing any delusions. Memory and concentration: AOX3, grossly intact for the purposes of this session. Can spell "WORLD" backwards Judgment and insight: Chronically poor STRENGTHS/WEAKNESSES: strength is that patient is resilient. Weakness is that patient has poor judgment and is impulsive INTELLECT: average IMPRESSIONS: Schizophrenia Nicotine dependence PLAN: -Patient is admitted under treatment order status to [facility] for stabilization of psychiatric symptoms and safety. Patient has not signed medication consent and is placed in patient's chart. Patient is currently on a active treatment order until 06/11/2021 -Medications : Patient has received Haldol D1 100 mg IM on 12/18 and is due [id number] however may increase dosing schedule to [id number]. -Ativan and Haldol PRN for agitation/aggression -Patient was informed of the risks, benefits and side effects of the medication and patient verbally consented to taking the medications. Patient signed med consent form and was placed in chart. -Internal Medicine consult to perform medical evaluation and physical. -NRT - nicotine lozenges -SW on board for discharge planning. Encourage patient to participate in groups to work on coping skills. We'll attempt to have patient transfer down to the act team for closer monitoring. Also will likely ask family members to suggest filing for gaurdianship and looking for placement.
[2020-12-27 14:31] LABS: Chol/HDL Ratio 2.12; Cholesterol 127 mg/dL (0-200); LDL Cholesterol,Calculated 47.2 mg/dL (0.0-131.0)
[2020-12-27 16:08] LABS: Hemoglobin A1C 5.3 % (4.0-6.0)
--- NOTE | 2020-12-27 18:53 | CONS ---
CONSULTATION DATE OF SERVICE: 12/27/2020 CHIEF COMPLAINT: Acute psychosis with history of schizophrenia. SUMMARY OF HISTORY OF PRESENT ILLNESS: This is another of many admissions for this 65-year-old white male. He had been fairly stable and been coming the office for routine health care and then was suddenly not seen. His brother called stating that he was manifesting psychotic behaviors, but would not go to the emergency room. Apparently, somehow the police were summoned to his home and he was brought in. He was last seen here and his last visit office visit note was in November. It is not clear if he has been taking medications. He had been on psychiatric medications in the past. REVIEW OF SYSTEMS: Not reliably obtained, but he has no complaints. Past medical history, family history, and personal and social histories indicated he is ALLERGIC to NSAIDs. He has had several basal and squamous cell carcinomas removed in the past, as well as cataracts. He has had psychiatric hospital admissions in the past. He used to smoke. PHYSICAL EXAMINATION: Blood pressure is 138/81 with a pulse of 76, respirations of 17. He is afebrile, in general appeared to be slender, well developed, well nourished, in no acute distress. Skin color is normal, skin is warm, dry. Lymph nodes are not enlarged. Head, ears, eyes, nose, mouth and throat are normal. The chest is clear. Cardiac exam is normal. Abdomen is soft, nontender and flat. Extremities: Normal neurological is intact. He is admitted to the hospital. DIAGNOSIS: 1. Acute psychosis. 2. Schizophrenia. RECOMMENDATIONS: None at this time. Thank you, respectfully, Ashish Card II, MD [facility]OD[facility] / DEANNA: [phone] /
[2020-12-27] MEDS: ATORVASTATIN 20 MG TAB PO SCH (20:03)
[2020-12-28] MEDS: NICOTINE POLACRILEX 2 MG GUM BUCCAL PRN ×6 (00:24→21:27)
[2020-12-28] MEDS: ACETAMINOPHEN TAB 325 MG TAB PO PRN ×6 (00:24→21:27)
[2020-12-28] MEDS: PANTOPRAZOLE 40 MG TABLET PO SCH ×2 (08:53→21:30)
--- NOTE | 2020-12-28 11:41 | P.PN ---
Progress Note - Text Progress Note Date: 12/28/20 Interval History: Patient was seen wandering the hallways and was directable and agreeable to sp dio with typewriter repairer in the office. Patient to the use of a constricted affect and appears to be suspicious with [place] at times. He claims that he is doing "just fine" and denied any overnight complaints. He states that he is able to sleep throughout the night. He claims that he does not need to take medications and continues to have poor insight into his psychiatric condition and his need for medications. At this time patient denies any suicidal or homical ideations, intent or plan. Patient denies any auditory, visual hallucinations and denies any paranoia or delusions. Patient denies any side effects from the medications and has been compliant with meds. Mental Status Exam: General Appearance: Patient appears to be elderly stated age is alert, difficult to redirect at times. Patient appears to have improving hygiene and grooming. Behavior: Patient is seated without any agitated behavior. Argumentative at times, improving mildly Speech: Patient's speech is fluent and nonpressured. Mood/Affect: Patient reports their mood is "just fine", affect is congruent and constricted. Suicidality/Homicidality: Patient denies having any homicidal ideation intent or plan. Denies any suicidal ideations intent or plan Perceptions: Patient denies any visual hallucinations and denies any auditory hallucinations Though content/process: Goal oriented. Not endorsing any delusions. Memory and concentration: AOX3, grossly intact for the purposes of this session. Judgment and insight: Chronically poor Assessment Schizophrenia Nicotine dependence Plan: -Patient continues to meet criteria for inpatient psychiatric admission for symptom stabilization and safety. Patient has not signed medication consent and was placed in patient's chart. Patient is currently on an active court order u ntil 06/11/2021. -Medications: Patient has received Haldol D1 100 mg IM on 12/18 and is due [id number] however may increase dosing schedule to [id number]. -When necessary Ativan and Haldol for agitation/aggression. -NRT - nicotine lozenges -SW on board for discharge planning. Encouraged the patient to participate in milieu. We'll attempt to have patient transfer down to the act team for closer monitoring. Also will likely ask family members to suggest filing for gaurdianship and looking for placement. likely discharge in 1-2 days.
[2020-12-28] MEDS: ATORVASTATIN 20 MG TAB PO SCH (21:27)
[2020-12-29] MEDS: NICOTINE POLACRILEX 2 MG GUM BUCCAL PRN ×5 (01:35→20:41)
[2020-12-29] MEDS: ACETAMINOPHEN TAB 325 MG TAB PO PRN ×5 (01:36→19:56)
[2020-12-29] MEDS: PANTOPRAZOLE 40 MG TABLET PO SCH ×2 (08:46→19:56)
--- NOTE | 2020-12-29 11:31 | P.PN ---
Progress Note - Text Progress Note Date: 12/29/20 Interval History: Patient was seen wandering the hallways and was directable and agreeable to sp trellk with sba underwriter in the office. Patient stated that he just came out of group. He spoke about the topic in group today and other peoples problems and situation however did not reflect on his own. He continues to have a constricted affect and was suspicious of sba underwriter at times. He is denying any current complaints at this time. He states that his mood is "alright". He is denying any depression or anxiety today. He spoke briefly about his neighbors and states that "they can do whatever they want I don't care anymore". He states that he is able to sleep throughout the night aching "cat naps". He claims that he does not need to take medications and continues to have poor insight into his psychiatric condition and his need for medications. At this time patient denies any suicidal or homical ideations, intent or plan. Patient denies any auditory, visual hallucinations and denies any paranoia or delusions. Patient denies any side effects from the medications and has been compliant with meds. Mental Status Exam: General Appearance: Patient appears to be elderly stated age is alert, difficult to redirect at times. Patient appears to have improving hygiene and grooming. Behavior: Patient is seated without any agitated behavior. Argumentative at times, improving mildly Speech: Patient's speech is fluent and nonpressured. Mood/Affect: Patient reports their mood is "ok", affect is congruent and constricted. Suicidality/Homicidality: Patient denies having any homicidal ideation intent or plan. Denies any suicidal ideations intent or plan Perceptions: Patient denies any visual hallucinations and denies any auditory hallucinations Though content/process: Goal oriented. Not endorsing any delusions. Memory and concentration: AOX3, grossly intact for the purposes of this session. Judgment and insight: Chronically poor Assessment Schizophrenia Nicotine dependence Plan: -Patient continues to meet criteria for inpatient psychiatric admission for symptom stabilization and safety. Patient has not signed medication consent and was placed in patient's chart. Patient is currently on an active court order until 06/11/2021. -Medications: Patient has received Haldol D1 100 mg IM on 12/18 and is due [id number] however may increase dosing schedule to [id number]. -When necessary Ativan and Haldol for agitation/aggression. -NRT - nicotine lozenges -SW on board for discharge planning. Encouraged the patient to participate in milieu. Yanelis taniya claims that she does not want to file for gaurdianship at this time. [facility] will enroll patient into [facility] program and do the intake on the unit friday then patient will be discharged afterwards.
[2020-12-29] MEDS: ATORVASTATIN 20 MG TAB PO SCH (19:56)
[2020-12-30] MEDS: ACETAMINOPHEN TAB 325 MG TAB PO PRN ×4 (01:38→20:01)
[2020-12-30] MEDS: NICOTINE POLACRILEX 2 MG GUM BUCCAL PRN ×4 (01:43→20:29)
[2020-12-30] MEDS: PANTOPRAZOLE 40 MG TABLET PO SCH ×2 (08:38→20:02)
[2020-12-30] MEDS ORDERED: diphenhydrAMINE 25 MG CAP PO PRN (17:39)
[2020-12-30] MEDS: ATORVASTATIN 20 MG TAB PO SCH (20:01)
--- NOTE | 2020-12-31 01:32 | P.PN ---
Progress Note - Text Progress Note Date: 12/30/20 Subjective: Patient was seen today as a cross coverage for Dr. Amaya. The patient was evaluated, chart reviewed, case discussed with the treatment team. Patient reports interrupted sleep last night, and appetite was reported as " fine". Patient has been going to groups and other unit activities. The patient is not fully compliant with his medications and denies any adverse reactions. Patient reports refused to take some medications because they are not exactly his home meds. He denies feeling depressed, hopeless, or suicidal. Denies any anxiety or mood instability symptoms. Denies any hallucinations, paranoid ideation, or delusions. He agreed to consider diphenhydramine to help with insomnia, and insisted to be the generic and did not Benadryl. He expressed doesn't agree was taking Haldol and he feels like have been forced to take it. Objective: Vitals has been reviewed. Mental status examination; Appearance: The patient appears stated age, adequately groomed and dressed, no specific features. Gait/posture: Normal gait, Normal arm swinging: No abnormal movements. Attitude and behavior: engaged, cooperative, eye contact. Motor activity: Normal psychomotor activity Speech: Normal rate, tone. Mood: Anxious Affect: Constricted Thought form: goal-directed, linear, coherent. Thought content: Non-delusional, denies suicidal thoughts, denies homicidal thoughts, denies intentions or plans. Perception: Denies any auditory or visual hallucinations Attention: No impairment. Orientation: Patient patient was fully oriented to time place person and situation. Insight: Patient has limited insight about his psychiatric disorder. Judgment: Patient has limited judgment about his psychiatric treatment. Assessment: Schizophrenia Nicotine dependence Plan: Continue inpatient level of care due to need for further monitoring and st abilization Precautions: Continue 15 minutes check for safety. Consider medical consultation if any acute medical issues arise. Provide the patient individual, group therapy, substance use disorder counseling to give better insight and learn coping skills. Medications: Continue Haldol Decanooate 100 mg every 3 weeks for psychosis. last dose given December 18 NRT Diphenhydramine 25 mg at bedtime as needed for insomnia Continue as needed medications for psychiatric emergencies including psychosis, agitation and anxiety. Continue non-psychiatric medications for medical conditions as recommended by the medical team. Discharge patient to OUTPATIENT services upon a stabilization
[2020-12-31] MEDS: ACETAMINOPHEN TAB 325 MG TAB PO PRN ×3 (05:47→20:05)
[2020-12-31] MEDS: NICOTINE POLACRILEX 2 MG GUM BUCCAL PRN ×3 (05:48→20:33)
[2020-12-31 05:51] VITALS: RESP 16; TEMP 97.2
[2020-12-31] MEDS: PANTOPRAZOLE 40 MG TABLET PO SCH ×2 (08:49→20:04)
[2020-12-31] MEDS ORDERED: diphenhydrAMINE 25 MG CAP PO PRN (15:07)
[2020-12-31] MEDS: ATORVASTATIN 20 MG TAB PO SCH (20:05)
--- NOTE | 2020-12-31 23:42 | P.PN ---
Progress Note - Text Progress Note Date: 12/31/20 Subjective: Patient was seen today as a cross coverage for Dr. Amaya. The patient was evaluated, chart reviewed, case discussed with the treatment team. Patient reports continued to have interrupted sleep last night and Benadryl didn't help because given 25 mg only and he used to take 75 mg at home to help with his sleep. He denies any appetite problems. Patient attends selected groups. Patient is not fully compliant with taking his medications. He denies feeling depressed, hopeless, or suicidal. He denies any hallucinations, paranoid ideation, delusions. Denies any manic symptoms. Patient continues to present guarded and paranoid was superficial answers and not engaged with other peers. Objective: Vitals has been reviewed. Mental status examination; Appearance: The patient appears stated age, adequately groomed and dressed, no specific features. Gait/posture: Normal gait, Normal arm swinging: No abnormal movements. Attitude and behavior: engaged, cooperative, eye contact. Motor activity: Normal psychomotor activity Speech: Normal rate, tone. Mood: Anxious Affect: Constricted Thought form: goal-directed, linear, coherent. Thought content: Non-delusional but presents paranoid, denies suicidal thoughts, denies homicidal thoughts, denies intentions or plans. Perception: Denies any auditory or visual hallucinations Attention: No impairment. Orientation: Patient patient was fully oriented to time place person and situation. Insight: Patient has limited insight about his psychiatric disorder. Judgment: Patient has limited judgment about his psychiatric treatment. Assessment: Schizophrenia Nicotine dependence Plan: Continue inpatient level of care due to need for further monitoring and stabilization Precautions: Continue 15 minutes check for safety. Consider medical consultation if any acute medical issues arise. Provide the patient individual, group therapy, substance use disorder counseling to give better insight and learn coping skills. Medications: Continue Haldol Decanooate 100 mg every 3 weeks for psychosis. last dose given December 18 NRT Increase Diphenhydramine to 75 mg at bedtime as needed for insomnia Continue as needed medications for psychiatric emergencies including psychosis, agitation and anxiety. Continue non-psychiatric medications for medical conditions as recommended by the medical team. Discharge patient to OUTPATIENT services upon a stabilization
[2021-01-01] MEDS: ACETAMINOPHEN TAB 325 MG TAB PO PRN ×4 (00:13→14:50)
[2021-01-01] MEDS: NICOTINE POLACRILEX 2 MG GUM BUCCAL PRN ×4 (00:18→14:50)
[2021-01-01 00:30] VITALS: BP 134/64; PULSE 75
[2021-01-01] MEDS: PANTOPRAZOLE 40 MG TABLET PO SCH (09:03)
--- NOTE | 2021-01-01 09:46 | P.DS ---
Providers Date of admission: 12/26/20 20:30 Expected date of discharge: 01/01/21 Attending physician: Slick Amaya MD Consults: 12/26/20 20:47 Consult Physician Routine Consulting Provider: Ashish Card Consult Reason/Comments: H&P and medical Do you want consulting provider notified?: Yes Primary care physician: Ashish Card - Discharge Diagnosis(es) (1) Schizophrenia Current Visit: Yes Status: Acute Priority: High (2) Nicotine dependence Current Visit: Yes Status: Acute Priority: Low Hospital Course: Admission HPI: Admission note was completed by administrative underwriter "Patient is a 65-year-old male who has a history of severe and persistent mental illness diagnosed as schizophrenia. Patient has a history of schizophrenia and currently lives alone. He is currently on a active court order for treatment which expires in 06/11/2021. Patient was just discharged from the mental health unit last week and according to EPS and ER report patient has been acting violently and threatening others at home. Patient also has been apparently not going to his follow-up [facility] appointments and was brought in on a pickup order. Patient received Haldol D1 100 mg IM on 12/18. Patient was seen in the hallways and was agreeable to speak to administrative underwriter in the office. He claims that he does not know why he is not hospitals and states that "I was just trying to knock and officers came to pick me up and I cooperated with him". He claims that he did miss his [facility] appointment which she found was difficult to get to. He states that he talked on the phone with somebody from "[place]". He did speak about his neighbors "getting into my business" however it was denying being threatening towards them or anybody else. He claims that his sleep is fair and is denying any depression or anxiety today. Patient was somewhat irritable however was goal oriented. He is currently denying any suicidal or homicidal ideations intent or plan and denying any auditory or visual hallucinations. Patient currently smokes cigarettes and his UDS was negative." Hospital course: Upon admission to the unit patient was initially hostile and aggressive. Patient was however already on an acitve court order until 06/11/2021. Patient got along well with other patients on the unit and followed unit protocol. Patient was compliant with the medications and denied any side effects throughout hospital course. Patient was started on benadryl 75mg qhs prn for insomnia. Patient already had received Haldol Dec 100mg IM on 12/18 and will be due for his next injection on 01/08/21. Patient spoke of his stressors and engaged in therapy both group and individual. Patient was also seen by medical team for history and physical exam. Throughout the course of the hospitalization patient gradually improved with regards to mood, psychosis/aggression, sleep and returned back to his baseline level of functioning. On the day of discharge patient denied any suicidal or homicidal ideations intent or plan denied any auditory or visual hallucinations. Patient endorsed wanting to live for his future and family. The patient denied any access to guns or weapons. Patient denied any paranoia and did not endorse any delusions. Patient does not have a significant history of substance abuse however was counseled on abstaining from all substances including alcohol and marijuana. Patient was also counseled on the medications and need for regular compliance and was encouraged to follow-up with their outpatient appointment for mental health and also for primary care. Prior to discharge a family meeting will be arranged by social worker psychiatric to answer any questions and ensure safety upon discharge. Patient will b enrolled in the [facility] step program with [facility] for closer monitoring. Mental status exam: General Appearance: Patient appears to be thin,stated age is alert, pleasant, and cooperative. Patient is in no acute distress and has improved hygiene and grooming Behavior: Patient is calmly seated without any agitated behavior. Speech: Patient's speech is fluent and nonpressured. Mood/Affect: Patient reports their mood is "good", affect is congruent Suicidality/Homicidality: Patient denies having any suicidal or homicidal ideation intent or plan. Perceptions: Patient denies any auditory or visual hallucinations. Though content/process: There is no evidence of any delusional thought content and thought process is linear and goal-directed. Memory and concentration: AOX3, grossly intact for the purposes of this session. Can spell "WORLD" backwards correctly. Judgment and insight: chronically poor, however has improved with guarded prognosis Impression: Schizophrenia Nicotine dependence Plan: -Continue with discharge today as patient has improved and stabilized psychiatrically and is not currently an imminent threat to himself and/or others. Patient will remain at chronically elevated risk for harm to self and/or others due to his impulsivity and chronically poor insight and judgment -Continue medications: continue with benadryl 75mg qhs prn for insomnia. Patient already had received Haldol Dec 100mg IM on 12/18 and will be due for his next injection on 01/08/21 -Patient was counseled on the need for medication compliance and appropriate follow-up at mental health and also primary care for medical issues. Patient verbalized understanding and agreed. -Social work to arrange for and conduct family meeting to ensure safety upon discharge and answer any questions/concerns. Social work also to arrange for patients follow up appointments with [facility] for psychiatric care along with follow up with primary care provider. Patient will be enrolled in the next step program with [facility] for closer monitoring. encouraged taniya to file for [facility] however she did not choose to therefore will ask [facility] to file for it once patient is d/c -Patient counseled on abstaining from recreational drugs and marijuana and alcohol. Was informed/educated on the adverse effects on their physical and mental health. Patient verbally agreed and understood. -Patient was instructed to return to the hospital or seek immediate medical care if their psychiatric or medical symptoms do worsen or reoccur. Allergies Allergy/AdvReac Type Severity Reaction Status Date / Time NSAIDS (Non-Steroidal AdvReac Nausea Verified 12/26/20 18:37 Anti-Inflamma Laboratory Results WBC 6.8 k/uL (3.8-10.6) 12/27/20 06:30 RBC 4.66 m/uL (4.30-5.90) 12/27/20 06:30 Hgb 15.1 gm/dL (13.0-17.5) 12/27/20 06:30 Hct 45.9 % (39.0-53.0) 12/27/20 06:30 MCV 98.4 fL (80.0-100.0) 12/27/20 06:30 MCH 32.5 pg (25.0-35.0) 12/27/20 06:30 MCHC 33.0 g/dL (31.0-37.0) 12/27/20 06:30 RDW 12.9 % (11.5-15.5) 12/27/20 06:30 Plt Count 222 k/uL (150-450) 12/27/20 06:30 MPV 7.3 12/27/20 06:30 Neutrophils % 64 % 12/27/20 06:30 Lymphocytes % 25 % 12/27/20 06:30 Monocytes % 5 % 12/27/20 06:30 Eosinophils % 3 % 12/27/20 06:30 Basophils % 1 % 12/27/20 06:30 Neutrophils # 4.3 k/uL (1.3-7.7) 12/27/20 06:30 Lymphocytes # 1.7 k/uL (1.0-4.8) 12/27/20 06:30 Monocytes # 0.3 k/uL (0-1.0) 12/27/20 06:30 Eosinophils # 0.2 k/uL (0-0.7) 12/27/20 06:30 Basophils # 0.1 k/uL (0-0.2) 12/27/20 06:30 Sodium 145 mmol/L (137-145) 12/27/20 06:30 Potassium 5.1 mmol/L (3.5-5.1) 12/27/20 06:30 Chloride 106 mmol/L (98-107) 12/27/20 06:30 Carbon Dioxide 29 mmol/L (22-30) 12/27/20 06:30 Anion Gap 10 mmol/L 12/27/20 06:30 BUN 8 mg/dL (9-20) L 12/27/20 06:30 Creatinine 0.76 mg/dL (0.66-1.25) 12/27/20 06:30 Est GFR (CKD-EPI)AfAm >90 (>60 ml/min/1.73 sqM) 12/27/20 06:30 Est GFR (CKD-EPI)NonAf >90 (>60 ml/min/1.73 sqM) 12/27/20 06:30 Glucose 115 mg/dL (74-99) H 12/27/20 06:[address] Glu mg/dL 105 12/27/20 06:30 Hemoglobin A1c 5.3 % (4.0-6.0) 12/27/20 06:30 Calcium 10.5 mg/dL (8.4-10.2) H 12/27/20 06:30 Total Bilirubin 0.5 mg/dL (0.2-1.3) 12/27/20 06:30 AST 47 U/L (17-59) 12/27/20 06:30 ALT 29 U/L (4-49) 12/27/20 06:30 Alkaline Phosphatase 87 U/L (38-126) 12/27/20 06:30 Total Protein 7.3 g/dL (6.3-8.2) 12/27/20 06:30 Albumin 4.6 g/dL (3.5-5.0) 12/27/20 06:30 Triglycerides 99.0 mg/dL (0.0-149.0) 12/27/20 06:30 Cholesterol 127 mg/dL (0-200) 12/27/20 06:30 LDL Cholesterol, Calc 47.2 mg/dL (0.0-131.0) 12/27/20 06:30 VLDL Cholesterol, Calc 19.80 mg/dL (5.00-40.00) 12/27/20 06:30 HDL Cholesterol 60.0 mg/dL (40.0-60.0) 12/27/20 06:30 Cholesterol/HDL Ratio 2.12 12/27/20 06:30 TSH 2.180 mIU/L (0.465-4.680) 12/27/20 06:30 Urine Opiates Screen Not Detected (NotDetected) 12/26/20 18:30 Ur Oxycodone Screen Not Detected (NotDetected) 12/26/20 18:30 Urine Methadone Screen Not Detected (NotDetected) 12/26/20 18:30 Ur Propoxyphene Screen Not Detected (NotDetected) 12/26/20 18:30 Ur Barbiturates Screen Not Detected (NotDetected) 12/26/20 18:30 U Tricyclic Antidepress Not Detected (NotDetected) 12/26/20 18:30 Ur Phencyclidine Scrn Not Detected (NotDetected) 12/26/20 18:30 Ur Amphetamines Screen Not Detected (NotDetected) 12/26/20 18:30 U Methamphetamines Scrn Not Detected (NotDetected) 12/26/20 18:30 U Benzodiazepines Scrn Not Detected (NotDetected) 12/26/20 18:30 Urine Cocaine Screen Not Detected (NotDetected) 12/26/20 18:30 U Marijuana (THC) Screen Not Detected (NotDetected) 12/26/20 18:30 Vital Signs Temp 97.2 F L 01/01/21 00:15 Pulse 75 01/01/21 00:15 Resp 16 01/01/21 00:15 BP 134/64 01/01/21 00:15 Pulse Ox 96 01/01/21 00:15 Intake & Output 12/31/20 01/01/21 01/01/21 18:59 06:59 18:59 Weight 76.1 kg Patient Condition at Discharge: Stable Plan - Discharge Summary Discharge Rx Participant: No New Discharge Prescriptions: New diphenhydrAMINE [Benadryl] 75 mg PO HS PRN 30 Days cap PRN Reason: Insomnia Nicotine Polacrilex [Nicorette] 4 mg BUCCAL Q4HR PRN 30 Days gum PRN Reason: Nicotine Cravings Continue Atorvastatin [Lipitor] 20 mg PO HS 30 Days tab Haloperidol Decanoate [Haldol D] 100 mg IM Q21D #1 vial Omeprazole 20 mg PO BID 30 Days cap Discontinued Nicotine Polacrilex [Nicorette] 2 mg BUCCAL Q4HR PRN 28 Days gum PRN Reason: Nicotine Cravings Discharge Medication List Atorvastatin [Lipitor] 20 mg PO HS 30 Days tab 01/01/21 [Rx] Haloperidol Decanoate [Haldol D] 100 mg IM Q21D #1 vial 01/01/21 [Rx] Nicotine Polacrilex [Nicorette] 4 mg BUCCAL Q4HR PRN 30 Days gum 01/01/21 [Rx] Omeprazole 20 mg PO BID 30 Days cap 01/01/21 [Rx] diphenhydrAMINE [Benadryl] 75 mg PO HS PRN 30 Days cap 01/01/21 [Rx] Follow up Appointment(s)/Referral(s): Ashish Card MD [Primary Care Provider] - 1-2 days Activity/Diet/Wound Care/Special Instructions: Activity and diet as tolerated. Avoid the use of street drugs and alcohol. Take all medications as prescribed. When you are in need of refills on your medications please contact your medical provider and/or outpatient psychiatrist to have this done. Please go to scheduled outpatient appointment for aftercare treatment. If symptoms return or become worse, call the crisis line at and/or go to the nearest emergency room for evaluation. Discharge Disposition: HOME SELF-CARE
[2021-01-08] MEDS ORDERED: HALOPERIDOL DECANOATE 100 MG/ML 1 ML VIAL IM SCH (21:00)
== END 2021-01-01 17:33 | disposition home or self-care (01) | DRG 885 ==
LOC: EC 16:49 → 3MHU 20:30
PROVIDERS: ADMIT Psychiatry & Neurology Psychiatry; ATTEND Psychiatry & Neurology Psychiatry
DX: F25.9 Schizoaffective disorder, unspecified (principal); R45.851 Suicidal ideations; E78.5 Hyperlipidemia, unspecified; F17.200 Nicotine dependence, unspecified, uncomplicated; F31.9 Bipolar disorder, unspecified; Z85.828 Personal history of other malignant neoplasm of skin; F32.9 Major depressive disorder, single episode, unspecified; F41.9 Anxiety disorder, unspecified; H26.9 Unspecified cataract; I83.90 Asymptomatic varicose veins of unspecified lower extremity; Z79.899 Other long term (current) drug therapy; M19.90 Unspecified osteoarthritis, unspecified site
CPT/HCPCS: 80053; 80061; 80306; 82075; 83036; 84443; 85025; 99285